=== PATIENT | male | born 1990 | race Caucasian/White ===

== ENCOUNTER 2018-12-06 14:36 | Emergency (ER) | payer SELFPAY ==
[2018-12-06 14:37] VITALS: BP 132/83; PULSE 90; RESP 16; TEMP 36.6; O2SAT 99; BMI 19.6
--- NOTE | 2018-12-06 14:52 | RAD_ITS ---
STUDY: X-RAY - RIGHT HAND REASON FOR EXAM: Male, 28 years old. Punched a wall, swelling TECHNIQUE: 3 view(s) of the hand. COMPARISON: None. FINDINGS: Normal radiocarpal articulation. Normal distal radioulnar joint. Normal visualized carpal bones. Normal carpal articulations Normal carpometacarpal articulation of the thumb. Normal second through fifth carpometacarpal joints. Normal metacarpi. Normal metacarpophalangeal joint of the thumb. Normal interphalangeal joint of the thumb. Normal proximal and distal phalanges of the thumb. Normal metacarpophalangeal joints of the second through fifth fingers. Normal proximal and distal interphalangeal joints of the second through fifth fingers. Normal phalanges of the second through fifth fingers. Dorsal hand soft tissue swelling. RAD/Hand Min 3 Views IMPRESSION: Dorsal hand soft tissue swelling without demonstrated fracture. Electronically Signed: Zak Curry MD at 15:28 EDT , Service support ,
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
[2018-12-06] MEDS: HYDROcodone Bitartrate/Apap 5/325 Tablet PO (14:57)
[2018-12-06 16:01] VITALS: BP 142/83; PULSE 73; RESP 15
== END 2018-12-06 16:03 | disposition home or self-care (01) ==
LOC: ED 15:07
PROVIDERS: Emergency Provider Emergency Medicine
DX: S60.221A Contusion of right hand, initial encounter (principal); W22.09XA Striking against other stationary object, initial encounter; Y93.9 Activity, unspecified; Y92.9 Unspecified place or not applicable; Y99.9 Unspecified external cause status
CPT/HCPCS: 73130; 99283

== ENCOUNTER 2020-02-07 18:24 | Emergency (ER) | payer SELFPAY ==
[2020-02-07 18:25] VITALS: BP 142/90; PULSE 73; PULSE 75; RESP 16; TEMP 36.6; O2SAT 100; BMI 19.8
--- NOTE | 2020-02-07 19:02 | EKG12_ITS ---
Test Reason : DIZZINESS Blood Pressure : / mmHG Vent. Rate : 060 BPM Atrial Rate : 060 BPM P-R Int : 108 ms QRS Dur : 098 ms QT Int : 384 ms P-R-T Axes : 040 076 066 degrees QTc Int : 384 ms Sinus rhythm with short AL Otherwise normal ECG Confirmed by CHARLES CALDERA, LIZET ([id number]), technical editor GUILLERMO VALE ([id number]) on 02/10/2020 10:47:34 AM Referred By: DARIUS Confirmed By:LIZET SOTO MD
--- NOTE | 2020-02-07 19:03 | ED.VISSUMM ---
- ER Visit Summary Date of Service: 02/07/20 Chief Complaint: Lightheaded and passed out 3 times on Saturday History of Present Illness: The patient is a 30 M no significant past medical history prior cholecystectomy. He states he was cutting grass on Saturday thought was hot. Said he felt lightheaded and said he passed out 3 separate times. Says normally not passed out before. He denies any chest pain or shortness of breath. No abdominal pain. No nausea, vomiting or diarrhea. States he is eating and drinking well. Denies any head injury or severe headaches. Physical Examination: Young male no acute distress vital signs are stable afebrile pulse ox 90% on room air no signs of hypoxia. H EENT exam normal. TMs are normal. Pupils round react light his motions are intact. No facial droop. Normal speech. Moist wheeze members. Posterior pharynx normal. No signs of trauma to his face or scalp. Neck nontender no meningismus. Able to touch chin to chest. No lymphadenopathy. Lungs clear to auscultation bilaterally. Heart regular rhythm no murmur rate about 75. Abdomen soft nontender normal bowel sounds no peritoneal signs. Extremities moves all 4. Calves nontender no edema no cords. 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 Dorsi plantarflexion intact. Normal range of motion both upper and lower extremities. Normal strength and sensation. Back nontender. Neurologically awake alert no focal motor deficits. NIH of 0. Fingertip to nose [id number] all within normal limits. Test Results: CBC shows a count of 6. Hemoglobin 16. No bands. Chemistries unremarkable normal creatinine gap. EKG normal sinus rhythm rate of 60 with no acute signs of AR or ischemia. No dysrhythmia. And unchanged from prior EKG from 2010. His SD interval is 108. Emergency Department Course and Treatment: Exam normal. Reportedly passed out 3 times on Saturday. None since. Screening labs orthostatic vital signs being obtained. Treatment Plan: Repeat exam patient is doing well at 8:19 PM. He and I went over his test he is comfortable being discharged home. Disposition: discharge Impression: Acute syncope uncertain etiology This note was generated with [employer] dictation software. It may contain incorrect words, spelling, and punctuation that were not noted in review of the chart prior to signing ED Disposition - Plan for ED Patient: Referrals: Care Physician,No Primary [Primary Care Provider] -
[2020-02-07 19:27] LABS: Absolute Neutrophil Count 4.7 X10^3/uL (2.0-7.7); Basophil# 0.04 X10^3/uL; Basophil% 0.6 % (0-1); Eosinophil# 0.13 X10^3/uL; Hematocrit 49.7 % (40-54); Hemoglobin 16.9 g/dL (13.0-16.5); Lymphocyte % 19.7 % (19-41); Mean Corpuscular Hgb 32.4 pg (27.0-32.0); Mean Corpuscular Volume 95.2 fL (80-94); Monocyte# 0.46 X10^3/uL; NRBC Flagged by Analyzer 0 % (0-5); Neutrophil # 4.67 X10^3/uL (2.7-7.7); Neutrophil % 70.5 % (47-70); Platelet Count 228 K/mm3 (150-450); RBC Distribution Width CV 11.7 % (11.6-14.6); RBC Distribution Width SD 40.3 fl (35.1-43.9); Red Blood Count 5.22 M/mm3 (4.6-6.2); White Blood Count 6.6 K/mm3 (4.4-11.0)
[2020-02-07 19:44] VITALS: BP 126/88; BP 129/84; BP 130/70; PULSE 66; PULSE 68; PULSE 70
[2020-02-07] MEDS: 0.9% Normal Saline 1,000 ML 1000 ML IV (19:45)
[2020-02-07 19:47] LABS: Anion Gap 3 (5-15); BUN 14 mg/dL (7-18); BUN/Creat Ratio 11.7 RATIO (10-20); Calcium,Total 8.6 mg/dL (8.5-10.1); Chloride 108 mmol/L (98-107); EST Glomerular Filtration Rate 75 mL/min (>60); Est Glom Filt Rate - Afr Amer 91 mL/min (>60); Estimated Creatinine Clearance 76.58 ml/min; Glucose 86 mg/dL (74-106); Potassium 4.6 mmol/L (3.5-5.1); Sodium Level 143 mmol/L (136-145)
--- NOTE | 2020-02-07 20:22 | ED.DEP ---
ED Disposition - Plan for ED Patient: Disposition: Home or Assisted Living Instructions: ED Fainting Uncertain Cause Referrals: Ra Levy MD [STAFF PHYSICIAN] - 3-5 Days if not improving Additional Instructions: Plenty of fluids and rest. Your blood work, blood counts, electrolytes and EKG today were normal. This may have been a simple case of dehydration when you were working in the heat. Follow-up if not improving or return if worse.
[2020-02-07 20:31] VITALS: BP 112/94; PULSE 65; RESP 16; O2SAT 100
== END 2020-02-07 20:31 | disposition home or self-care (01) ==
PROVIDERS: Emergency Provider Emergency Medicine
DX: R55 Syncope and collapse (principal); Z72.0 Tobacco use
CPT/HCPCS: 80048; 85025; 93005; 96360; 99284; J7030; A4216

== ENCOUNTER 2020-04-17 22:25 | Emergency (ER) | payer SELFPAY ==
[2020-04-17 22:25] VITALS: BP 145/98; PULSE 90; RESP 15; TEMP 36.8; O2SAT 99; BMI 20.3
--- NOTE | 2020-04-17 23:02 | RAD_ITS ---
HISTORY: injured knee while playing basketball ADDITIONAL HISTORY: None provided. EXAMINATION/TECHNIQUE: XR Knee Complete 4 Views or More Left Number of images including paperwork: 4 COMPARISON: None FINDINGS: BONES: No acute fracture. JOINTS: No subluxation. Small joint effusion. SOFT TISSUES: No distinct foreign body. RAD/Knee 4 or More Views IMPRESSION: No acute osseous abnormality. Small joint effusion. at 2349 Reported and signed by: Nichole Carlos MD Electronically Signed: Nichole Carlos MD at 23:49 EDT Tel , Service support ,
[2020-04-17] MEDS: Naproxen 500 MG Tablet PO (23:11)
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
[2020-04-18 00:06] VITALS: BP 135/78; PULSE 72; RESP 16; O2SAT 100
== END 2020-04-18 00:07 | disposition home or self-care (01) ==
LOC: ED 23:14
PROVIDERS: Emergency Provider Emergency Medicine
DX: M25.562 Pain in left knee (principal); Z72.0 Tobacco use
CPT/HCPCS: 73564; 99281

== ENCOUNTER → 2020-04-30 08:34 | Outpatient (CLI) | payer SELFPAY ==
[2020-04-22 08:08] VITALS: BMI 20.7
--- NOTE | 2020-04-30 08:37 | MRI_ITS ---
STUDY: MRI LEFT KNEE REASON FOR EXAM: Male, 30 years old. Knee injury, knee pain. TECHNIQUE: Standardized fat and water weighted pulse sequences were obtained in all 3 orthogonal planes. COMPARISON: 04/17/2020 FINDINGS: 1 cm trizonal flap tear of the posterior horn body junction of the medial meniscus extending to the inferior surface. Normal hyaline cartilage of the medial femorotibial compartment. Normal medial femoral condyle and tibial plateau. Normal medial collateral ligamentous complex (MCL). Normal distal semimembranosus, gracilis and semitendinosus tendons. Normal lateral meniscus. Normal hyaline cartilage of the lateral femorotibial compartment. Normal lateral femoral condyle and tibial plateau. Normal proximal tibiofibular articulation. Normal lateral collateral (fibular) ligament. Normal popliteus tendon. Normal biceps femoris tendon. Normal anterior cruciate ligament (ACL). Normal posterior cruciate ligament (PCL). Normal congruent patellofemoral articulation. Normal hyaline cartilage of the patellofemoral compartment. Normal medial and lateral patellar retinaculum. Normal quadriceps tendon. Normal patellar tendon. Normal Hoffa''s fat pad. There is a small volume joint effusion. 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 The soft tissues are unremarkable. The otherwise visualized osseous structures are unremarkable. MRI/Lower Ext Joint Only (Routine) IMPRESSION: 1 cm trizonal flap tear of the posterior horn body junction of the medial meniscus extending to the inferior surface which may be acute or chronic. Electronically Signed: Guru Covarrubias MD at 13:32 EDT Tel , Service support ,
== END ==
PROVIDERS: Referring Provider Orthopaedic Surgery; Visit Provider Orthopaedic Surgery
DX: S83.242A Other tear of medial meniscus, current injury, left knee, initial encounter (principal); X58.XXXA Exposure to other specified factors, initial encounter; M23.92 Unspecified internal derangement of left knee
CPT/HCPCS: 73721

== ENCOUNTER → 2020-06-13 09:05 | Outpatient (CLI) | payer SELFPAY ==
[2020-04-22 08:08] VITALS: BMI 20.7
== END ==
PROVIDERS: Referring Provider Orthopaedic Surgery; Visit Provider Orthopaedic Surgery
DX: Z01.812 Encounter for preprocedural laboratory examination (principal); Z20.828 Contact with and (suspected) exposure to other viral communicable diseases
CPT/HCPCS: 36415; 87426; C9803

== ENCOUNTER 2021-02-27 11:27 | Emergency (ER) | payer OTHER, SELFPAY ==
[2021-02-27 11:27] VITALS: BP 150/90; PULSE 94; RESP 18; TEMP 36.2; O2SAT 97; BMI 22.3
--- NOTE | 2021-02-27 12:14 | EDS_ITS ---
HPI History of Present Illness Chief Complaint: Allergic Reaction Informant: patient Onset/Context/Timing Onset: Today Context: Sudden Onset Timing: Continuous Quality: Sharp Location: Left ankle Worsened by: Nothing Relieved by: Cold water Narrative Narrative: Patient presents with possible allergic reaction that occurred today. Patient states he was using a weed eater when he was stung on his left ankle by a bee. Patient states he has a history of allergic reactions to bee stings. Patient states he felt like his throat was starting to swell and he was having difficulty swallowing. Patient denies any difficulty breathing. Patient denies any urticaria. Patient denies any fevers or chills. PFSH PFSH no medical history Home Medications ibuprofen 200 mg PO PRN PRN 06/03/20 [History Last Taken Unknown] Allergy/AdvReac Type Severity Reaction Status Date / Time adhesive tape Allergy Rash Verified 02/27/21 11:29 sulfamethoxazole Allergy Rash Verified 02/27/21 11:29 [From Bactrim] trimethoprim [From Bactrim] Allergy Rash Verified 02/27/21 11:29 Surgical History Hx of lymph node excision Social History Smoking Status: Current every day smoker ROS ROS ED Constitutional Constitutional ED: Denies chills or fever(s) Eyes Eyes: Denies blurry vision or change in vision ENT ENT ED: Denies rhinorrhea or sore throat Cardiovascular Cardiovascular: Denies chest pain or palpitations Respiratory/Chest Respiratory/Chest: Reports dyspnea; Denies cough Gastrointestinal Gastrointestinal: Denies nausea or vomiting Genitourinary Genitourinary ED: Denies dysuria or hematuria Musculoskeletal Musculoskeletal: Denies back pain or neck pain Integumentary Denies abscess or rash Neurologic Neurologic: Denies headache(s) or weakness Allergic/Immunologic Allergic/Immunologic ED: Denies mouth swelling or urticaria EXAM Physical Exam Const Vital Signs: 02/27/21 11:27 Temperature 97.1 F L Temperature Source Temporal Pulse Rate 94 Respiratory Rate 18 Blood Pressure 150/90 H Blood Pressure Mean 110 Pulse Ox 97 Oxygen Delivery Method Room Air Positive well nourished and well developed General Appearance ED: well developed HEENT Reports moist mucous membranes HEENT Narrative: Oropharynx is clear. Airway is patent. There is no edema. Neck supple and no JVD Resp normal respiratory effort and clear to auscultation bilaterally Cardio regular rate and regular rhythm GI normal to inspection, nondistended, normoactive bowel sounds and non-tender Palpation: soft Neuro oriented x3, CN's II-XII intact bilaterally and no sensory deficits noted Sensorium / Orientation: alert Motor Exam: strength 5/5 throughout Skin Skin Narrative: There is some erythema over the lateral aspect of the left an kle. There is some mild tenderness over this area. There is no vesicles or pustules. There is no discharge or drainage. There is no abscess formation. There is no urticaria noted. MDM MDM MDM Narrative Medical decision making narrative: Patient was advised that this is more of a local reaction and not a systemic reaction. Patient was advised that bee stings, yellowjacket stings, a wasp stings, and hornet stings are all different. Patient was instructed to use hydrocortisone cream and Benadryl cream as needed for itching. Patient was instructed to follow-up with his primary care physician in 5 to 7 days. Patient was instructed return if worse in any way. Patient understood and was agreeable with the plan. All questions were answered. Discharge Plan Triage Chief Complaint: Allergic Reaction ED Provider: Ra Leonard Dx/Rx/DC Orders Clinical Impression: Local reaction to hymenoptera sting Instructions: ED Insect Sting, Local Reaction Prescriptions: No Action ibuprofen 200 MG capsule 200 mg PO PRN PRN (Reason: Pain 1-10 Or Fever) RF: 0 Primary Care Provider: Care Physician,No Primary Referrals: Mihir Contreras MD [STAFF PHYSICIAN] - Care Physician,No Primary [Primary Care Provider] - Disposition Disposition: Home, Self Care
[2021-02-27 12:43] VITALS: BP 126/68; PULSE 62; RESP 15; O2SAT 98
== END 2021-02-27 12:54 | disposition home or self-care (01) ==
LOC: ED 12:50
PROVIDERS: Emergency Provider Emergency Medicine
DX: T63.441A Toxic effect of venom of bees, accidental (unintentional), initial encounter (principal); R09.89 Other specified symptoms and signs involving the circulatory and respiratory systems; R13.10 Dysphagia, unspecified; Y92.9 Unspecified place or not applicable; F17.200 Nicotine dependence, unspecified, uncomplicated
CPT/HCPCS: 99282

== ENCOUNTER 2021-04-24 10:42 | Emergency (ER) | payer SELFPAY ==
[2021-04-24 10:44] VITALS: BP 146/93; PULSE 63; RESP 16; TEMP 36.1; O2SAT 98; BMI 23.6
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
== END 2021-04-24 11:43 | disposition home or self-care (01) ==
PROVIDERS: Emergency Provider Emergency Medicine
DX: M54.41 Lumbago with sciatica, right side (principal); F17.210 Nicotine dependence, cigarettes, uncomplicated
CPT/HCPCS: 99282

== ENCOUNTER 2021-11-01 08:56 | Emergency (ER) | payer SELFPAY ==
[2021-11-01 08:56] VITALS: BP 147/91; PULSE 71; RESP 14; TEMP 36.2; O2SAT 100; BMI 22.1
--- NOTE | 2021-11-01 09:24 | US_ITS ---
EXAM: US SCROTUM CLINICAL INDICATION: pain TECHNIQUE: Realtime ultrasound of the testicles was performed with grayscale and Color Doppler analysis. This report was created using [employer] report [employer] technology. COMPARISON: None. FINDINGS: RIGHT TESTICLE: Unremarkable. Normal in size and echotexture. No focal lesion. Normal blood flow is present. LEFT TESTICLE: Unremarkable. Normal in size and echotexture. No focal lesion. Normal blood flow is present. EPIDIDYMIDES: Unremarkable. Normal in size and echotexture, without focal lesion. Normal color Doppler flow pattern in the epididymis. SCROTUM: Unremarkable. No hydrocele. No varicocele. US/Testicular with Arterial Flow IMPRESSION: Unremarkable bilateral testicular ultrasound. Electronically Signed: Zak Curry MD ([place]) at 10:06 EDT Reading Location ID and State: / ID , Service support ,
--- NOTE | 2021-11-01 09:24 | RAD_ITS ---
STUDY: X-RAY - LUMBAR SPINE REASON FOR EXAM: Male, 31 years old. pain TECHNIQUE: 2 view(s) of the lumbar spine were obtained. COMPARISON: None FINDINGS: Normal lumbar lordosis. There is no substantial scoliosis. There is a normal alignment of the vertebrae. Normal vertebral bodies and endplates. Normal disc space heights. There is no demonstrated fracture. The soft tissue structures are unremarkable. RAD/Lumbar Spine 2 or 3 Views IMPRESSION: Normal x-ray examination of the lumbar spine. Electronically Signed: Zak Curry MD ([place]) at 10:15 EDT Reading Location ID and State: [place] , Service support ,
--- NOTE | 2021-11-01 09:25 | ED.VIS.BACK ---
HPI History of Present Illness Chief Complaint: Back Informant: patient Narrative Narrative: Patient present with laceration of back pain. He has had back pain for 2 or 3 years. 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 He does not have any acute new injury. Every couple months he has exacerbation of his pain. This is been hurting him more for about 2 to 3 days now. Pain is up and down his spine from mid thorax all the way down. This is typical for him. He has more on the right than the left. It radiates down both legs but only to the proximal anterior lateral thigh area. It does not go to mid thigh or beyond. He does not have any numbness tingling or weakness. He has no change in bowel habits. He has no urinary incontinence or retention. However, when I talked to him about urinary issues he does state that he has had soreness in his testicles for about 3 months. He feels that the epididymis on the right is a little bit swollen at times. He has not had any weight loss. He has no night sweats. He has not felt any mass. He has had imaging of his lumbar spine but its been some years. He has not seen anyone about the testicles as he does not have insurance and has not been able to get in. Heating pad makes his back feel better when it is on but it worsens when it is off. [facility] Medical History Back pain Home Medications cyclobenzaprine 10 mg PO BID PRN #10 tab 11/01/21 [Rx Last Taken Unknown] naproxen 500 mg PO BID #14 tab 11/01/21 [Rx Last Taken Unknown] prednisone 60 mg PO DAILY #15 tab 11/01/21 [Rx Last Taken Unknown] Allergy/AdvReac Type Severity Reaction Status Date / Time adhesive tape Allergy Rash Verified 11/01/21 08:58 sulfamethoxazole Allergy Rash Verified 11/01/21 08:58 [From Bactrim] trimethoprim [From Bactrim] Allergy Rash Verified 11/01/21 08:58 Surgical History Hx of lymph node excision Social History Smoking Status: Current every day smoker tobacco type: cigarettes ROS ROS ED Constitutional Constitutional ED: Denies chills, fever(s), sweats or weight loss ENT ENT ED: Denies rhinorrhea or sore throat Cardiovascular Cardiovascular: Denies chest pain or palpitations Respiratory/Chest Respiratory/Chest: Denies dyspnea or sputum Gastrointestinal Gastrointestinal: Denies abdominal pain, constipation, diarrhea, melena, nausea or vomiting Genitourinary Genitourinary ED: Reports other Details: See history of present illness peer ; Denies dysuria, hematuria or urinary frequency Musculoskeletal Musculoskeletal: Reports back pain and myalgias Integumentary Denies rash Neurologic Neurologic: Denies paresthesias or weakness Endocrine Endocrinology: Denies polydipsia or polyuria Hematologic/Lymphatic Hematologic/Lymphatic: Denies easy bleeding or easy bruising Allergic/Immunologic Allergic/Immunologic ED: Denies mouth swelling or urticaria EXAM Physical Exam Const Vital Signs: 11/01/21 08:56 Temperature 97.2 F L Temperature Source Temporal Pulse Rate 71 Respiratory Rate 14 Blood Pressure 147/91 H Blood Pressure Mean 109 Pulse Ox 100 Oxygen Delivery Method Room Air Positive well nourished and well developed General Appearance ED: well developed and NAD HEENT Reports moist mucous membranes Eyes General Eye ED: Negative for pale conjunctiva or scleral icterus Neck no JVD Resp normal respiratory effort Cardio regular rate and regular rhythm GI normal to inspection, nondistended, normoactive bowel sounds, soft to palpation, non-tender and non-distended GI Narrative: No mass or lymph nodes felt in abdominal wall. Narrative: No inguinal lymphadenopathy. No lesions. Testicles feel normal and have a normal lie. There may be very mild fullness of the epididymis on the right versus left. No discharge. Overall this is a relatively normal exam. There is no sign of herniation. Back/Spine normal to inspection Back/Spine Narrative: Patient has palpable muscle spasm more on the right than the left of his spine. He has paraspinal tenderness. No bony tenderness. No lesions. No buttock or sciatic notch tenderness. Extremity normal to inspection General Extremety ED: Negative for edema or tenderness General Extremity: Negative for edema Neuro Neuro Narrative: Patient has normal sensation and strength throughout. He can stand up out of the bed easily. He rotates. Quad strength is well as lower leg strength is intact. He can stand up on his toes. Reflexes and sensation is normal. He has a normal neurologic lower extremity exam. Sensorium / Orientation: alert Deep Tendon Reflexes: Rt Patellar (L4): 2+, Lt Patellar (L4): 2+, Rt Ankle (S1): 1+ and Lt Ankle (S1): 1+ Deep Tendon Reflexes Back: Rt Patellar (L4): 2+, Lt Patellar (L4): 2+, Rt Ankle (S1): 1+ and Lt Ankle (S1): 1+ Skin no rashes or lesions noted MDM MDM MDM Narrative Medical decision making narrative: Because this patient's had back pain for some years and now has had some testicular issues we did look a little further. I did do lumbar spine films as well as an ultrasound of the testicles. No sign of lytic lesions or cancer. His history and exam is most consistent with musculoskeletal back pain. I think we can treat it as such. I will give him referral to primary physician and explained the importance of follow-up. Radiography Diagnostic Testing: Clinical Impression(s) from Imaging Studies Lumbar Spine X-Ray 11/01/21 09:24 IMPRESSION: Normal x-ray examination of the lumbar spine. Electronically Signed: Zak Curry MD ([place]) at 10:15 EDT , Testicular Ultrasound 11/01/21 09:24 IMPRESSION: Unremarkable bilateral testicular ultrasound. Electronically Signed: Zak Curry MD ([place]) at 10:06 EDT , Discharge Plan Triage Chief Complaint: Back ED Provider: Jae Cullen Dx/Rx/DC Orders Clinical Impression: Back strain, Chronic pain in testicle Instructions: ED Back Sprain/Strain Prescriptions: New cyclobenzaprine 10 mg tablet 10 mg PO BID PRN (Reason: muscle spasm) Qty: 10 RF: 0 prednisone 20 MG tablet 60 mg PO DAILY Qty: 15 RF: 0 naproxen 500 MG tablet 500 mg PO BID Qty: 14 RF: 0 Primary Care Provider: Care Physician,No Primary Referrals: Sugey Jin MD [STAFF PHYSICIAN] - 3-5 Days Care Physician,No Primary [Primary Care Provider] - Disposition Disposition: Home, Self Care
== END 2021-11-01 11:35 | disposition home or self-care (01) ==
PROVIDERS: Emergency Provider Emergency Medicine; Visit Provider Emergency Medicine
DX: S39.012A Strain of muscle, fascia and tendon of lower back, initial encounter (principal); X58.XXXA Exposure to other specified factors, initial encounter; N50.811 Right testicular pain; N50.812 Left testicular pain; F17.210 Nicotine dependence, cigarettes, uncomplicated; G89.29 Other chronic pain
CPT/HCPCS: 72100; 76870; 93976; 99282

== ENCOUNTER 2022-03-27 09:12 | Emergency (ER) | payer SELFPAY ==
[2022-03-27 09:12] VITALS: BP 155/86; PULSE 64; RESP 16; TEMP 36.6; O2SAT 100; BMI 19.8
--- NOTE | 2022-03-27 09:50 | CT_ITS ---
STUDY: CT ABDOMEN AND PELVIS WITH CONTRAST REASON FOR EXAM: Male, 32 years old. Diffuse abdominal pain RADIATION DOSAGE (If Supplied By Facility): CTDIvol = ( 11.49 ) mGy, DLP = ( 327.03 ) mGycm TECHNIQUE: Transaxial images were obtained from the dome of the diaphragm to the symphysis pubis without oral contrast. IV 100mL Isovue-300 was administered. Sagittal and coronal images were reconstructed. Individualized dose optimization techniques were used for this CT. COMPARISON: 10/23/2020 FINDINGS: The visualized lung bases are unremarkable. The visualized portions of the heart are within normal limits. Normal liver. There are surgical clips in the gallbladder fossa consistent with a prior cholecystectomy. Normal spleen. Normal pancreas. Normal bilateral adrenal glands. Normal right kidney. Normal left kidney. Normal visualized stomach. Normal small intestine. Normal colon. The appendix is visualized and appears normal. Appendix seen on axial images 77 through 81 Normal abdominal aorta. Normal inferior vena cava. Normal retroperitoneum. Normal urinary bladder. Normal abdominal wall. Normal osseous structures. CT/Abdomen/Pelvis W IV Cont ONLY IMPRESSION: No suspicious solid abnormality. Previous cholecystectomy No free intraperitoneal fluid, air, or suspicious adenopathy, normal appendix visualized No interval change Electronically Signed: Daquan Huff MD at 11:02 EDT ,
--- NOTE | 2022-03-27 09:59 | ED.VIS.GI ---
HPI HPI - GI History of Present Illness Chief Complaint: Abd Pain Informant: patient and spouse/S.O. Narrative Narrative: 32-year-old male presenting to the emergency room with right flank pain. Patient states he had pain beginning on Saturday. He tells me has been constant but then he also tells me that comes and goes. He states it comes at random times and stays for about 20 minutes it is sharp in nature. Then tells me its variable and still minimal come back. Then he circles back and tells me that it is constant. He denies any urinary symptoms he denies any changes in bowel control. No fevers. He had similar episode in the spring of this year when he was in half-way. No etiology was found at that time. He has had prior cholecystectomy. He notes that he has been having intermittent chronic right testicular pain of unknown etiology. He has not followed up with anybody from his ER visits for these pains. He notes that nothing seems to make it better or worse. PFSH PFS Medical History Back pain Home Medications cyclobenzaprine 10 mg tablet 10 mg PO BID PRN muscle spasm #10 tabs 11/01/21 [Rx Last Taken Unknown] naproxen 500 mg tablet 500 mg PO BID #14 tabs 11/01/21 [Rx Last Taken Unknown] prednisone 20 mg tablet 60 mg PO DAILY #15 tabs 11/01/21 [Rx Last Taken Unknown] Allergy/AdvReac Type Severity Reaction Status Date / Time adhesive tape Allergy Rash Verified 03/27/22 09:15 sulfamethoxazole Allergy Rash Verified 03/27/22 09:15 [From Bactrim] trimethoprim [From Bactrim] Allergy Rash Verified 03/27/22 09:15 Surgical History Hx of lymph node excision Social History (Updated 03/27/22 @ 10:[address] Castro Meeks DO) current gender identity: male Smoking Status: Current every day smoker tobacco type: cigarettes ROS ROS ED Constitutional Constitutional ED: Denies chills, fever(s) or weight loss Eyes Eyes: Denies change in vision or diplopia ENT ENT ED: Denies ear pain, rhinorrhea or sore throat Cardiovascular Cardiovascular: Denies chest pain, orthopnea, palpitations or racing heartbeat Respiratory/Chest Respiratory/Chest: Denies cough, dyspnea or orthopnea Gastrointestinal Gastrointestinal: Reports abdominal pain; Denies constipation, diarrhea, nausea or vomiting Genitourinary Genitourinary ED: Denies dysuria, hematuria or urinary frequency Musculoskeletal Musculoskeletal: Denies arthralgias, back pain, myalgias or neck pain Integumentary Denies abscess or rash Neurologic Neurologic: Denies headache(s) or weakness Psychiatric Psychiatric: Denies anxiety, depression, suicidal ideation or suicidal thoughts Endocrine Endocrinology: Denies polydipsia, polyphagia or polyuria Allergic/Immunologic Allergic/Immunologic ED: Denies mouth swelling, tongue swelling or urticaria EXAM Physical Exam Const Vital Signs: 03/27/22 09:12 Temperature 97.9 F Temperature Source Temporal Pulse Rate 64 Respiratory Rate 16 Blood Pressure 155/86 H Blood Pressure Mean 109 Pulse Ox 100 Oxygen Delivery Method Room Air Positive well nourished and well developed General Appearance ED: well developed HEENT Reports normocephalic, head/scalp atraumatic and moist mucous membranes Eyes PERRL and EOMs intact bilaterally Neck no lymphadenopathy, supple and no JVD Resp normal respiratory effort and clear to auscultation bilaterally Cardio regular rate, regular rhythm and no murmurs GI non-tender GI Narrative: The patient is pointing to the right lower lumbar paraspinal region and points over towards the right lower quadrant as the area that hurts. Auscultation: normoactive bowel sounds Palpation: soft and tender; Negative for guarding, hepatomegaly, splenomegaly or rebound tenderness present Narrative: Patient circumcised. He is demonstrating no obvious scrotal pathology. There is no hernia with Valsalva. No erythema. Back/Spine no CVA tenderness and normal ROM Extremity normal to inspection General Extremety ED: Negative for edema General Extremity: Negative for edema Neuro oriented x3 and CN's II-XII intact bilaterally Sensorium / Orientation: alert Motor Exam: strength 5/5 throughout Psych mental status grossly normal Mood & Affect: Negative for depressed or tearful Skin no rashes or lesions noted and no wounds MDM MDM MDM Narrative Medical decision making narrative: White count returns at 4.4 with a hemoglobin of 16.1. CMP is normal lipase 128. Urinalysis is normal. CT of the abdomen pelvis shows prior cholecystectomy but no acute pathology. Clinically I find his pain to be very vague. He appears clinically very stable. He does note that he has been lifting some heavy objects recently but does not recall a specific incident that caused pain. With continued testicular pain and his flank pain/abdominal pain think the patient would benefit from further care as an outpatient. I suggest that he establish care rather than relying on the emergency department for his needs. I will refer him to several providers. Lab Data Attestation: I reviewed the patient's lab results. Labs: Laboratory Results - last 24 hr 03/27/22 03/27/22 03/27/22 09:55 09:55 10:45 WBC 4.4 RBC 5.04 Hgb 16.1 Hct 46.4 MCV 92.1 MCH 31.9 MCHC 34.7 RDW Std Deviation 38.9 RDW Coeff of Jenniffer 11.5 L Plt Count 201 MPV 9.2 Immature Gran % (Auto) 0.200 Neut % (Auto) 63.3 Lymph % (Auto) 26.1 Brooks % (Auto) 7.7 Eos % (Auto) 2.0 Baso % (Auto) 0.7 Absolute Neuts (auto) 2.8 Absolute Lymphs (auto) 1.15 Nucleated RBC % 0 Sodium 143 Potassium 4.6 Chloride 108 H Carbon Dioxide 29.0 Anion Gap 6 BUN 15 Creatinine 1.26 Estim Creat Clear Calc 71.69 Est GFR (MDRD) Af Amer 85 Est GFR (MDRD) Non-Af 70 BUN/Creatinine Ratio 11.9 Glucose 91 Calcium 9.0 Total Bilirubin 0.80 AST 10 L ALT 23 Alkaline Phosphatase 63 Total Protein 6.9 Albumin 3.9 Globulin 3.0 Albumin/Globulin Ratio 1.3 Lipase 128 Urine Color Yellow Urine Clarity Clear Urine pH 6.0 Ur Specific [place] 1.015 Urine Protein 15 H Urine Glucose (UA) Normal Urine Ketones Negative Urine Occult Blood Negative Urine Nitrite Negative Urine Bilirubin Negative Urine Urobilinogen Normal Ur Leukocyte Esterase Negative Radiography Diagnostic Testing: Clinical Impression(s) from Imaging Studies Abdomen/Pelvis CT 03/27/22 09:50 IMPRESSION: No suspicious solid abnormality. Previous cholecystectomy No free intraperitoneal fluid, air, or suspicious adenopathy, normal appendix visualized No interval change Electronically Signed: Daquan Huff MD at 11:02 EDT , Discharge Plan Triage Chief Complaint: Abd Pain ED Provider: Castro Meeks Dx/Rx/DC Orders Clinical Impression: Abdominal pain, Chronic pain in testicle Instructions: ED Abdominal Pain Unkn Cause Male... Prescriptions: No Action cyclobenzaprine 10 mg tablet 10 mg PO BID PRN (Reason: muscle spasm) Qty: 10 0RF prednisone 20 MG tablet 60 mg PO DAILY Qty: 15 0RF naproxen 500 MG tablet 500 mg PO BID Qty: 14 0RF Primary Care Provider: Care Physician,No Primary Referrals: Bradley Machado MD [Med Staff - Active Staff] - As soon as possible (for urology) Care Physician,No Primary [Primary Care Provider] - Hank Armstrong NP, [employer] [Med Staff - Adv Practice Prof] - As soon as possible (for primary care) Disposition Disposition: Home, Self Care
[2022-03-27 10:03] LABS: Absolute Lymphocyte Count 1.15 X10^3/uL (0.83-4.51); Absolute Neutrophil Count 2.8 X10^3/uL (2.0-7.7); Basophil# 0.03 X10^3/uL; Basophil% 0.7 % (0-1); Eosinophil# 0.09 X10^3/uL; Hematocrit 46.4 % (40-54); Hemoglobin 16.1 g/dL (13.0-16.5); Lymphocyte # 1.15 X10^3/ul (0.83-4.51); Lymphocyte % 26.1 % (19-41); Mean Corp Hgb Conc 34.7 g/dL (32-36); Mean Corpuscular Hgb 31.9 pg (27.0-32.0); Mean Corpuscular Volume 92.1 fL (80-94); Mean Platelet Vol. 9.2 fl (6.2-12.0); Monocyte# 0.34 X10^3/uL; Monocyte% 7.7 % (0-10); NRBC Flagged by Analyzer 0 % (0-5); Neutrophil # 2.78 X10^3/uL (2.7-7.7); Neutrophil % 63.3 % (47-70); Platelet Count 201 K/mm3 (150-450); RBC Distribution Width CV 11.5 % (11.6-14.6); RBC Distribution Width SD 38.9 fl (35.1-43.9); Red Blood Count 5.04 M/mm3 (4.6-6.2); White Blood Count 4.4 K/mm3 (4.4-11.0)
[2022-03-27 10:17] LABS: ALB/GLOB Ratio 1.3 RATIO (0.9-2.4); AST(SGOT) 10 U/L (15-37); Alanine Aminotransfer ALT/SGPT 23 U/L (16-61); Albumin, Serum 3.9 g/dL (3.2-5.0); Alkaline Phosphatase 63 U/L (45-117); Anion Gap 6 (5-15); BUN 15 mg/dL (7-18); BUN/Creat Ratio 11.9 RATIO (10-20); Chloride 108 mmol/L (98-107); Creatinine, Serum 1.26 mg/dL (0.70-1.30); EST Glomerular Filtration Rate 70 mL/min (>60); Est Glom Filt Rate - Afr Amer 85 mL/min (>60); Estimated Creatinine Clearance 71.69 ml/min; Glucose 91 mg/dL (74-106); Lipase 128 U/L (73-393); Potassium 4.6 mmol/L (3.5-5.1); Protein, Total 6.9 g/dL (6.4-8.2); Sodium Level 143 mmol/L (136-145)
[2022-03-27 10:49] LABS: Bacteria 0 SEEN /hpf (None Seen); Mucous, Urine 0 SEEN /hpf (<or=2+); Red Blood Cells-Urine 0 SEEN /hpf (0-5); Squamous Epithelial Cells - UA 0 SEEN /hpf (0-5); White Blood Cells 0 SEEN /hpf (0-5)
[2022-03-27 10:50] LABS: Color, Urine Yellow (Yellow); Glucose, Dipstick Normal (Normal); Ketone-Dipstick Negative (Negative); Leukocyte Esterase-Dipstick Negative /ul (Negative); Nitrite-Dipstick Negative (Negative); Occult Blood-Urine Negative /ul (Negative); Protein-Dipstick 15 mg/dl (Negative); Specific Gravity, Urine 1.015 (1.002-1.030); Urine Bilirubin Dipstick Negative (Negative); Urine Clarity Clear (Clear); Urine Urobilinogen Normal (Normal)
[2022-03-27 11:28] VITALS: BP 131/78; RESP 16
== END 2022-03-27 11:29 | disposition home or self-care (01) ==
PROVIDERS: Emergency Provider Emergency Medicine; Visit Provider Emergency Medicine
DX: R10.31 Right lower quadrant pain (principal); N50.811 Right testicular pain; G89.29 Other chronic pain; F17.210 Nicotine dependence, cigarettes, uncomplicated; Z90.49 Acquired absence of other specified parts of digestive tract
CPT/HCPCS: 74177; 80053; 81001; 83690; 85025; 99284; Q9967

== ENCOUNTER 2022-04-14 23:55 | Emergency (ER) | payer SELFPAY ==
[2022-04-14 23:56] VITALS: BP 174/85; PULSE 96; RESP 18; TEMP 36.9; O2SAT 100; BMI 20.8
--- NOTE | 2022-04-15 00:12 | EDS_ITS ---
HPI History of Present Illness Chief Complaint: Lower Extremity Injury Informant: patient Narrative Narrative: Patient hit his left pinedo on a trailer hitch about 10 hours ago. He is a avulsion of skin. Its had intermittent oozing since. He is on no medicine no anticoagulation. Unknown last tetanus. No other injury or complaints. Nothing specifically makes better or worse. [facility] Medical History Back pain Allergy/AdvReac Type Severity Reaction Status Date / Time adhesive tape Allergy Rash Verified 03/27/22 09:15 sulfamethoxazole Allergy Rash Verified 03/27/22 09:15 [From Bactrim] trimethoprim [From Bactrim] Allergy Rash Verified 03/27/22 09:15 Surgical History Hx of lymph node excision Social History Smoking Status: Current every day smoker tobacco type: cigarettes ROS ROS ED Constitutional Constitutional ED: Denies chills or fever(s) Gastrointestinal Gastrointestinal: Denies nausea or vomiting Musculoskeletal Musculoskeletal: Reports other Details: See history of present illness. Integumentary Reports other Details: Avulsion as in history of present illness. Neurologic Neurologic: Denies paresthesias or weakness Endocrine Endocrinology: Denies polydipsia or polyuria Hematologic/Lymphatic Hematologic/Lymphatic: Denies easy bleeding or easy bruising EXAM Physical Exam Const Vital Signs: 04/14/22 23:56 Temperature 98.4 F Temperature Source Oral Pulse Rate 96 Respiratory Rate 18 Blood Pressure 174/85 H Blood Pressure Mean 114 Pulse Ox 100 Oxygen Delivery Method Room Air Positive well nourished and well developed General Appearance ED: well developed HEENT atraumatic Resp normal respiratory effort Extremity Extremity Narrative: Patient has a loss of tissue about 1-1/2 cm triangular on the left anterior pinedo. There is a little bit of serous drainage but no bleeding at this time. Mild local swelling. No sign of early infection. No deformity. He is able to bear weight. Neuro Sensorium / Orientation: alert Skin Skin Narrative: See above under extremity exam. MDM MDM MDM Narrative Medical decision making narrative: X-rays show no significant bony involvement. He has avulsion of the skin. There is really nothing that I can suture. He will have clean dressings applied. He should return if he develops erythema, warmth, purulent drainage, fever red streak up the leg or other concerns. Tetanus will be updated here. Radiography Diagnostic Testin view x-ray of the left tib-fib read by me shows no sign of acute foreign body or fracture. Normal mineralization. Discharge Plan Triage Chief Complaint: Lower Extremity Injury ED Provider: Jae Cullen Dx/Rx/DC Orders Clinical Impression: Avulsion of skin of left lower leg, Contusion of left leg Instructions: ED Skin Avulsion Primary Care Provider: Care Physician,No Primary Referrals: Mihir Whipple MD [Med Staff - Gyroscopic Instrument Mechanic] - 3-5 Days if not improving Care Physician,No Primary [Primary Care Provider] - Disposition Disposition: Home, Self Care
--- NOTE | 2022-04-15 00:19 | RAD_ITS ---
STUDY: X-RAY - LEFT TIBIA AND FIBULA REASON FOR EXAM: Male, 32 years old. Trauma TECHNIQUE: 4 view(s) of the tibia and fibula were obtained. COMPARISON: None. FINDINGS: BONES: No fracture demonstrated. JOINTS: No dislocation. SOFT TISSUES: Unremarkable. RAD/Tibia & Fibula 2 Views IMPRESSION: No evidence of fracture. Electronically Signed: Nadya Herrera MD at 0:53 EDT ,
[2022-04-15] MEDS: Diphth,Pertuss(Acell),Tet Vac 0.5 ML Vial IM (00:31)
== END 2022-04-15 00:42 | disposition home or self-care (01) ==
PROVIDERS: Emergency Provider Emergency Medicine; Visit Provider Emergency Medicine
DX: S81.802A Unspecified open wound, left lower leg, initial encounter (principal); S80.12XA Contusion of left lower leg, initial encounter; W22.09XA Striking against other stationary object, initial encounter; F17.210 Nicotine dependence, cigarettes, uncomplicated; Z23 Encounter for immunization
CPT/HCPCS: 73590; 90471; 90715; 99282

== ENCOUNTER 2022-04-22 21:42 | Emergency (ER) | payer SELFPAY ==
[2022-04-22 21:43] VITALS: BP 168/94; PULSE 78; RESP 16; TEMP 36.6; O2SAT 99; BMI 20.7
--- NOTE | 2022-04-22 22:07 | EX.ED.DYSGE1 ---
HPI History of Present Illness Chief Complaint: Wound Narrative Narrative: Patient is a 32-year-old male with no significant past medical history. He was seen in the ER 6 days ago as he struck his left pinedo into a trailer hitch. He sustained a laceration/skin avulsion to the anterior aspect of his left mid pinedo. At that time he had x-rays obtained which showed no acute fracture or foreign body and he was told to wash the area and given a topical antibiotic ointment. He states he has been following those directions but he has noticed some increased swelling pain and warmth and with concern for developing infection comes in for evaluation. Patient denies any fevers chills chest pain shortness of breath or history of immunosuppression [facility] Medical History Back pain no medical history Home Medications clindamycin HCl 300 mg capsule 300 mg PO 4X/DAY 10 days #40 caps 04/22/22 [Rx Last Taken Unknown] Allergy/AdvReac Type Severity Reaction Status Date / Time adhesive tape Allergy Rash Verified 04/22/22 21:43 sulfamethoxazole Allergy Rash Verified 04/22/22 21:43 [From Bactrim] trimethoprim [From Bactrim] Allergy Rash Verified 04/22/22 21:43 Surgical History Hx of lymph node excision Social History Smoking Status: Current some day smoker tobacco type: cigarettes ROS ROS ED Constitutional Constitutional ED: Denies chills or fever(s) ENT ENT ED: Denies sore throat Cardiovascular Cardiovascular: Denies chest pain Respiratory/Chest Respiratory/Chest: Denies cough or dyspnea Gastrointestinal Gastrointestinal: Denies abdominal pain, diarrhea, nausea or vomiting Genitourinary Genitourinary ED: Denies dysuria Musculoskeletal Musculoskeletal: Reports other Details: Positive left pinedo pain ; Denies myalgias Integumentary Reports Abrasions; Denies rash Neurologic Neurologic: Denies headache(s) Hematologic/Lymphatic Hematologic/Lymphatic: Denies easy bleeding or easy bruising EXAM Physical Exam Const Vital Signs: 04/22/22 21:43 Temperature 97.8 F Temperature Source Temporal Pulse Rate 78 Respiratory Rate 16 Blood Pressure 168/94 H Blood Pressure Mean 118 Pulse Ox 99 Oxygen Delivery Method Room Air Positive well nourished and well developed General Appearance ED: well developed Eyes PERRL and EOMs intact bilaterally Neck supple Resp normal respiratory effort and clear to auscultation bilaterally Cardio regular rate and regular rhythm Extremity Extremity Narrative: Patient has a circular 1 cm dermal layer skin avulsion to the anterior aspect of the left mid pinedo. There is granulation tissue present. No obvious foreign body. Extending out from the wound there is mild warmth soft tissue swelling and faint erythema concerning for developing secondary cellulitis. There is no lymphangitic streaking noted. No crepitance palpated. Negative Homans' sign bilaterally. Neuro oriented x3 and CN's II-XII intact bilaterally Sensorium / Orientation: alert Psych mental status grossly normal Skin Skin Narrative: Soft tissue changes to the left pinedo as documented above MDM MDM MDM Narrative Medical decision making narrative: Patient presented to the ER hypertensive but otherwise afebrile with stable vitals. He already underwent an x-ray secondary to his trauma which showed no fracture or foreign body and as there was no repeat trauma I felt no need to repeat this. He also does not report any history of diabetes or immunosuppression so therefore my concern for underlying infectious process such as osteomyelitis is low and do not feel there is need for repeat x-ray or laboratory studies. At this time based on the mild swelling warmth and redness I do feel he is developing a secondary cellulitis. Therefore he will stop using the topical ointment and be transition to an oral antibiotic for improved infection control. Otherwise as he does not show changes based on his vitals or labs for systemic infection he is otherwise safe for discharge. Discharge Plan Triage Chief Complaint: Wound ED Provider: Anuel Cohen Dx/Rx/DC Orders Clinical Impression: Cellulitis of left leg, Avulsion of skin of left lower leg Instructions: Cellulitis Dc, ED Skin Avulsion Prescriptions: New clindamycin HCl 300 mg capsule 300 mg PO 4X/DAY 10 Days Qty: 40 0RF Stand Alone Forms: ED Work / School Excuse Primary Care Provider: Care Physician,No Primary Referrals: Jessica Skelton DO [Med Staff - Acting Section Chief] - Care Physician,No Primary [Primary Care Provider] - Activity Restrictions/Additional Instructions: Please continue to wash your wound with soap and water but stop using the antibiotic ointment as we will be controlling the infection internally with oral antibiotics. Please make sure you are allowing your wound to least 4 hours a day of air exposure to help heal and return to the ER should you have any further concerns Disposition Disposition: Home, Self Care
[2022-04-22] MEDS: Clindamycin HCl 150 MG Capsule 300 MG PO (22:12)
== END 2022-04-22 22:22 | disposition home or self-care (01) ==
PROVIDERS: Emergency Provider Emergency Medicine; Visit Provider Emergency Medicine
DX: S81.812A Laceration without foreign body, left lower leg, initial encounter (principal); W22.09XA Striking against other stationary object, initial encounter; L03.116 Cellulitis of left lower limb; F17.210 Nicotine dependence, cigarettes, uncomplicated
CPT/HCPCS: 99283

== ENCOUNTER 2022-05-26 00:37 | Emergency (ER) | payer SELFPAY ==
[2022-05-26 00:39] VITALS: BP 156/86; PULSE 87; RESP 16; TEMP 36.9; O2SAT 99; BMI 20.7
--- NOTE | 2022-05-26 01:02 | EDS_ITS ---
HPI History of Present Illness Chief Complaint: Back Informant: patient Onset/Context/Timing Onset: Today and Hours (2) Context: Gradual Onset Timing: Continuous Quality: - (Like someone is punching me in my back) Location: Lumbar, Buttock, Right Leg and Left Leg Worsened by: improves with Nothing Relieved by: Nothing Associated Symptoms Associated Symptoms: Radiation to Right Leg and Radiation to Left Leg; Negative for Numbness, Tingling, Fever, Abdominal Pain, Dysuria, Unable to Ambulate, Unable to Transfer, Urinary Retention, Urinary Incontinence, Constipation or Fecal Incontinence Narrative Narrative: Patient presents with back pain that began approximately 2 hours prior to arrival. Patient states he was at the [place] [employer] when his pain began. Patient states it has been constant. Patient states he was sitting when the pain began. Patient states it feels like someone is punching him in his back. Patient states it is in his lower back and radiates down to both knees. Patient states nothing makes it better nothing makes it worse. Patient denies any bowel or bladder changes. Patient denies any saddle anesthesia. Patient denies any trauma or injury. Prior similar symptoms: No PFSH PFSH Medical History (Updated 05/26/22 @ 02:[address] Ra Leonard DO) Back pain Home Medications cyclobenzaprine 10 mg tablet 10 mg PO QHS PRN PRN Muscle Spasm #10 TABLETS 05/26/22 [Rx Last Taken Unknown] naproxen 500 mg tablet 500 mg PO BID PRN #20 tabs 05/26/22 [Rx Last Taken Unknown] Allergy/AdvReac Type Severity Reaction Status Date / Time adhesive tape Allergy Rash Verified 04/22/22 21:43 sulfamethoxazole Allergy Rash Verified 04/22/22 21:43 [From Bactrim] trimethoprim [From Bactrim] Allergy Rash Verified 04/22/22 21:43 Surgical History (Updated 05/26/22 @ 01:[address] Ra Leonard DO) Hx of cholecystectomy Hx of lymph node excision Social History Smoking Status: Current some day smoker tobacco type: cigarettes ROS ROS ED Constitutional Constitutional ED: Denies chills or fever(s) Eyes Eyes: Denies blurry vision or change in vision ENT ENT ED: Denies rhinorrhea or sore throat Cardiovascular Cardiovascular: Denies chest pain or palpitations Respiratory/Chest Respiratory/Chest: Denies cough or dyspnea Gastrointestinal Gastrointestinal: Reports nausea; Denies vomiting Genitourinary Genitourinary ED: Denies dysuria or hematuria Musculoskeletal Musculoskeletal: Reports back pain; Denies neck pain Integumentary Denies abscess or rash Neurologic Neurologic: Reports headache(s); Denies weakness Allergic/Immunologic Allergic/Immunologic ED: Denies mouth swelling or urticaria EXAM Physical Exam Const Vital Signs: 05/26/22 00:39 Temperature 98.5 F Temperature Source Oral Pulse Rate 87 Respiratory Rate 16 Blood Pressure 156/86 H Blood Pressure Mean 109 Pulse Ox 99 Oxygen Delivery Method Room Air Positive well nourished and well developed General Appearance ED: well developed and NAD HEENT Reports moist mucous membranes Neck supple and no JVD Back/Spine Back/Spine Narrative: There is tenderness and spasm over the lumbar paraspinal muscles. There is some mild midline tenderness. There is no bony crepitance or step-off. Range of motion was limited in all motions of the lumbar spine secondary to pain. Strength is 5/5 bilaterally. There are no sensory deficits noted. Deep tendon reflexes are 2+/4 bilaterally. Straight leg raises produce pain in his low back and hips but no radicular pain. Lumbar Spine / Lower Back: ROM limited and straight leg raise negative bilaterally Extremity normal to inspection General Extremety ED: Negative for edema or tenderness General Extremity: Negative for edema Neuro oriented x3 and no sensory deficits noted Sensorium / Orientation: alert Motor Exam: strength 5/5 throughout Deep Tendon Reflexes: Rt Patellar (L4): 2+, Lt Patellar (L4): 2+, Rt Ankle (S1): 2+ and Lt Ankle (S1): 2+ Deep Tendon Reflexes Back: Rt Patellar (L4): 2+, Lt Patellar (L4): 2+, Rt Ankle (S1): 2+ and Lt Ankle (S1): 2+ MDM MDM MDM Narrative Medical decision making narrative: Patient was given injections of Toradol and Norflex here. X-rays of the lumbar spine were obtained. There are 3 views. On my interpretation, there is no acute fracture or spondylolisthesis. Radiologist also interpreted the x-rays and agrees. Patient was given prescriptions for Naprosyn and Flexeril. Patient was instructed use ice to the area. Patient was instructed to follow-up with his primary care physician in 5 to 7 days. Patient understood and was agreeable with the plan. All questions were answered. Radiography Diagnostic Testing: Clinical Impression(s) from Imaging Studies Lumbar Spine X-Ray 05/26/22 01:38 IMPRESSION: No evidence of fracture or subluxation. Electronically Signed: Nadya Herrera MD at 2:09 EST , Discharge Plan Triage Chief Complaint: Back ED Provider: Ra Leonard Dx/Rx/DC Orders Clinical Impression: Lumbosacral strain, Tobacco abuse Instructions: ED Back Sprain/Strain Prescriptions: New cyclobenzaprine [cyclobenzaprine] 10 mg tablet 10 mg PO QHS PRN PRN (Reason: Muscle Spasm) Qty: 10 0RF naproxen 500 mg tablet 500 mg PO BID PRN Qty: 20 0RF Primary Care Provider: Care Physician,No Primary Referrals: Elke Hutton MD [Med Staff - Electronic Bench Technician] - 5-7 Days Care Physician,No Primary [Primary Care Provider] - Disposition Disposition: Home, Self Care
[2022-05-26] MEDS: Ketorolac 60 MG/2 ML Vial IM (01:15)
[2022-05-26] MEDS: Orphenadrine 60 MG/2 ML Ampul IM (01:16)
--- NOTE | 2022-05-26 01:38 | RAD_ITS ---
STUDY: X-RAY - LUMBAR SPINE REASON FOR EXAM: Male, 32 years old. Injury/Pain TECHNIQUE: 3 view(s) of the lumbar spine were obtained. COMPARISON: Lumbar spine x-rays 11/01/2021 FINDINGS: Vertebral bodies are normal in height. No definite fracture demonstrated. No subluxation. No paravertebral soft tissue mass identified. Surgical clips right upper abdomen cholecystectomy. RAD/Lumbar Spine 2 or 3 Views IMPRESSION: No evidence of fracture or subluxation. Electronically Signed: Nadya Herrera MD at 2:09 EST ,
== END 2022-05-26 02:31 | disposition home or self-care (01) ==
PROVIDERS: Emergency Provider Emergency Medicine; Visit Provider Emergency Medicine
DX: S39.012A Strain of muscle, fascia and tendon of lower back, initial encounter (principal); F17.210 Nicotine dependence, cigarettes, uncomplicated; X58.XXXA Exposure to other specified factors, initial encounter
CPT/HCPCS: 72100; 96372; 99282

== ENCOUNTER 2023-05-09 13:21 | Emergency (ER) | payer SELFPAY ==
[2023-05-09 13:23] VITALS: BP 140/88; PULSE 81; RESP 14; TEMP 36.6; O2SAT 98; BMI 20.7
--- NOTE | 2023-05-09 14:14 | ED.VIS.LOWEX ---
HPI History of Present Illness HPI Narrative: -33year-old male with atraumatic left knee pain. 3 years ago he was diagnosed with a left meniscal tear. He never had it surgically repaired. 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 He said he developed pain last night. Denies any fall injury or trauma. No fever. States last night and today it is swollen but it is better today. Patient is unable to bear weight on it. Chief Complaint: Lower Extremity Injury Informant: patient and spouse/S.O. Occured/Mechanism Mechanism/Context: No injury and No blunt trauma Onset/Context/Timing Onset: Today and Yesterday Current Severity: Mild Maximum Severity: Mild Associated Symptoms Associated Symptoms: Negative for Parasthesia, Weakness or Loss of Funtion Narrative Narrative: 33-year-old with prior history of left knee meniscal tear. Complaining of atraumatic knee pain and swelling that began last night. Unable to bear weight. No fever. No redness. No prior surgery to that knee. Prior similar symptoms: Yes Recent Illness/Hospitalization: No PFSH PFSH Medical History Back pain Home Medications hydrocodone-acetaminophen 5-325mg 5mg-325mg 1 tab PO Q4H PRN PRN Pain 3 days #10 TABLETS 05/09/23 [Rx Last Taken Unknown] Allergy/AdvReac Type Severity Reaction Status Date / Time adhesive tape Allergy Rash Verified 05/09/23 13:23 sulfamethoxazole Allergy Rash Verified 05/09/23 13:23 [From Bactrim] trimethoprim [From Bactrim] Allergy Rash Verified 05/09/23 13:23 Surgical History Hx of cholecystectomy Hx of lymph node excision Social History Smoking Status: Current some day smoker tobacco type: cigarettes ROS ROS ED ROS Narrative Denies recent illness. Review of Systems ROS Unobtainable: Denies due to encephalopathy Constitutional Constitutional ED: Denies chills or fever(s) Eyes Eyes: Denies blurry vision ENT ENT ED: Denies ear pain Cardiovascular Cardiovascular: Denies chest pain Respiratory/Chest Respiratory/Chest: Denies cough or dyspnea Gastrointestinal Gastrointestinal: Denies abdominal pain Genitourinary Genitourinary ED: Denies dysuria or hematuria Musculoskeletal Musculoskeletal: Denies arthralgias or back pain Integumentary Denies abscess or Abrasions Neurologic Neurologic: Denies headache(s) Psychiatric Psychiatric: Denies anxiety or depression Endocrine Endocrinology: Denies polydipsia or polyphagia Hematologic/Lymphatic Hematologic/Lymphatic: Denies easy bleeding or easy bruising Allergic/Immunologic Allergic/Immunologic ED: Denies mouth swelling or tongue swelling EXAM Physical Exam Narrative Exam Narrative: 3-year-old male vital signs stable afebrile. H EENT exam unremarkable. Lungs clear. Heart regular rhythm rate about 80. Abdomen soft nontender. Left knee mild swelling. Patient does not want to do flexion extension due to pain. I cannot evaluate his ACL, PCL, MCL and LCL due to his pain. There is no redness or cellulitis. Does not appear to be a septic joint. There does appear to be a small to moderate effusion. No gross bony deformity. Left hip nontender. No inguinal lymphadenopathy. Left foot and ankle are nontender. Neurovascular intact. Able to wiggle his toes. Normal dorsi plantarflexion. Normal DP pulse. Const Vital Signs: 05/09/23 13:23 Temperature 98 F Temperature Source Temporal Pulse Rate 81 Respiratory Rate 14 Blood Pressure 140/88 H Blood Pressure Mean 105 Pulse Ox 98 Oxygen Delivery Method Room Air Positive well nourished and well developed; Negative for obese, cachectic, contractures or unkempt General Appearance ED: well developed and NAD; Negative for unkempt, cachectic or contractures Nutritional Appearance: Negative for cachectic or obese HEENT Reports moist mucous membranes normocephalic and atraumatic; Negative for trauma or tenderness Eyes PERRL General Eye ED: Negative for other Neck full ROM and supple Thyroid: Negative for tender Lymph Lymphatic: Negative for other Chest Wall inspection of chest normal and palpation of chest normal Chest: Negative for other Resp normal respiratory effort, no retractions and clear to auscultation bilaterally Effort and Inspection: Negative for pain with movement Auscultation: Negative for rales, rhonchi or wheezes Cardio regular rate, regular rhythm, S1 normal heart sound, S2 normal heart sound and no murmurs Rate: Negative for bradycardia or tachycardic Rhythm: Negative for abnormal rhythm Bruits: Negative for other GI non-tender, non-distended and no masses Inspection: Negative for abdominal distention Auscultation: normoactive bowel sounds Palpation: soft; Negative for tender or guarding Back/Spine no CVA tenderness Lumbar Spine / Lower Back: Negative for lumbar spinal tenderness Extremity normal to inspection and full ROM Extremity Narrative: Left knee. Tender. Mild swelling. Small to moderate effusion. No redness. No warmth. No cellulitis. Does not appear to be a septic joint. Limited flexion extension due to pain. I cannot do a full exam of his ligaments due to his pain. Left foot neurovascular intact with palpable DP pulse. Unable to bear weight due to pain. General Extremety ED: Yes weight-bearing difficulty; Negative for cyanosis or edema General Extremity: weight-bearing difficulty; Negative for cyanosis or edema Neuro oriented x3, CN's II-XII intact bilaterally and moves all extremities Sensorium / Orientation: alert, oriented to person, oriented to place and oriented to time; Negative for orientation impaired, confused, lethargic or stuporous Motor Exam: strength 5/5 throughout Psych mental status grossly normal Appearance: Negative for unkempt Speech: No other Mood & Affect: Negative for anxious Skin no wounds Lesions: no lesions Rashes: no rashes Trauma: Negative for abrasion or laceration MDM MDM MDM Narrative Medical decision making narrative: 33-year-old atraumatic knee pain with a history of a prior meniscal tear 3 years ago that he never had surgically repaired. This could be an aggravation of that. X-ray being obtained. He will be given 2 [place] for pain. Does not appear to be septic joint. I do not think he needs labs. Repeat exam patient is doing better with the pain medication. He will be discharged home. Limited Vicodin 10 no refill for pain otherwise Motrin and ice. And outpatient follow-up with orthopedics. He has seen with orthopedics for in the past and be referred to see them as needed. History & Record Review Discussion w/independent historian: Patient and Family Additional record(s) reviewed:: Prior inpatient record, Prior outpatient record, Prior ED visit and Prior labs Radiography Diagnostic Testing: Clinical Impression(s) from Imaging Studies Knee X-Ray 05/09/23 14:20 IMPRESSION: Stable examination. Electronically Signed: Manuel Emery MD at 14:48 EDT , Knee x-ray 4 views. Shows no acute abnormality. No fracture. No dislocation. No significant fluid collection. Interpreted both by myself and the radiologist. Discharge Plan Triage Chief Complaint: Lower Extremity Injury ED Provider: Zhou Myrick Dx/Rx/DC Orders Clinical Impression: Acute knee pain, History of meniscal tear Instructions: Knee Pain Prescriptions: New hydrocodone-acetaminophen 5-325 mg tablet 1 tab PO Q4H PRN PRN (Reason: Pain) 3 Days Qty: 10 0RF Primary Care Provider: Care Physician,No Primary Referrals: Lux Kilgore DO [Med Staff - Active Staff] - 1 Week if not improving Care Physician,No Primary [Primary Care Provider] - Activity Restrictions/Additional Instructions: Ice and elevate your knee to decrease pain and swelling. Motrin or ibuprofen for pain and swelling. [place] for more severe pain. Follow-up with the orthopedic doctor if you are not improving for further evaluation this may be an exacerbation of your prior meniscal tear. The ER if you develop a fever or redness around the knee. Disposition Disposition: Home, Self Care
--- NOTE | 2023-05-09 14:20 | RAD_ITS ---
STUDY: X-RAY - LEFT KNEE REASON FOR EXAM: Male, 33 years old. Atraumatic pain TECHNIQUE: 4 view(s) of the knee. COMPARISON: Comparison is made with prior study dated April 15, 2022. FINDINGS: Stable 1.5 cm x 1.2 cm partially calcified density in the distal femoral shaft suggestive of a calcified chondroid lesion. Normal visualized proximal tibia and fibula. Normal proximal tibiofibular articulation. Normal medial femorotibial compartment. Normal lateral femorotibial compartment. Normal patellofemoral articulation. The soft tissue structures are unremarkable. RAD/Knee 4 or More Views IMPRESSION: Stable examination. Electronically Signed: Manuel Emery MD at 14:48 EDT ,
[2023-05-09] MEDS: HYDROcodone Bitartrate/Apap 5/325 Tablet PO (14:27)
== END 2023-05-09 15:36 | disposition home or self-care (01) ==
PROVIDERS: Emergency Provider Emergency Medicine; Visit Provider Emergency Medicine
DX: M25.562 Pain in left knee (principal); F17.210 Nicotine dependence, cigarettes, uncomplicated
CPT/HCPCS: 73564; 99283

== ENCOUNTER 2023-06-01 22:03 | Emergency (ER) | payer SELFPAY ==
[2023-06-01 22:04] VITALS: BP 150/94; PULSE 101; RESP 17; TEMP 36.4; O2SAT 98; BMI 20.9
--- NOTE | 2023-06-01 22:44 | EDS_ITS ---
HPI History of Present Illness Chief Complaint: Upper Extremity Injury Informant: patient Narrative Narrative: Spontaneous onset today for the past 7 hours or so of painful redness and swelling in the right elbow. He is right-hand dominant. He does not often rest his elbow on solid surfaces. He denies any injury. No foreign body. He does do repetitive motions, he works at [email or web address] and often is doing various things but not the same thing every time. 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 Never had this before. No history of gout that he knows of. No systemic symptoms or fevers. [facility] Medical History Back pain Home Medications hydrocodone-acetaminophen 5-325mg 5mg-325mg 1 tab PO Q4H PRN PRN Pain 3 days #10 TABLETS 05/09/23 [Rx Last Taken Unknown] cephalexin 500 mg capsule 500 mg PO Q6 #40 CAPSULES 06/01/23 [Rx Last Taken Unknown] naproxen 500 mg tablet 500 mg PO BID PRN #14 tabs 06/01/23 [Rx Last Taken Unknown] Allergy/AdvReac Type Severity Reaction Status Date / Time adhesive tape Allergy Rash Verified 06/01/23 22:03 sulfamethoxazole Allergy Rash Verified 06/01/23 22:03 [From Bactrim] trimethoprim [From Bactrim] Allergy Rash Verified 06/01/23 22:03 Surgical History Hx of cholecystectomy Hx of lymph node excision Social History Smoking Status: Current every day smoker tobacco type: cigarettes ROS ROS ED Constitutional Constitutional ED: Denies chills or fever(s) Musculoskeletal Musculoskeletal: Reports extremity pain; Denies neck pain Integumentary Denies Abrasions, rash or wounds Neurologic Neurologic: Denies paresthesias or weakness EXAM Physical Exam Const Vital Signs: 06/01/23 22:04 Temperature 97.6 F L Temperature Source Temporal Pulse Rate 101 H Respiratory Rate 17 Blood Pressure 150/94 H Blood Pressure Mean 112 Pulse Ox 98 Oxygen Delivery Method Room Air Positive well nourished and well developed General Appearance ED: well developed and NAD Neck full ROM and supple Back/Spine normal ROM and normal to inspection Extremity full ROM Extremity Narrative: Right olecranon there is blanching erythema that is tender and it is diffusely swollen. In palpating it, the bursa does not feel fluctuant as if there is fluid to drain. There is no abscess or pointing or any other nidus for infection. There is no lymphangitis or other areas that are affected. It hurts to fully extend, he is able, all other movements are relatively painless. Neuro oriented x3, no focal motor deficits and no sensory deficits noted Sensorium / Orientation: alert Psych mental status grossly normal and thought process normal Skin no wounds Rashes: no rashes MDM MDM MDM Narrative Medical decision making narrative: This looks like an early olecranon bursitis. I am going to err on the side of caution and treat him for infection although inflammatory causes and gout are also in the differential diagnosis. However, it would be difficult to prove or disprove any of these since I do not have any fluid that I am able to withdraw, based on my clinical evaluation of this. Follow-up advised. Discharge Plan Triage Chief Complaint: Upper Extremity Injury ED Provider: Gato Álvarez Dx/Rx/DC Orders Clinical Impression: Olecranon bursitis of right elbow Instructions: ED Bursitis Elbow Olecranon Prescriptions: New cephalexin [cephalexin] 500 mg capsule 500 mg PO Q6 Qty: 40 0RF naproxen 500 mg tablet 500 mg PO BID PRN Qty: 14 0RF No Action hydrocodone-acetaminophen 5-325 mg tablet 1 tab PO Q4H PRN PRN (Reason: Pain) 3 Days Qty: 10 0RF Stand Alone Forms: ED Work / School Excuse Primary Care Provider: Care Physician,No Primary Referrals: Everett Willis MD [Med Staff - Active Staff] - 3-5 Days if not improving Disposition Disposition: Home, Self Care
[2023-06-01] MEDS: Naproxen 250 MG Tablet 500 MG PO (23:05)
[2023-06-01] MEDS: Cephalexin 250 MG Capsule 500 MG PO (23:05)
== END 2023-06-01 23:10 | disposition home or self-care (01) ==
PROVIDERS: Emergency Provider Emergency Medicine; Visit Provider Emergency Medicine
DX: M70.21 Olecranon bursitis, right elbow (principal); F17.210 Nicotine dependence, cigarettes, uncomplicated
CPT/HCPCS: 99283

== ENCOUNTER 2023-06-05 12:09 | Emergency (ER) | payer SELFPAY ==
[2023-06-05 12:10] VITALS: BP 128/86; PULSE 88; RESP 16; TEMP 36.3; O2SAT 99; BMI 21.0
--- NOTE | 2023-06-05 13:05 | EDS_ITS ---
HPI History of Present Illness Chief Complaint: Eye Problem Detail of Chief Complaint: Left eye pain after walking into a rack at a local store. Informant: patient and family Onset/Context/Timing Location: Left Eye Onset: Today Context: Sudden Onset Timing: Continuous Current Severity: Mild Maximum Severity: Mild Associated Symptoms Associated Symptoms - Eyes: Pain and Redness History of injury: Yes and Direct trauma Visual correction: Glasses Narrative Narrative: 33-year-old male was at an [facility]. He walked into a rack and injured his left eye. This occurred about 2 hours ago. Patient wears glasses. No contacts. No significant prior eye surgery. Prior similar symptoms: No Recent Illness/Hospitalization: No PFSH PFSH Medical History Back pain Home Medications hydrocodone-acetaminophen 5-325mg 5mg-325mg 1 tab PO Q4H PRN PRN Pain 3 days #10 TABLETS 05/09/23 [Rx Last Taken Unknown] cephalexin 500 mg capsule 500 mg PO Q6 #40 CAPSULES 06/01/23 [Rx Last Taken Unknown] naproxen 500 mg tablet 500 mg PO BID PRN #14 tabs 06/01/23 [Rx Last Taken Unknown] Allergy/AdvReac Type Severity Reaction Status Date / Time adhesive tape Allergy Rash Verified 06/05/23 12:11 sulfamethoxazole Allergy Rash Verified 06/05/23 12:11 [From Bactrim] trimethoprim [From Bactrim] Allergy Rash Verified 06/05/23 12:11 Surgical History Hx of cholecystectomy Hx of lymph node excision Social History Smoking Status: Current every day smoker tobacco type: cigarettes ROS ROS ED ROS Narrative Denies recent illness. Review of Systems ROS Unobtainable: Denies due to encephalopathy Constitutional Constitutional ED: Denies chills or fever(s) Eyes Eyes: Denies blurry vision, change in vision or diplopia ENT ENT ED: Denies ear pain Cardiovascular Cardiovascular: Denies chest pain Respiratory/Chest Respiratory/Chest: Denies cough Gastrointestinal Gastrointestinal: Denies abdominal pain Genitourinary Genitourinary ED: Denies dysuria or hematuria Musculoskeletal Musculoskeletal: Denies arthralgias Integumentary Denies abscess or Abrasions Neurologic Neurologic: Denies headache(s) Psychiatric Psychiatric: Denies anxiety or depression Endocrine Endocrinology: Denies polydipsia Hematologic/Lymphatic Hematologic/Lymphatic: Denies easy bleeding or easy bruising Allergic/Immunologic Allergic/Immunologic ED: Denies mouth swelling or tongue swelling EXAM Physical Exam Narrative Exam Narrative: 33-year-old male. Vital signs are stable afebrile. H EENT exam pupils round react light his motions are intact. 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 Left eye on the sclera laterally about 3:00 there is redness consistent with a broken blood vessel. Globe is intact. Upper and lower eyelids are unremarkable. No swelling or injury. Tetracaine was instilled in his left eye with good pain relief. Fluorescein stain. Slit-lamp showed corneal abrasion at about 3:00 on the white of the eye. Did not involve the pupil or the part of the eye. Eyes exam unremarkable. Const Vital Signs: 06/05/23 12:10 Temperature 97.4 F L Temperature Source Temporal Pulse Rate 88 Respiratory Rate 16 Blood Pressure 128/86 H Blood Pressure Mean 100 Pulse Ox 99 Oxygen Delivery Method Room Air Positive well nourished and well developed; Negative for obese, cachectic or unkempt General Appearance ED: well developed and NAD; Negative for unkempt or cachectic Nutritional Appearance: Negative for cachectic or obese HEENT Denies other HEENT Narrative: Left eye. Redness laterally on the sclera at about 3:00. Does not view of the pupil or the colored part of the eye. trauma; Negative for other Neck no lymphadenopathy, supple and no JVD General: Negative for tenderness Resp normal respiratory effort, no retractions, no use of accessory muscles and clear to auscultation bilaterally Cardio regular rate, regular rhythm, S1 normal heart sound, S2 normal heart sound and no murmurs GI non-tender, non-distended and no masses Inspection: Negative for other Auscultation: normoactive bowel sounds Palpation: Negative for soft Back/Spine no CVA tenderness General Back: Negative for CVA tenderness or other Extremity normal to inspection General Extremety ED: Negative for edema or other findings General Extremity: Negative for edema or other findings Neuro oriented x3, CN's II-XII intact bilaterally and moves all extremities Sensorium / Orientation: alert, oriented to person, oriented to place and oriented to time Motor Exam: strength 5/5 throughout Psych Appearance: Negative for unkempt Attitude: No agitated Mood & Affect: Negative for depressed, anxious or tearful Skin no wounds Lesions: no lesions Rashes: no rashes Image ED - Eye Diagram: 1. Left eye corneal abrasion at 3:00 on the sclera. No foreign body. MDM MDM MDM Narrative Medical decision making narrative: 33-year-old male trauma nose left eye causing a corneal abrasion. Bacitracin ophthalmic ointment twice a day. Tetracaine eyedrops for the next 24 hours. Follow-up with ophthalmology as needed. History & Record Review Discussion w/independent historian: Patient and Family Discharge Plan Triage Chief Complaint: Eye Problem ED Provider: Zhou Myrick Dx/Rx/DC Orders Clinical Impression: Corneal abrasion Instructions: ED Corneal Abrasion Prescriptions: No Action cephalexin [cephalexin] 500 mg capsule 500 mg PO Q6 Qty: 40 0RF naproxen 500 mg tablet 500 mg PO BID PRN Qty: 14 0RF hydrocodone-acetaminophen 5-325 mg tablet 1 tab PO Q4H PRN PRN (Reason: Pain) 3 Days Qty: 10 0RF Primary Care Provider: Care Physician,No Primary Referrals: Nacho Medina MD [Med Staff - Active Staff] - 3-5 Days if not improving Care Physician,No Primary [Primary Care Provider] - Activity Restrictions/Additional Instructions: You may use the eyedrops for pain for the next 24 hours. After 24 hours stop using them because they retard healing. Eye ointment to prevent infection and to help the eye slide easily. Follow-up with eye doctor if not improving. Treatment Tylenol for pain. Sunglasses to prevent glare.
[2023-06-05] MEDS: Neomycin/Bacitracin/Polymyxin Opth. Ointment 1 APPLIC LEFT EYE (13:30)
[2023-06-05] MEDS: Tetracaine 0.5% Ophthalmic Bottle 1 DRP LEFT EYE (13:31)
[2023-06-05] MEDS: Fluorescein 1 MG STRIP 1 STRIP LEFT EYE (13:31)
== END 2023-06-05 13:35 | disposition home or self-care (01) ==
LOC: ED 13:10
PROVIDERS: Emergency Provider Emergency Medicine; Visit Provider Emergency Medicine
DX: S05.02XA Injury of conjunctiva and corneal abrasion without foreign body, left eye, initial encounter (principal); F17.210 Nicotine dependence, cigarettes, uncomplicated; Y92.512 Supermarket, store or market as the place of occurrence of the external cause; X58.XXXA Exposure to other specified factors, initial encounter
CPT/HCPCS: 99283

== ENCOUNTER 2023-07-29 08:59 | Emergency (ER) | payer MEDICAID, SELFPAY ==
[2023-07-29 09:00] VITALS: BP 130/84; PULSE 57; RESP 16; TEMP 36.1; O2SAT 100; BMI 21.4
--- NOTE | 2023-07-29 09:15 | RAD_ITS ---
STUDY: X-RAY - RIGHT ELBOW REASON FOR EXAM: Male, 33 years old. Swelling, pain. TECHNIQUE: 3 views of the right elbow. COMPARISON: None. FINDINGS: Normal visualized humerus, radius and ulna. Normal radiocapitellar and ulnotrochlear articulations. The soft tissue structures are unremarkable. There is no demonstrated fracture. RAD/Elbow min 3 Views IMPRESSION: Normal x-ray examination of the right elbow. Electronically Signed: Nii Jeter MD at 9:44 EST ,
--- NOTE | 2023-07-29 09:29 | EDS_ITS ---
HPI History of Present Illness Chief Complaint: Upper Extremity Injury Informant: patient Narrative Narrative: 33-year-old male presenting to the emergency room with a chief complaint of painful right elbow. Patient was seen about 2 months ago with some redness and pain of the right elbow. Still possibly to be a bursitis of undifferentiated etiology. There is no significant swelling at that time. In the 2 months since the patient states that it is now swollen and more painful. He states that it is making me sick . By this he states it is making him vomit and have diarrhea. He states he lost his paperwork to know who to follow-up with. He denies any fever. No IVDU. He denies any known trauma. No known breaks in the skin [facility] Medical History Back pain Home Medications hydrocodone-acetaminophen 5-325mg 5mg-325mg 1 tab PO Q4H PRN PRN Pain 3 days #10 TABLETS 05/09/23 [Rx Last Taken Unknown] cephalexin 500 mg capsule 500 mg PO Q6 #40 CAPSULES 06/01/23 [Rx Last Taken Unknown] naproxen 500 mg tablet 500 mg PO BID PRN #14 tabs 06/01/23 [Rx Last Taken Unkno wn] cephalexin 500 mg capsule 500 mg PO Q6 #28 CAPSULES 07/29/23 [Rx Last Taken Unknown] hydrocodone-acetaminophen 5-325mg 5mg-325mg 1 tab PO Q6H PRN PRN Pain 3 days #12 TABLETS 07/29/23 [Rx Last Taken Unknown] naproxen 500 mg tablet 500 mg PO BID #14 tabs 07/29/23 [Rx Last Taken Unknown] Allergy/AdvReac Type Severity Reaction Status Date / Time adhesive tape Allergy Rash Verified 07/29/23 09:00 sulfamethoxazole Allergy Rash Verified 07/29/23 09:00 [From Bactrim] trimethoprim [From Bactrim] Allergy Rash Verified 07/29/23 09:00 Surgical History Hx of cholecystectomy Hx of lymph node excision Social History Smoking Status: Current every day smoker tobacco type: cigarettes ROS ROS ED Constitutional Constitutional ED: Denies chills, fever(s) or weight loss Eyes Eyes: Denies change in vision or diplopia ENT ENT ED: Denies ear pain, rhinorrhea or sore throat Cardiovascular Cardiovascular: Denies chest pain, orthopnea, palpitations or racing heartbeat Respiratory/Chest Respiratory/Chest: Denies cough, dyspnea or orthopnea Gastrointestinal Gastrointestinal: Reports diarrhea, nausea and vomiting; Denies abdominal pain Genitourinary Genitourinary ED: Denies dysuria, hematuria or urinary frequency Musculoskeletal Musculoskeletal: Reports other Details: Painful swollen red right elbow ; Denies arthralgias or myalgias Integumentary Denies abscess or rash Neurologic Neurologic: Denies headache(s) or weakness Psychiatric Psychiatric: Denies anxiety, depression, suicidal ideation or suicidal thoughts Endocrine Endocrinology: Denies polydipsia, polyphagia or polyuria Allergic/Immunologic Allergic/Immunologic ED: Denies mouth swelling, tongue swelling or urticaria EXAM Physical Exam Const Vital Signs: 07/29/23 09:00 Temperature 97.0 F L Temperature Source Temporal Pulse Rate 57 L Respiratory Rate 16 Blood Pressure 130/84 H Blood Pressure Mean 99 Pulse Ox 100 Oxygen Delivery Method Room Air Positive well nourished and well developed General Appearance ED: well developed HEENT Reports normocephalic, head/scalp atraumatic and moist mucous membranes Eyes PERRL and EOMs intact bilaterally Neck no lymphadenopathy, supple and no JVD Resp normal respiratory effort and clear to auscultation bilaterally Cardio regular rate, regular rhythm and no murmurs GI normal to inspection, nondistended, normoactive bowel sounds and non-tender Palpation: soft Back/Spine no CVA tenderness and normal ROM Extremity General Extremety ED: Yes other findings General Extremity: other findings Other Details: The right elbow demonstrates focal swelling over the olecranon area. There is some erythema and increased warmth. Tender to palpation. No obvious breaks in the skin. No lymphangitic streaking. He is able to range the elbow but gets painful at the extremes of flexion. Neuro oriented x3 and CN's II-XII intact bilaterally Sensorium / Orientation: alert Motor Exam: strength 5/5 throughout Psych mental status grossly normal Mood & Affect: Negative for depressed or tearful Skin no rashes or lesions noted and no wounds MDM MDM MDM Narrative Medical decision making narrative: My independent interpretation of the plain films of the right elbow is no acute fracture. Patient provided informed consent for needle aspiration. The elbow was washed with Betadine and allowed to dry. The elbow was draped with sterile towels. Sterile ultrasound probe was used to identify the bursa. Special attempt was made to avoid going through an erythematous area. Therefore more of a medial approach was made. Identification of arteries/arterials in the region was made. 1% lidocaine 3 cc was used to raise a wheal in the skin. A 21-gauge needle was then used to aspirate 5 cc of straw-colored fluid. There was a small amount of blood in the fluid presumably from aspiration. Band-Aid was applied Betadine was washed and compressive Mynor wrap was placed. The synovial fluid was sent does not demonstrate any crystals. Will be sent for culture as well. White count at 6000. I discussed with the patient at length. I do not believe that this is infectious but using shared decision making we will go ahead and place him on Keflex. I think some anti-inflammatories would be beneficial and I will write for scheduled naproxen. I can also write for some narcotic pain medication. Continued use of Mynor wrap. I highly encouraged orthopedic follow-up. I could not stress this enough and gave him specific name and number with instructions to follow-up as soon as possible. Discharge Plan Triage Chief Complaint: Upper Extremity Injury ED Provider: Castro Meeks Dx/Rx/DC Orders Clinical Impression: Olecranon bursitis of right elbow, Elbow pain, right Instructions: ED Bursitis Elbow Olecranon Prescriptions: New cephalexin [cephalexin] 500 mg capsule 500 mg PO Q6 Qty: 28 0RF naproxen 500 mg tablet 500 mg PO BID Qty: 14 0RF hydrocodone-acetaminophen [hydrocodone-acetaminophen] 5-325 mg tablet 1 tab PO Q6H PRN PRN (Reason: Pain) 3 Days Qty: 12 0RF No Action cephalexin [cephalexin] 500 mg capsule 500 mg PO Q6 Qty: 40 0RF naproxen 500 mg tablet 500 mg PO BID PRN Qty: 14 0RF hydrocodone-acetaminophen 5-325 mg tablet 1 tab PO Q4H PRN PRN (Reason: Pain) 3 Days Qty: 10 0RF Primary Care Provider: Care Physician,No Primary Referrals: Denver Woo DO [Med Staff - Active Staff] - As soon as possible Care Physician,No Primary [Primary Care Provider] - Disposition Disposition: Home, Self Care
[2023-07-29] MEDS: Lidocaine 1% (20 ml mdv) 20 ML Vial 5 ML INFILT (09:30)
[2023-07-29 10:42] LABS: AUTO B FLUID DILUENT BKGD CT WBC <0.1 RBC <0.01 (W<.1,R<.01); CRYSTALS, BODY FLUID NO CRYSTALS SEEN; Source- Body Fluid SYNOVIAL
[2023-07-29 10:43] LABS: Appearance /Synovial Fluid Clear (CLEAR); Color / Synovial Fluid Yellow (Pale Yellow); RBC /Synovial Fluid 0.005 10^6/uL (0); Source / Synovial Fluid ELBOW; Synovial Fld Mononuclear WBC # 1.522 10^3/ul; Synovial Fld Mononuclear WBC % 24.5 %; Synovial Fld Polynuclear WBC # 4.682 10^3/uL; Synovial Fld Polynuclear WBC % 75.5 %; Viscosity / Synovial Fluid Sl. Viscous (HIGH)
[2023-07-29 11:05] LABS: Lymph 10 %; Monocyte /Synovial Fluid 1 %; Neutrophil 89 % (0-25)
[2023-07-29 11:08] LABS: Body Fluid QC Type(s) BF1Q,BF2Q
--- OUTSIDE RECORDS SUMMARY | 2023-07-29 11:34 | XMS RPT_ITS | CCD ---
Author Name Unknown Address [address] [place] [address] Organization [facility] Care Team Providers Care Network Security Architect Name Role Phone RIDER, MARZENA Lepe Unavailable Unavailable TOMI, BHARGAVI A. Unavailable Unavailable TOMI, BHARGAVI A. Unavailable Unavailable Unavailable Primary Care Provider Unavailcourtney garcia PHYSICIAN, NONE Primary Care Physician Unavailab Sunday Guyee Geovanny Primary Care Provider Unavailable Primary Care Provider UnavailRABIA Davison Attending Unavailable CRISTINA LANGLEY Referring Unavailable ANAYA AVILA Referring Unavailable TOMI, BHARGAVI GEOVANNY Primary Care Unavailable CRISTINA LANGLEY Attending Unavailable TOMI, BHARGAVI GEOVANNY Primary Care Unavailable TOMI BHARGAVI GEOVANNY Primary Care Unavailable PCP, DO None Primary Care Provider Unavailcourtney Bashir MD, MD [facility] Emergency Provider [phone] CELIO AGUILERA Referring Unavailable CELIO AGUILERA Attending Unavailable JORGE L CASEY Attending Unavailable CELIO AGUILERA Referring Unavailable CELIO AGUILERA Attending Unavailable CELIO AGUILERA Primary Care Unavailable MINDI PUENTES Attending Unavailable CELIO AGUILERA Primary Care Unavailable SHELLEY WEISS Attending Unavailable LILIBETH NEW Attending UnavailSHELLEY Qureshi CNP Referring Unavailable Shelley Weiss CNP Care Team Information Receiv er Shelley Weiss CNP Care Team Information Receiv er LILIBETH NEW Attending Provider DOCTOR, NO FAMILY Primary Care Provider Unavaila ble LILIBETH NEW Attending Unavailable LILIBETH NEW Primary Care Unavailable JODY LY Attending Unavailable MD CELIO AGUILERA MD Primary Care Provider MD Analia Taylor MD Emergency Provider [phone] ROSIE DIGITAL CAMPAIGN SPECIALIST, TYLYN R Attending Unavailable ROSIE DIGITAL CAMPAIGN SPECIALIST, TYLYN R Referring Unavailable PCP, None Primary Care Unavailable CELIO AGUILERA Attending Unavailable ROSIE DIGITAL CAMPAIGN SPECIALISTMINDI R Attending Unavailable PCP, None Primary Care Unavailable CELIO AGUILERA Primary Care Unavailable Analia Taylor MD Attending Unavailable PCP, None Primary Care Unavailable Mart Bsahir MD Attending Unavailable Allergies Allergy Classification Reported Allergen(s) Allergy Type Date of Onset Reaction(s) Facility (8 sources) Sulfamethoxazole / Trimethoprim; Translations: [sulfamethoxazole-tr imethoprim] Drug Allergy 02-24-20 19 [facility] (1 source) Bee/Wasp/Ant venom Allergy to substance [facility] (1 source) Tape, plastic Allergy to substance [facility] (3 sources) Sulfamethoxazole Drug Allergy 07-15-19 23 [facility] Work Phone: (3 sources) Trimethoprim Drug Allergy 07-15-19 23 [facility] Work Phone: (4 sources) Sulfamethoxazole / Trimethoprim Drug Allergy [facility] Work Phone: (1 source) Sulfamethoxazole Drug Allergy 07-15-19 23 [facility] (1 source) Trimethoprim Drug Allergy 07-15-19 [facility] Medications Current Medications Medication Drug Class(es) Dates Sig (Normalized) Sig (Original) meloxicam 7.5 mg oral tablet (3 sources) Nonsteroidal Anti-inflammatory Drug Start: 07-15-2022 take 1 tablet by mouth twice daily Meloxicam (Mobic) 7.5 MG Tablet Active 7.5 MG PO Twice Daily July 15, 2022 1:00am naproxen 500 mg oral tablet (1 source) Nonsteroidal Anti-inflammatory Drug Start: 05-17-2021 take 1 tablet by mouth twice daily naproxen (NAPROSYN) 500 MG tablet Take 1 tablet by mouth 2 times daily 20 tablet 0 05/17/2021 Active Completed/Discontinued Medications Medication Drug Class(es) Dates Sig (Normalized) Sig (Original) acetaminophen 325 mg oral capsule (4 sources) acetaminophen 32 5 mg cap Take by mouth. 0 Active Problems Active Problems Problem Classification Problem Date Documented Date Episodic/Chronic Anxiety disorders (2 sources) Anxiety disorder, unspecified; Translations: [Anxiety disorder, unspecified] Onset: 08-20-2022 Chronic Asthma (1 source) Asthma 12-03-2013 Chronic Esophageal disorders (1 source) Gastroesophageal reflux disease Onset: 07-08-2010 12-03-2013 Chronic Essential hypertension (1 source) Essential (primary) hypertension; Translations: [Essential (primary) hypertension] Onset: 07-18-2022 Chronic Headache; including migraine (1 source) Migraine; Translations: [Migraine, unspecified, not intractable, without status migrainosus] Chronic Lymphadenitis (1 source) Axillary lymphadenopathy 02-24-2016 Episodic Past or Other Problems Problem Classification Problem Date Documented Da te Episodic/Chronic Hepatitis (1 source) Type B viral hepatitis Onset: 07-08-2006 12-03-2013 Episodic Other connective tissue disease (1 source) Muscle weakness (generalized); Translations: [MUSCLE WEAKNESS (GENERALIZED)] Onset: 10-16-2022 Episodic Other nervous system disorders (2 sources) Tremor, unspecified; Translations: [Tremor, unspecified] Onset: 08-20-2022 Episodic Other non-traumatic joint disorders (2 sources) Pain in left shoulder; Translations: [Pain in left shoulder] Onset: 10-02-2022 Episodic Other non-traumatic joint disorders (1 source) Stiffness of left shoulder, not elsewhere classified; Translations: [STIFFNESS OF LEFT SHOULDER, NOT ELSEWHERE CLASSIFIED] Onset: 10-16-2022 Episodic Unclassified (1 source) ALLERGIC REACTION/BEE STING Onset: 01-09-2017 Unclassified (1 source) Exposure to 2019 novel coronavirus; Translations: [Contact with and (suspected) exposure to COVID19] Onset: 05-26-2021 Viral infection (1 source) Viral infection, unspecified; Translations: [Viral syndrome] Onset: 06-14-2021 Episodic Results Test Name Value Interpretation Reference Range Facil ity Vital Signs Date Time Vital Sign Value Performing Clinician Facility 01-15-2023 21:14-0400 Body temperature 97.6 [degF] MD CELIO AGUILERA MD Work Phone: [facility] Work Phone: 01-15-2023 21:14-0400 Diastolic blood pressure 64 mm[Hg] MD CELIO AGUILERA MD Work Phone: [facility] Work Phone: 01-15-2023 21:14-0400 Heart rate 57 /min MD CELIO AGUILERA MD Work Phone: [facility] Work Phone: 01-15-2023 21:14-0400 Respiratory rate 16 /min MD CELIO AGUILERA MD Work Phone: [facility] Work Phone: 01-15-2023 21:14-0400 SaO2% (BldA) [Mass fraction] 99 % MD CELIO AGUILERA MD Work Phone: [facility] Work Phone: 01-15-2023 21:14-0400 Systolic blood pressure 118 mm[Hg] MD CELIO AGUILERA MD Work Phone: [facility] Work Phone: 01-15-2023 18:36-0400 Body height 175.26 cm MD CELIO AGUILERA MD Work Phone: [facility] Work Phone: 01-15-2023 18:36-0400 Body mass index (BMI) [Ratio] 20.2 kg/m2 MD CELIO AGUILERA MD Work Phone: [facility] Work Phone: 01-15-2023 18:36-0400 Body weight 62.1 kg MD CELIO AGUILERA MD Work Phone: [facility] Work Phone: 01-04-2023 09:58-0400 Body height 175.26 cm Shelley Weiss CNP Work Phone: [facility] Work Phone: Encounters Encounter Date Encounter Type Care Provider Facility Start: 01-15-2023 End: 01-16-2023 Emergency department patient visit CELIO WILLY Facility[facility] Start: 01-15-2023 End: 01-15-2023 Emergency department patient visit MD CELIO AGUILERA MD Work Phone: [facility] Start: 01-04-2023 Office outpatient visit 15 minutes LILIBETH ENW M.D. Work Phone: [facility] Work Phone: Start: 12-26-2022 End: 12-26-2022 ambulatory LILIBETH NEW Facility:[facility] Start: 12-26-2022 Evaluation and management of inpatient JODY [facility] Start: 12-26-2022 End: 12-26-2022 ambulatory NO FAMILY DOCTOR [facility] Work Phone: Start: 12-26-2022 End: 12-26-2022 Patient encounter procedure NO DOCTOR [facility] Cardiopulmonary Ther Start: 11-19-2022 Office outpatient ne w 30 minutes LILIBETH NEW M.D. Work Phone: [facility] Work Phone: Start: 11-08-2022 ambulatory LILIBETH NEW [facility] Start: 11-05-2022 End: 11-05-2022 ambulatory [facility] Start: 10-16-2022 End: 11-12-2022 ambulatory MINDI PUENTES NP [facility] Start: 10-02-2022 End: 10-02-2022 ambulatory [facility] Start: 08-20-2022 End: 08-20-2022 ambulatory CELIO SNOWSHOE [facility] Start: 08-20-2022 End: 08-20-2022 ambulatory [facility] Start: 08-01-2022 ambulatory CELIO [facility] Start: 07-18-2022 End: 07-18-2022 ambulatory JORGE L CASEY [facility] Start: 07-15-2022 End: 07-15-2022 Emergency department patient visit None PCP Facility:[facility] Start: 07-15-2022 End: 07-15-2022 Emergency department patient visit DO None PCP [facility] Start: 04-10-2022 End: 04-10-2022 ambulatory RABIA MCKNIGHT Facility:[facility] Start: 04-10-2022 End: 04-10-2022 Patient encounter procedure Rabia Mcknight MD Work Phone: [facility] Procedures Date Procedure Procedure Detail Performing Clinician Start: 01-15-2023 CT of head without contrast MD CELIO AGUILERA MD Work Phone: Start: 07-15-2022 Plain chest X-ray DO No ne PCP Start: 04-06-2022 Urnls dip stick/tabl et rgnt auto w/o microscopy Cristina Langley PA-C Work Phone: Start: 05-17-2021 Radex spine cervical 2 or 3 views Robert Roberts MD Work Phone: Start: 01-14-2015 Biopsy of lymph node ESTIVEN OLIVA DO Start: 12-07-2013 Biopsy of lymph node ESTIVEN OLIVA DO Start: 07-08-2006 Cholecystectomy RAHEEL OLIVA DO Plan of Treatment Date Care Activity Detail Author Start: 04-19-2023 Encounter for problem [facility] Work Phone: Start: 07-15-2022 [facility] Work Phone: Start: 03-08-2022 Influenza vaccination [facility] Start: 07-08-2021 DEPRESSION ASSESSMENT DEPRESSION ASSESSMENT [facility] Start: 03-08-2021 Influenza vaccination Flu vaccine (#1) [facility] Start: 01-28-2008 Urine microalbumin profile DTAP,TDAP,TD (1 - Tdap) [facility] Start: 2007 HEPATITIS C SCREENING HEPATITIS C SCREENING [facility] Start: 2007 HIV SCREENING HIV SCREENING [facility] Start: 2001 Adult depression screening assessment DEPRESSION SCREENING [facility] Start: 2001 COVID-19 Vaccine (1) [facility] Start: 1995 PNEUMOCOCCAL (1 - PCV) PNEUMOCOCCAL (1 - PCV) [facility] Start: 1994 COVID-19 VACCINE (1) COVID-19 VACCINE (1) [facility] Start: 1989 COVID-19 VACCINE (#1) COVID-19 VACCINE (#1) [facility] Start: 1989 HEPATITIS B (1 of 3 - 3-dose series) HEPATITIS B (1 of 3 - 3-dose series) [facility] Nitrite [Presence] i n Urine [facility] Work Phone: Patient Education Raya sheriff [facility] Work Phone: Patient referral Lai nguyen [facility] Work Phone: pH of Urine [facility] Work Phone: Specific gravity of Urine [facility] Work Phone: [facility] Payers Date Payer Category Payer Self-pay [id number] 2014 Unknown [id number] 1989 Unknown [id number] 2.. [id number] 1989 Unknown [id number] 2.. [id number] 1989 Unknown [id number] 2.. [id number] 1989 Unknown [id number] 2.. [id number] 1989 Unknown [id number] 2. [id number] Unknown [id number] 2.16. [id number] Unknown [id number] 2.16.8 [id number] Unknown [id number] 2.16.8 [id number] Unknown [id number] 2.16.8 [id number] Unknown [id number] 2.16.8 [id number] Unknown [id number] 2.16.8 [id number] Social History Date Type Detail Facility Start: 05-17-2021 Tobacco smoking status UTIS Never smoked tobacco [facility] Work Phone: Start: 05-17-2021 End: 04-06-2022 Alcohol intake Current drinker of alcohol (finding) [facility] Work Phone: Start: 05-17-2021 History SDOH Alcohol Comment occasional [facility] Work Phone: Start: 1990 Sex Assigned At Not on file [facility] Work Phone: Start: 10-21-2021 End: 04-10-2022 Exposure to SARS-CoV-2 (event) Not sure [facility] Work Phone: Start: 07-15-2022 End: 01-15-2023 Tobacco smoking consumption unknown (finding) [facility] Start: 1990 Sex Assigned At Male [facility] Start: 02-23-2019 End: 04-06-2022 Tobacco smoking status NHIS Occasional tobacco smoker [facility] Start: 02-23-2019 End: 12-07-2019 Tobacco use and exposure User of smokeless tobacco [facility] Start: 04-06-2022 Tobacco use and exposure Former smokeless tobacco user [facility] Start: 09-30-2022 History SDOH Alcohol Comment Ocassionally [facility] Start: 07-15-2022 Current Every day smoke r [facility] Phone: Start: 07-15-2022 Yes Raya sheriff [facility] Work Phone: Sex Assigned At [facility] Jajah Phone: Alcohol intake Denies alcohol use [facility] Work Phone: History of tobacco use Patient is a current smoker, smokes every day [facility] Work Phone: Details of drug misuse behavior Denies Drug Use [facility] Jajah Phone: Start: 01-15-2023 Beer Raya sheriff [facility] Phone: Mental Status Date Assessment Result Facility 01-15-2023 [facility] Work Phone: 07-15-2022 Cognitive function Appropriate;[facility] Phone: Clinical Notes 05-26-2021 to 01-04-2023 Note Date & Type Note Facility [facility] Jajah Phone: 1(150) 886-120405-15-2023 Evaluation note* Date Code Description Provider 11/19/2022 M79.641 Pain in right hand Lilibeth New M.D. 11/19/2022 R20.2 Paresthesia of skin Lilibeth New M.D. [facility] Work Phone: 1(966) 403-910305-08-2023 [facility] [address] [place] [address] PT OP Discharge Summary : [id number] Signed Name: SWETHA CODY MRUN: [id number] : 1990 Age/Sex: 32 / M Physician: ROSIEMINDI Holman NP Physical Therapy Outpatient Discharge Summary Date: 11/12/22 Time: 0949 Medical Diagnosis: Acute Pain in Left Shoulder Referring Practitioner: Nancy Puentes NP Treatment Diagnosis: left shoulder pain/stiffness; muscle weakness Dates of Services: 10/16/22 Total Number of Visits: 1 Treatment Plan Includes: ther ex, manual therapy, modalities, kinesio taping Patient has not shown for a physical therapy appointment since 10/16/22. Patient was unable to be re-assessed, or progress toward goals determined, due to not showing for further appointments. Patient discharged at this time. Thank you for this referral. Please feel free to call with any questions or concerns. Dictated By:Darinel HERNANDEZ DPT [id number] Dictated Date/Time:11/12/22947 Transcribed Date/Time:11/12/2294711/12/[address] [place], [place] [address]5601-08-2023 WBC Auto (Urine sed) [#/Area]Urine WBCJanuary 2022 3:17xq4-0 /HPFUnless otherwise noted, urine microscopic evaluation is normal.[facility] [id number] [address] [place] [address] Work Phone: Comment on above:Unless otherwise noted, urine microscopic evaluation is normal.04-10-2022 NoteHNO ID: [id number] Author: Rabia Mcknight MD Service: ? Author Type: Physician Type: Progress Notes Filed: 04/10/2022 10:56 AM Note Text: [facility] UROLOGY CONSULT PATIENT CLINIC NOTE PATIENT INFO: Swetha Cody (32 year old) Referred by: Cristina Langley [address] [facility] [id number] 04/10/2022 UROLOGY DIAGNOSES: 1. Testicular pain, right - ICD9: 608.9, ICD10: N50.811 CHIEF COMPLAINT: Testis Pain HPI: 32 year old, male presents for evaluation of testis pain on the RIGHT side. Pain has been present for 4 months. Pain is constant in nature. Nothing makes the pain worse and rest makes the pain better. Previous surgery: None Desires fertility: 3 kids, done with fertility Therapies tried: Naproxen CT Abd/Pelvis: No acute process Scrotal US: No acute process Genitourinary history: Hx Mumps orchitis, trauma, or undescended testis: none Hx stone disease: none Hx UTI/prostatitis/epididimitis/STI: none ROS: Sexual frequency/libido:intact, no ED Urinary sx: none Hematuria: none Symptom Scores: Chronic Orchialgia Symptom Index: Pain 13, Sexual 4, Quality of Life 10, Total 27 PMH: PAST MEDICAL HISTORY Diagnosis Date Low back pain PSH: PAST SURGICAL HISTORY Procedure Laterality Date CHOLECYSTECTOMY 2006 SH: Social History Tobacco Use Smoking status: Some Days Smokeless tobacco: Former Quit date: 12/2019 Vaping Use Vaping Use: Some days Substances: Nicotine, Flavoring Devices: Disposable, Pre-filled or refillable cartridge, Refillable tank, Pre-filled pod Substance Use Topics Alcohol use: Yes Comment: Ocassionally Drug use: Yes Frequency: 14.0 times per week Types: Marijuana FH: History reviewed. No pertinent family history. REVIEW OF SYSTEMS: Review of Systems: Constitutional: No weakness, fever/chills, unexplained weight change Psychiatric: Stable mood Skin: No rashes or lesions HEENT: No blurred vision or double vision. No severe or worsening headaches. Sense of smell intact Neck: No masses or pain Chest: No shortness of breath or cough. No history of recurrent pneumonia, bronchitis, or sinustitis. CVS: No chest pains or palpatations. No history of cardiovascular disease. GI: No nausea, vomiting or abdominal pain Neurologic: No weakness or sensory changes : see above Musculoskeletal: Stable All other systems reviewed and noncontributory Allergy: Bactrim [Sulfamethoxazole-Trimethoprim] MEDICATIONS: Current Outpatient Medications Medication Sig Dispense Refill acetaminophen 325 mg cap Take by mouth. (Patient not taking: No sig reported) triamcinolone (KENALOG) 0.025 % ointment Apply to affected area three times daily. (Patient not taking: No sig reported) 80 g 0 Dextromethorphan-guaiFENesin (MUCINEX DM) 60-1,200 mg tab ER 12 hr Take 1 tablet by mouth twice daily as needed (Congestion/pressure, headaches). (Patient not taking: No sig reported) 30 tablet 0 fluticasone (FLONASE) 50 mcg/actuation nasal spray Use 2 Sprays in each nostril once daily. Rinse mouth after use. (Patient not taking: No sig reported) 1 Bottle 1 No current facility-administered medications for this visit. PHYSICAL EXAM: Ht 175.3 cm (5' 9 ) Wt 64.9 kg (143 lb) BMI 21.12 kg/m? Body mass index is 21.12 kg/m?. General Appearance/ Constitutional: Well developed, well nourished, and in no apparent distress HEENT: Normal Neck: Lymph Nodes: Normal Cardiac: Normal Breast: Not examined Pulmonary: Ascultation: Not examined Effort: Normal GI: Soft, Non-tender, Non-distended and Costovertebral angle tenderness absent Peripheral Vascular: Not examined Extremities: Cyanosis absent, Clubbing absent and Edema absent Skin: Normal Neurologic: Normal, Grossly non-focal, Alert and oriented and Affect appropriate (MALE): Penis: Normal without external lesions and Circumcised Testicles: Abnormal: RIGHT epididymis and cord TTP Scrotum: Normal No results found for: PSA, PSAPER DIAGNOSES: 1. Testicular pain, right - ICD9: 608.9, ICD10: N50.811 IMPRESSION/PLAN: 32 year old, male with RIGHT testis pain. Scrotal US and CT images reviewed by me. UA/Urine Culture: Negative Discussed conservative measures including antinflammatories, scrotal support. Discussed the etiology of testicular pain without an anatomic cause. Offered cord block. CORD BLOCK RIGHT: High scrotal region prepped with betadine followed with alcohol. Cord encircled with fingers at level of external ring. 10 cc of 0.25% bupivicaine and 2% lidocaine instilled into cord without difficulty. Patient said that pain resolved. Will call in the next few days about maximal benefit and decision to go ahead with surgery. Understands that would never have a better result than the best improvement with cord block. Risks and benefits of denervation surgery discussed with 80% chance of pain improvement (more content not included)...[facility] 04-10-2022 History of Present illness Narrative* Rabia Mcknight MD - 04/10/2022 9:54 AM EDT Images from the original note were not included. [facility] UROLOGY CONSULT PATIENT CLINIC NOTE PATIENT INFO: Swetha Cody (32 year old) Referred by: Cristina Langley [address] [facility] [id number] 04/10/2022 UROLOGY DIAGNOSES: 1. Testicular pain, right - ICD9: 608.9, ICD10: N50.811 CHIEF COMPLAINT: Testis Pain HPI: 32 year old, male presents for evaluation of testis pain on the RIGHT side. Pain has been present for 4 months. Pain is constant in nature. Nothing makes the pain worse and rest makes the pain better. Previous surgery: None Desires fertility: 3 kids, done with fertility Therapies tried: Naproxen CT Abd/Pelvis: No acute process Scrotal US: No acute process Genitourinary history: Hx Mumps orchitis, trauma, or undescended testis: none Hx stone disease: none Hx UTI/prostatitis/epididimitis/STI: none ROS: Sexual frequency/libido:intact, no ED Urinary sx: none Hematuria: none Symptom Scores: Chronic Orchialgia Symptom Index: Pain 13, Sexual 4, Quality of Life 10, Total 27 PMH: PAST MEDICAL HISTORY Diagnosis Date Low back pain PSH: PAST SURGICAL HISTORY Procedure Laterality Date CHOLECYSTECTOMY 2006 SH: Social History Tobacco Use Smoking status: Some Days Smokeless tobacco: Former Quit date: 12/2019 Vaping Use Vaping Use: Some days Substances: Nicotine, Flavoring Devices: Disposable, Pre-filled or refillable cartridge, Refillable tank, Pre- filled pod Substance Use Topics Alcohol use: Yes Comment: Ocassionally Drug use: Yes Frequency: 14.0 times per week Types: Marijuana FH: History reviewed. No pertinent family history. REVIEW OF SYSTEMS: Review of Systems: Constitutional: No weakness, fever/chills, unexplained weight change Psychiatric: Stable mood Skin: No rashes or lesions HEENT: No blurred vision or double vision. No severe or worsening headaches. Sense of smell intact Neck: No masses or pain Chest: No shortness of breath or cough. No history of recurrent pneumonia, bronchitis, or sinustitis. CVS: No chest pains or palpatations. No history of cardiovascular disease. GI: No nausea, vomiting or abdominal pain Neurologic: No weakness or sensory changes : see above Musculoskeletal: Stable All other systems reviewed and noncontributory Allergy: Bactrim [Sulfamethoxazole-Trimethoprim] MEDICATIONS: Current Outpatient Medications Medication Sig Dispense Refill acetaminophen 325 mg cap Take by mouth. (Patient not taking: No sig reported) triamcinolone (KENALOG) 0.025 % ointment Apply to affected area three times daily. (Patient not taking: No sig reported) 80 g 0 Dextromethorphan-guaiFENesin (MUCINEX DM) 60-1,200 mg tab ER 12 hr Take 1 tablet by mouth twice daily as needed (Congestion/pressure, headaches). (Patient not taking: No sig reported) 30 tablet 0 fluticasone (FLONASE) 50 mcg/actuation nasal spray Use 2 Sprays in each nostril once daily. Rinse mouth after use. (Patient not taking: No sig reported) 1 Bottle 1 No current facility-administered medications for this visit. PHYSICAL EXAM: Ht 175.3 cm (5' 9 ) Wt 64.9 kg (143 lb) BMI 21.12 kg/m Body mass index is 21.12 kg/m . General Appearance/ Constitutional: Well developed, well nourished, and in no apparent distress HEENT: Normal Neck: Lymph Nodes: Normal Cardiac: Normal Breast: Not examined Pulmonary: Ascultation: Not examined Effort: Normal GI: Soft, Non-tender, Non-distended and Costovertebral angle tenderness absent Peripheral Vascular: Not examined Extremities: Cyanosis absent, Clubbing absent and Edema absent Skin: Normal Neurologic: Normal, Grossly non-focal, Alert and oriented and Affect appropriate (MALE): Penis: Normal without external lesions and Circumcised Testicles: Abnormal: RIGHT epididymis and cord TTP Scrotum: Normal No results found for: PSA, PSAPER DIAGNOSES: 1. Testicular pain, right - ICD9: 608.9, ICD10: N50.811 IMPRESSION/PLAN: 32 year old, male with RIGHT testis pain. Scrotal US and CT images reviewed by me. UA/Urine Culture: Negative Discussed conservative measures including antinflammatories, scrotal support. Discussed the etiology of testicular pain without an anatomic cause. Offered cord block. CORD BLOCK RIGHT: High scrotal region prepped with betadine followed with alcohol. Cord encircled with fingers at level of external ring. 10 cc of 0.25% bupivicaine and 2% lidocaine instilled into cord without difficulty. Patient said that pain resolved. Will call in the next few days about maximal benefit and decision to go ahead with surgery. Understands that would never have a better result than the best improvement with cord block. Risks and benefits of denervation surgery discussed with 80% chance of pain improvement and 10% chance of complications, the most serious being orchiectomy, hydrocele or worsening of pain. Patient interested to proceed if cord block eliminates pain. Rabia Mcknight MD REFERRED BY: Consultation requested by Dr. Cristina Langley [address] [facility] [id number] for an opinion regarding testicular pain and my final recommendations will be communicated back to the requesting physician by way of shared medical record or letter via US mail. documented in this encounterUniversity Hospitals [facility]09-30-2022 NoteHNO ID: [id number] Author: Marija Pettit LPN Service: ? Author Type: ? Type: Progress Notes Filed: 05/16/2022 4:20 PM Note Text: Verified name and date of . CC Post Void Residual HPI: Swetha Cody is a 32 year old male. The patient is here now for an appointment with ERIBERTO Wood MT, PA-COV. Procedure: Explained procedure to patient and verbalizes understanding. Performed a PVR. Patient urinated and instructed to empty bladder as much as possible just prior to having PVR done using bladder ultrasound scanner. Results of scan: 0 mL The patient tolerated the procedure well. Plan: Appointment with Cristina.[facility]09-[facility] NoteHNO ID: [id number] Author: Cristina Langley PA-C Service: ? Author Type: Physician Red Mud Thickener Operator Type: Progress Notes Filed: 05/16/2022 4:20 PM Note Text: [facility] NEW PATIENT CLINIC NOTE SERVICE DATE: 04/06/2022 SERVICE TIME: 11:12 AM NAME: Swetha Cody CHIEF COMPLAINT: Orchalgia HISTORY OF PRESENT ILLNESS: Swetha Cody is a 32 year old Male with PMH including Testicle pain and was seen in ER October 2021 presenting with review of US and conitnued Testicle pain. Therapy since October has not help with pain The patient reports he is in moderate pain and would like to discuss Cord Block and possible SCD LUTS: None Other symptoms: LABS: No results found for: TESTOST No results found for: TESTFREE No results found for: PSA No results found for: HCT MEDICATIONS: acetaminophen 325 mg cap Take by mouth. (Patient not taking: No sig reported) triamcinolone (KENALOG) 0.025 % ointment Apply to affected area three times daily. (Patient not taking: No sig reported) Dextromethorphan-guaiFENesin (MUCINEX DM) 60-1,200 mg tab ER 12 hr Take 1 tablet by mouth twice daily as needed (Congestion/pressure, headaches). (Patient not taking: No sig reported) fluticasone (FLONASE) 50 mcg/actuation nasal spray Use 2 Sprays in each nostril once daily. Rinse mouth after use. (Patient not taking: No sig reported) PAST MEDICAL HISTORY: PAST MEDICAL HISTORY Diagnosis Date Low back pain PAST SURGICAL HISTORY: PAST SURGICAL HISTORY Procedure Laterality Date CHOLECYSTECTOMY 2006 FAMILY HISTORY: History reviewed. No pertinent family history. SOCIAL HISTORY: Social Connections: Not on file REVIEW OF SYSTEMS: GENERAL: No fever, chills, weight loss, or fatigue. ENMT: Negative CARDIOVASCULAR:NO CHEST PAIN, PALPITATIONS, ANKLE EDEMA RESPIRATORY: No chronic cough, wheezing, dyspnea, hemoptysis. GENITOURINARY: SEE HPI MUSCULOSKELETAL:NO CHRONIC BACK PAIN, ARTHRITIS, CHRONIC NECK PAIN SKIN: NO VARICOSE VEINS, RASH, ABNORMAL ITCHING HEME/LYMPH/IMMUNE:Negative for prolonged bleeding, bruising easily or swollen nodes NEUROLOGICAL: NO HEADACHES, NUMBNESS, SEIZURES, STROKE DIABETES: no All other systems reviewed and are negative PHYSICAL EXAMINATION: Blood pressure 114/70, pulse 86, temperature 36.8 ?C (98.3 ?F), temperature source Temporal, resp. rate 14, height 175.3 cm (5' 9 ), weight 64.9 kg (143 lb), SpO2 100 %. GENERAL: WNL nutrition, no deformities, healthy appearing NEURO: Awake, alert and oriented x 3 and Normal gait PSYCH: No signs of depression, anxiety, or agitation ENMT (Ear, Nose, Mouth, Throat): No masses, adenopathy, icterus. Thyroid nonpalpable RESP: NL effort, no retractions or purse-lip breathing. CV: No extremity swelling, varices, edema, pallor, erythema GASTROINTESTINAL: Soft, nontender, nondistended, no masses. HERNIAS: None SKIN: No rash, lesions No palpable lymphadenopathy MUSCULOSKELETAL: Extremities normal. No deformities, edema, clubbing or skin discoloration. GENITOURINARY: MALE EXAM: No scrotal lesions, cysts, rashes. Epididymis AND testes: normal size, position, without masses - Patient has moderate pain on exam Urethra AND meatus: normal size AND position w/o lesion or discharge PROBLEM LIST REVIEW: Yes LABS: Results for orders placed or performed in visit on 04/06/22 UA DIP, URINE (POC) Result Value Ref Range GLUCOSE UA (POCT) Negative Negative mg/dL BILIRUBIN UA (POCT) Negative Negative KETONE UA (POCT) Negative Negative mg/dL SPECIFIC GRAVITY UA (POCT) 1.020 1.005 - 1.030 HEMOGLOBIN/BLOOD UA (POCT) Negative Negative PH UA (POCT) 7.0 4.5 - 8.0 PROTEIN UA (POCT) Negative Negative mg/dL UROBILINOGEN UA (POCT) 0.2 Normal E.U./dL NITRITE UA (POCT) Negative Negative LEUKOCYTES UA (POCT) Negative Negative COLOR UA (POCT) Yellow CLARITY UA (POCT) Clear PROCEDURES: IMAGING: Scrotum US - FINDINGS: RIGHT TESTICLE: Unremarkable. Normal in size and echotexture. No focal lesion. Normal blood flow is present. LEFT TESTICLE: Unremarkable. Normal in size and echotexture. No focal lesion. Normal blood flow is present. EPIDIDYMIDES: Unremarkable. Normal in size and echotexture, without focal lesion. Normal color Doppler flow pattern in the epididymis. SCROTUM: Unremarkable. No hydrocele. No varicocele. IMPRESSION: Unremarkable bilateral testicular ultrasound. IMPRESSION/PLAN: 32 year old male with 1. Pain in right testicle - ICD9: 608.9, ICD10: N50.811 > Patient with 3 month Testicle pain, and is interested in Cord Block procedure with Dr. Mcknight. Please set him up with that appointment ph [phone] I spent a total of 30 minutes on the date of the service which included preparing to see the patient, face to face patient care, completing clinical documentation, obtaining and/or reviewing separately obtained h (more content not included)...[facility]09-30-[facility] Miscellaneous Notes* Telephone Encounter - Afia Lockhartjesse Gonzalez - 04/06/2022 12:25 PM EDT Pt confirmed his appt with Dr. Mcknight in [place] 04/10/22 @ 10:15am. Clarita documented in this encounterUniversity Hospitals Port[facility] Center09-30-2022 History of Present illness Narrative* Marija Pettit LPN - 04/06/2022 11:21 AM EDT Verified name and date of . CC Post Void Residual HPI: Swetha Cody is a 32 year old male. The patient is here now for an appointment with ERIBERTO Wood, SUBHA, DAVID. Procedure: Explained procedure to patient and verbalizes understanding. Performed a PVR. Patient urinated and instructed to empty bladder as much as possible just prior to having PVR done using bladder ultrasound scanner. Results of scan: 0 mL The patient tolerated the procedure well. Plan: Appointment with Cristina. * Cristina Langley PA-C - 04/06/2022 11:12 AM EDT Images from the original note were not included. [facility] NEW PATIENT CLINIC NOTE SERVICE DATE: 04/06/2022 SERVICE TIME: 11:12 AM NAME: Swetha Cody CHIEF COMPLAINT: Orchalgia HISTORY OF PRESENT ILLNESS: Swetha Cody is a 32 year old Male with PMH including Testicle pain and was seen in ER October2021 presenting with review of US and conitnued Testicle pain. Therapy since October has not help with pain The patient reports he is in moderate pain and would like to discuss Cord Block and possible SCD LUTS: None Other symptoms: LABS: No results found for: TESTOST No results found for: TESTFREE No results found for: PSA No results found for: HCT MEDICATIONS: acetaminophen 325 mg cap Take by mouth. (Patient not taking: No sig reported) triamcinolone (KENALOG) 0.025 % ointment Apply to affected area three times daily. (Patient not taking: No sig reported) Dextromethorphan-guaiFENesin (MUCINEX DM) 60-1,200 mg tab ER 12 hr Take 1 tablet by mouth twice daily as needed (Congestion/pressure, headaches). (Patient not taking: No sig reported) fluticasone (FLONASE) 50 mcg/actuation nasal spray Use 2 Sprays in each nostril once daily. Rinse mouth after use. (Patient not taking: No sig reported) PAST MEDICAL HISTORY: PAST MEDICAL HISTORY Diagnosis Date Low back pain PAST SURGICAL HISTORY: PAST SURGICAL HISTORY Procedure Laterality Date CHOLECYSTECTOMY 2006 FAMILY HISTORY: History reviewed. No pertinent family history. SOCIAL HISTORY: Social Connections: Not on file REVIEW OF SYSTEMS: GENERAL: No fever, chills, weight loss, or fatigue. ENMT: Negative CARDIOVASCULAR:NO CHEST PAIN, PALPITATIONS, ANKLE EDEMA RESPIRATORY: No chronic cough, wheezing, dyspnea, hemoptysis. GENITOURINARY: SEE HPI MUSCULOSKELETAL:NO CHRONIC BACK PAIN, ARTHRITIS, CHRONIC NECK PAIN SKIN: NO VARICOSE VEINS, RASH, ABNORMAL ITCHING HEME/LYMPH/IMMUNE:Negative for prolonged bleeding, bruising easily or swollen nodes NEUROLOGICAL: NO HEADACHES, NUMBNESS, SEIZURES, STROKE DIABETES: no All other systems reviewed and are negative PHYSICAL EXAMINATION: Blood pressure 114/70, pulse 86, temperature 36.8 C (98.3 F), temperature source Temporal, resp. rate 14, height 175.3 cm (5' 9 ), weight 64.9 kg (143 lb), SpO2 100 %. GENERAL: WNL nutrition, no deformities, healthy appearing NEURO: Awake, alert and oriented x 3 and Normal gait PSYCH: No signs of depression, anxiety, or agitation ENMT (Ear, Nose, Mouth, Throat): No masses, adenopathy, icterus. Thyroid nonpalpable RESP: NL effort, no retractions or purse-lip breathing. CV: No extremity swelling, varices, edema, pallor, erythema GASTROINTESTINAL: Soft, nontender, nondistended, no masses. HERNIAS: None SKIN: No rash, lesions No palpable lymphadenopathy MUSCULOSKELETAL: Extremities normal. No deformities, edema, clubbing or skin discoloration. GENITOURINARY: MALE EXAM: No scrotal lesions, cysts, rashes. Epididymis & testes: normal size, position, without masses - Patient has moderate pain on exam Urethra & meatus: normal size & position w/o lesion or discharge PROBLEM LIST REVIEW: Yes LABS: Results for orders placed or performed in visit on 04/06/22 UA DIP, URINE (POC) Result Value Ref Range GLUCOSE UA (POCT) Negative Negative mg/dL BILIRUBIN UA (POCT) Negative Negative KETONE UA (POCT) Negative Negative mg/dL SPECIFIC GRAVITY UA (POCT) 1.020 1.005 - 1.030 HEMOGLOBIN/BLOOD UA (POCT) Negative Negative PH UA (POCT) 7.0 4.5 - 8.0 PROTEIN UA (POCT) Negative Negative mg/dL UROBILINOGEN UA (POCT) 0.2 Normal E.U./dL NITRITE UA (POCT) Negative Negative LEUKOCYTES UA (POCT) Negative Negative COLOR UA (POCT) Yellow CLARITY UA (POCT) Clear PROCEDURES: IMAGING: Scrotum US - FINDINGS: RIGHT TESTICLE: Unremarkable. Normal in size and echotexture. No focal lesion. Normal blood flow is present. LEFT TESTICLE: Unremarkable. Normal in size and echotexture. No focal lesion. Normal blood flow is present. EPIDIDYMIDES: Unremarkable. Normal in size and echotexture, without focal lesion. Normal color Doppler flow pattern in the epididymis. SCROTUM: Unremarkable. No hydrocele. No varicocele. IMPRESSION: Unremarkable bilateral testicular ultrasound. IMPRESSION/PLAN: 32 year old male with 1. Pain in right testicle - ICD9: 608.9, ICD10: N50.811 > Patient with 3 month Testicle pain, and is interested in Cord Block procedure with Dr. Mcknight.Please set him up with that appointment ph [phone] I spent a total of 30 minutes on the date of the service which included preparing to see the patient, face to face patient care, completing clinical documentation, obtaining and/or reviewing separately obtained history, performing a medically appropriate examination, counseling and educating the pat ient/family/caregiver, ordering medications, tests, or procedures, and care coordination. ERIBERTO Wood, MT, SIXTO documented in this encounterUniversity Hospitals [facility] Center04-26-2022 NoteHNO ID: [id number] Author: Nacho Hernandez APRN.HANG Service: ? Author Type: Nurse Practitioner Type: Progress Notes Filed: 10/31/2021 3:44 PM Note Text: Subjective HPI Nontoxic appearing male presents urgent care chief complaint mid to lower back pain. Duration of symptoms 1 day. Associated symptoms lower to mid back pain. Patient states history of back pain in the past this is similar. States this is the most severe pain he has ever had in his back. Rates a 10 out of 10. Denies any injuries. States he does have radiculopathy into his bilateral legs. Denies any fever body aches chills saddle anesthesia incontinence. No rashes. Past medical history prescription medication use allergies reviewed. .Patient presents with: Pain: Pt reported lower back pain rated 10, denied accident/injury x1 day PAST MEDICAL HISTORY Diagnosis Date - Low back pain PAST SURGICAL HISTORY Procedure Laterality Date - CHOLECYSTECTOMY 2006 ALLERGIES Bactrim [Sulfamethoxazole-Trimethoprim] MEDICATIONS acetaminophen (TYLENOL) 325 mg cap Take by mouth. triamcinolone (KENALOG) 0.025 % ointment Apply to affected area three times daily. Dextromethorphan-guaiFENesin (MUCINEX DM) 60-1,200 mg tab ER 12 hr Take 1 tablet by mouth twice daily as needed (Congestion/pressure, headaches). fluticasone (FLONASE) 50 mcg/actuation nasal spray Use 2 Sprays in each nostril once daily. Rinse mouth after use. History reviewed. No pertinent family history. Social History Tobacco Use - Smoking status: Current Some Day Smoker - Smokeless tobacco: Current User Substance Use Topics - Alcohol use: Yes - Drug use: Yes Types: Marijuana BP 124/78 Pulse 60 Temp 36.6 ?C (97.9 ?F) Resp 18 Wt 67.2 kg (148 lb 3.2 oz) SpO2 99% Review of Systems Constitutional: Negative for chills, fever and malaise/fatigue. HENT: Negative for congestion, ear discharge, ear pain, sinus pain and sore throat. Eyes: Negative for blurred vision, pain, discharge and redness. Respiratory: Negative for cough, hemoptysis, sputum production, shortness of breath, wheezing and stridor. Cardiovascular: Negative for chest pain. Gastrointestinal: Negative for abdominal pain, diarrhea, nausea and vomiting. Musculoskeletal: Positive for back pain. Negative for falls, joint pain, myalgias and neck pain. Skin: Negative for itching and rash. Neurological: Negative for dizziness and headaches. Objective Physical Exam Constitutional: General: He is not in acute distress. Appearance: He is not diaphoretic. HENT: Head: Normocephalic. Cardiovascular: Rate and Rhythm: Normal rate and regular rhythm. Heart sounds: Normal heart sounds. Pulmonary: Effort: Pulmonary effort is normal. No tachypnea, accessory muscle usage or respiratory distress. Breath sounds: Normal breath sounds. No stridor. Abdominal: Palpations: Abdomen is soft. Tenderness: There is no abdominal tenderness. Musculoskeletal: Back: Comments: No erythema edema noted. No decreased range of motion. Patient was sitting in chair without distress. Spinal moderate tenderness with palpation noted. Skin: General: Skin is warm and dry. Neurological: Mental Status: He is alert and oriented to person, place, and time. ASSESSMENT/PLAN: 1. Upper back pain - ICD9: 724.5, ICD10: M54.9 Patient diagnosed with back pain. With 10 out of 10 pain and spinal tenderness I recommended patient be seen in ED for further evaluation care. Patient/significant other verbalized understanding agrees with plan of care. Nacho Hernandez APRN.HANGWright-Patterson [facility] Center04-26-2022 History of Present illness Narrative* Nacho Hernandez APRN.HANG - 10/31/2021 3:22 PM EDT Images from the original note were not included. Subjective HPI Nontoxic appearing male presents urgent care chief complaint mid to lower back pain. Duration of symptoms 1 day. Associated symptoms lower to mid back pain. Patient states history of back pain in thepast this is similar. States this is the most severe pain he has ever had in his back. Rates a 10 out of 10. Denies any injuries. States he does have radiculopathy into his bilateral legs. Denies anyfever body aches chills saddle anesthesia incontinence. No rashes. Past medical history prescription medication use allergies reviewed. .Patient presents with: Pain: Pt reported lower back pain rated 10, denied accident/injury x1 day PAST MEDICAL HISTORY Diagnosis Date Low back pain PAST SURGICAL HISTORY Procedure Laterality Date CHOLECYSTECTOMY 2007 ALLERGIES Bactrim [Sulfamethoxazole-Trimethoprim] MEDICATIONS acetaminophen (TYLENOL) 325 mg cap Take by mouth. triamcinolone (KENALOG) 0.025 % ointment Apply to affected area three times daily. Dextromethorphan-guaiFENesin (MUCINEX DM) 60-1,200 mg tab ER 12 hr Take 1 tablet by mouth twice daily as needed (Congestion/pressure, headaches). fluticasone (FLONASE) 50 mcg/actuation nasal spray Use 2 Sprays in each nostril once daily. Rinse mouth after use. History reviewed. No pertinent family history. Social History Tobacco Use Smoking status: Current Some Day Smoker Smokeless tobacco: Current User Substance Use Topics Alcohol use: Yes Drug use: Yes Types: Marijuana BP 124/78 Pulse 60 Temp 36.6 C (97.9 F) Resp 18 Wt 67.2 kg (148 lb 3.2 oz) SpO2 99% Review of Systems Constitutional: Negative for chills, fever and malaise/fatigue. HENT: Negative for congestion, ear discharge, ear pain, sinus pain and sore throat. Eyes: Negative for blurred vision, pain, discharge and redness. Respiratory: Negative for cough, hemoptysis, sputum production, shortness of breath, wheezing and stridor. Cardiovascular: Negative for chest pain. Gastrointestinal: Negative for abdominal pain, diarrhea, nausea and vomiting. Musculoskeletal: Positive for back pain. Negative for falls, joint pain, myalgias and neck pain. Skin: Negative for itching and rash. Neurological: Negative for dizziness and headaches. Objective Physical Exam Constitutional: General: He is not in acute distress. Appearance: He is not diaphoretic. HENT: Head: Normocephalic. Cardiovascular: Rate and Rhythm: Normal rate and regular rhythm. Heart sounds: Normal heart sounds. Pulmonary: Effort: Pulmonary effort is normal. No tachypnea, accessory muscle usage or respiratory distress. Breath sounds: Normal breath sounds. No stridor. Abdominal: Palpations: Abdomen is soft. Tenderness: There is no abdominal tenderness. Musculoskeletal: Back: Comments: No erythema edema noted. No decreased range of motion. Patient was sitting in chair without distress. Spinal moderate tenderness with palpation noted. Skin: General: Skin is warm and dry. Neurological: Mental Status: He is alert and oriented to person, place, and time. ASSESSMENT/PLAN: 1. Upper back pain - ICD9: 724.5, ICD10: M54.9 Patient diagnosed with back pain. With 10 out of 10 pain and spinal tenderness I recommended patient be seen in ED for further evaluation care. Patient/significant other verbalized understanding agrees with plan of care. Nacho Hernandez APRN.HANG documented in this encounterUniversity Hospitals Portage [facility] Center12-08-2021 NoteHNO ID: [id number] Author: Anaya Avila PA-C Service: ? Author Type: Physician Red Mud Thickener Operator Type: Progress Notes Filed: 06/14/2021 12:22 PM Note Text: Subjective HPI HPI Swetha Cody is a 31 year old male who presents today for CC of nausea and cough that started last night. 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 Notes that he feels some SOB at baseline, but states it has been worse with this. He had asthma growing up, and is currently a smoker - smokes 1-2 black and milds/day. He states he had covid in 05/28, but work is requesting a repeat PCR anyhow d/t exposures at work. He clarifies as though he works with people who tested positive, however has not been within close proximity. Symptoms include: Fever (?100.4F): No or Chills: No Cough: Yes Shortness of breath: Yes or Difficulty breathing: No Fatigue: No Muscle aches: Yes Headache: Yes New loss of smell or taste: No Sore throat: Yes Nasal congestion: Yes or Rhinorrhea: No Nausea: Yes or Vomiting: No Diarrhea: No OTC meds/remedies that patient has tried: nothing OTC. High risk category assessment No high risk factors Exposures: Sick contacts? No Family or close contacts with confirmed/probable COVID-19 in last 14 days? No BP 118/78 Pulse 66 Temp 36.3 ?C (97.4 ?F) (Tympanic) Resp 18 Wt 65.3 kg (144 lb) SpO2 99% Social History Tobacco Use - Smoking status: Current Some Day Smoker - Smokeless tobacco: Current User Substance Use Topics - Alcohol use: Not on file - Drug use: Not on file PAST MEDICAL HISTORY Diagnosis Date - Low back pain I have confirmed and edited as necessary, the [facility] Review of Systems All other systems reviewed and are negative. Objective BP 118/78 Pulse 66 Temp 36.3 ?C (97.4 ?F) (Tympanic) Resp 18 Wt 65.3 kg (144 lb) SpO2 99% Physical Exam Vitals and nursing note reviewed. Constitutional: Appearance: Normal appearance. He is ill-appearing (Mild; Generally fatigued appearance.). He is not toxic-appearing. HENT: Head: Normocephalic and atraumatic. Nose: No mucosal edema or rhinorrhea. Right Sinus: No maxillary sinus tenderness or frontal sinus tenderness. Left Sinus: No maxillary sinus tenderness or frontal sinus tenderness. Mouth/Throat: Pharynx: Uvula midline. No oropharyngeal exudate or posterior oropharyngeal erythema. Tonsils: No tonsillar abscesses. Cardiovascular: Rate and Rhythm: Normal rate and regular rhythm. Heart sounds: Normal heart sounds, S1 normal and S2 normal. No murmur heard. Pulmonary: Effort: Pulmonary effort is normal. Breath sounds: Normal breath sounds. No decreased breath sounds, wheezing, rhonchi or rales. Abdominal: General: Bowel sounds are normal. Palpations: Abdomen is soft. Abdomen is not rigid. Tenderness: There is no abdominal tenderness. There is no guarding. Musculoskeletal: Cervical back: Normal range of motion. Lymphadenopathy: Head: Right side of head: No submental, submandibular, tonsillar, preauricular, posterior auricular or occipital adenopathy. Left side of head: No submental, submandibular, tonsillar, preauricular, posterior auricular or occipital adenopathy. Cervical: No cervical adenopathy. Right cervical: No superficial or posterior cervical adenopathy. Left cervical: No superficial or posterior cervical adenopathy. Skin: General: Skin is warm and dry. Neurological: Mental Status: He is alert and oriented to person, place, and time. Psychiatric: Mood and Affect: Affect normal. ASSESSMENT/PLAN: 1. Viral syndrome - ICD9: 079.99, ICD10: B34.9 - Discussed viral etiology and rationale for treatment. Covid testing ordered, although I explained to pt this could still be positive from infection 1 month ago. Results will be released to [facility] in 24-48 hours. Discussed quarantine, social distancing, hand washing/proper hygiene. Rest, fluids, OTC medications discussed. - 2019 CORONAVIRUS Pt advised to see PCP if symptoms persist or progress. Reviewed red flags with patient and when to seek care sooner. The patient indicates understanding of these issues and agrees with the plan. ELIDIA [facility]11-19-2021 Hospital Discharge instructions Patient Education 05/26/2021 15:35:11 COVID-19 Prevent the Spread of COVID-19 If You Are Sick (11/24/2019) (CUSTOM) Prevent the Spread of COVID-19 If You Are Sick Accessible version: https://www.cdc.gov/coronavirus/2019-ncov/jf-ngv-zrt-sick/hhxza-sloz-oxdk.html If you are sick with COVID-19 or think you might have COVID-19, follow the steps below to help protect other people in your home and community. Stay home except to get medical care. Stay home. Most people with COVID-19 have mild illness and are able to recover at home without medical care. Do not leave your home, except to get medical care. Do not visit public areas. Take care of yourself. Get rest and stay hydrated. Get medical care when needed. Call your doctor before you go to their office for care. But, if you have trouble breathing or other concerning symptoms, call 911 for immediate help. Avoid public transportation, ride-sharing, or taxis. Separate yourself from other people and pets in your home. As much as possible, stay in a specific room and away from other people and pets in your home. Also, you should use a separate bathroom, if available. If you need to be around other people or animalsin or outside of the home, wear a cloth face covering. See COVID-19 and Animals if you have questions about pets: https://www.cdc.gov/coronavirus/2019ncov/faq.html#JWACK06bsfzulj Monitor your symptoms. Common symptoms of COVID-19 include fever and cough. Trouble breathing is a more serious symptom that means you should get medical attention. Follow care instructions from your healthcare provider and local health department. Your local health authorities will give instructions on checking your symptoms and reporting information. If you develop emergency warning signs for COVID-19 get medical attention immediately. Emergency warning signs include*: Trouble breathing Persistent pain or pressure in the chest New confusion or not able to be woken Bluish lips or face *This list is not all inclusive. Please consult your medical provider for any other symptoms that are severe or concerning to you. Call 911 if you have a medical emergency. If you have a medical emergency and need to call 911, notify the pneumatic hoist operator that you have or think you might have, COVID-19. If possible, put on a facemask before medical help arrives Call ahead before visiting your doctor. Call ahead. Many medical visits for routine care are being postponed or done by phone or telemedicine. If you have a medical appointment that cannot be postponed, call your doctor s office. This will help the office protect themselves and other patients. If you are sick, wear a cloth covering over your nose and mouth. You should wear a cloth face covering over your nose and mouth if you must be around other people or animals, including pets (even at home). You don t need to wear the cloth face covering if you are alone. If you can t put on a cloth face covering (because of trouble breathing for example), cover your coughs and sneezes in some other way.Try to stay at least 6 feet away from other people. This will help protect the people around you. Note: During the COVID-19 pandemic, medical grade facemasks are reserved for healthcare workers andsome first responders. You may need to make a cloth face covering using a scarf or bandana. Cover your coughs and sneezes. Cover your mouth and nose with a tissue when you cough or sneeze. Throw used tissues in a lined trash can. Immediately wash your hands with soap and water for at least 20 seconds. If soap and water are not available, clean your hands with an alcohol-based hand body masker that contains at least 60% alcohol. Clean your hands often. Wash your hands often with soap and water for at least 20 seconds. This is especially important after blowing your nose, coughing, or sneezing; going to the bathroom; and before eating or preparing food. Use hand body masker if soap and water are not available. Use an alcohol-based hand body masker with atleast 60% alcohol, covering all surfaces of your hands and rubbing them together until they feel dry. Soap and water are the best option, especially if your hands are visibly dirty. \ Avoid touching your eyes, nose, and mouth with unwashed hands. Avoid sharing personal household items. Do not share dishes, drinking glasses, cups, eating utensils, towels, or bedding with other people in your home. Wash these items thoroughly after using them with soap and water or put them in the etcher hand. Clean all high-touch surfaces everyday. Clean and disinfect high-touch surfaces in your sick room and bathroom. Let someone else clean and disinfect surfaces in common areas, but not your bedroom and bathroom. If a caregiver or other person needs to clean and disinfect a sick person s bedroom or bathroom, they should do so on an as-needed basis. The caregiver/other person should wear a mask and wait as long as possible after the sick person has used the bathroom High-touch surfaces include phones, remote controls, counters, tabletops, doorknobs, bathroom fixtures, toilets, keyboards, tablets, and bedside tables. Clean and disinfect areas that may have blood, stool, or body fluids on them. Use household professor of violin and disinfectants. Clean the area or item with soap and water or another detergent if it is dirty. Then use a household disinfectant. Be sure to follow the instructions on the label to ensure safe and effective use of the product. Many products recommend keeping the surface wet for several minutes to ensure germs are killed. Many also recommend precautions such as wearing gloves and making sure you have good ventilation during use of the product. Most EPA-registered household disinfectants should be effective. How to discontinue home isolation. People with COVID-19 who have stayed home (home isolated) can stop home isolation under the following conditions: If you will not have a test to determine if you are still contagious, you can leave home after these three things have happened: You have had no fever for at least 72 hours (that is three full days of no fever without the use ofmedicine that reduces fevers) AND other symptoms have improved (for example, when your cough or shortness of breath has improved) AND at least 10 days have passed since your symptoms first appeared. If you will be tested to determine if you are still contagious, you can leave home after these three things have happened: You no longer have a fever (without the use of medicine that reduces fevers) AND other symptoms have improved (for example, when your cough or shortness of breath has improved) AND you received two negative tests in a row, 24 hours apart. Your doctor will follow CDC guidelines. In all cases, follow the guidance of your healthcare provider and local health department. The decision to stop home isolation should be made in consultation with your healthcare provider and [facility] and local health departments. Local decisions depend on local circumstances. cdc.gov/coronavirus Follow Up Care 05/26/2021 15:17:51 With:Call Physician Referral Address:Unknown When:2-4 days [facility] Evaluation + Plan note No data available for this section [facility] Evaluation note* Diagnosis Cervical radiculopathy- Primary Brachial neuritis or radiculitis nos documented in this encounter [facility] Work Phone: Evaluation note* Diagnosis Upper back pain- Primary [facility] [place] [facility] Diagnosis Testicular pain, right- Primary Unspecified disorder of male genital organs documented in this encounter [facility] note* Diagnosis Pain in right testicle- Primary Unspecified disorder of male genital organs documented in this encounter [facility] noteNo assessment [facility]* Description No Information Available [facility] Work Phone: Hospital Discharge instructions* Instructions* Robert Roberts MD - 05/17/2021 Call and schedule follow-up appointments with both the family practitioner and orthopedist referrals we gave you, take medications prescribed, return if any worsening problems including increasing pain numbness weakness chest pain shortness of breath or any new or unusual symptoms. * Attachments The following attachments cannot be sent through Care Everywhere. * Cervical Pain (Nigerien) documented in this [facility] Work Phone: Summary Purpose Family History No Family History Records FoundNo Family History Records FoundNo Family History Records FoundNo Family History Records FoundNo Family History Records FoundNo Family History Records FoundNo Family History Records FoundNo Family History Records FoundNo Family History Records FoundNo Family History Records Found Advance Directives No Advanced Directives Records FoundNo Advanced Directives Records FoundNo Advanced Directives Records FoundNo Advanced Directives Records FoundNo Advanced Directives Records FoundNo Advanced Directives Records FoundNo Advanced Directives Records FoundNo Advanced Directives Records FoundNo Advanced Directives Records FoundNo Advanced Directives Records Found Reason for Referral Specialty Diagnoses / Procedures Referred By Contac t Referred To Contact Orthopedic Surgery Diagnoses Cervical radiculopathy Robert Roberts MD [address] [place] [address] [facility] [id number] [place] [address] Referral ID Status Reason Start Date Expiration Date V isits Requested Visits Authorized [id number] Open Specialty Services Required 05/17/2021 05/17/2022 1 1 Scheduling Instructions [facility] [place] [address] [place] [id number] Specialty Diagnoses / Procedures [facility] Referred To Contact Family Medicine Diagnoses C[place] [address] [place] [address] [facility] Hao Avalos [address] [address] Referral ID Status Reason Start Date Expiration Date V isits Requested Visits Authorized [id number] Open Specialty Services Required 05/17/2021 05/17/2022 1 1 Scheduling Instructions [facility] [address] [place] [address] Dr Zamora [address] [place] [id number] Description No Information Available Medications Administered Section Inactive Administered Medications - up to 3 most recent administrations Medication Order MAR Action Action Date Dose Rate Site bupivacaine HCl 12.5 mg injection (SENSORCAINE) 12.5 mg (5 mL), INTRADERMAL, ONCE, 1 dose, On Sat04/10/22 at 1100 Given 04/10/2022 10:55 AM EDT 12.5 mg Othe r lidocaine 2 % 5 mL buffered injection (XYLOCAINE) 5 mL, INTRADERMAL, ONCE, 1 dose, On Sat04/10/22 at 1100 Given 04/10/2022 10:55 AM EDT 5 mL Other Chief Complaint and Reason for Visit Chief Complaint CHEST PAIN Chief Complaint m79.641 r20.2 Chief Complaint MIGRAINE Additional Source Comments (unrecognized sect ion and content) No Status Records FoundNo Status Records FoundNo Status Records FoundNo Status Records FoundNo Status Records FoundNo Status Records FoundNo Status Records FoundNo Status Records FoundNo Status Records FoundNo Status Records Found INFORMATION SOURCE (unrecogn ized section and content) DATE CREATED AUTHOR AUTHOR'S ORGANIZ ATION 05/19/2021 [facility] DATE CREATED AUTHOR AUTHOR'S ORGANIZ ATION 05/28/2021 [facility] DATE CREATED AUTHOR AUTHOR'S ORGANIZ ATION 04/11/2022 [facility] DATE CREATED AUTHOR AUTHOR'S ORGANIZ ATION 05/17/2022 [facility] DATE CREATED AUTHOR AUTHOR'S ORGANIZ ATION 11/06/2022 [employer] [facility] DATE CREATED AUTHOR AUTHOR'S ORGANIZ ATION 11/09/2022 [employer] [facility] DATE CREATED AUTHOR AUTHOR'S ORGANIZ ATION 12/31/2022 [facility] DATE CREATED AUTHOR AUTHOR'S ORGANIZ ATION 12/31/2022 [facility] DATE CREATED AUTHOR AUTHOR'S ORGANIZ ATION 01/16/2023 [facility] Reason for Visit (unrecogniz ed section and content) Specialty Diagnoses / Procedures Referred By Alicia taylor Referred To Contact [facility] Diagnoses RIGHT SIDE PAIN AND TESTICULARE PAIN Procedures CARE, TEST , TREAT Self [facility] [address] [place] [address] Referral ID Status Reason Start Date Expiration Date Visits Requested Visits Authorized [id number] Authorized Patient Cleared - Qualified [id number] 03/30/2022 06/28/2022 99 99 Reason Comments Shoulder Pain Reason Comments Pain Pt reported lower ba ck pain rated 10, denied accident/injury x1 day Reason Comments Appointment Reason Comments Consult Ordered Prescriptions (unrec ognized section and content) Scheduled Active and Recently Administ ered Medications (unrecognized section and content) Source Comments (unrecognize d section and content) In the event this informatio n is protected by the Federal Confidentiality of Alcohol and Drug Abuse Patient Records regulations: The Federal rules restrict any use of the information to criminally investigate or prosecute any alcohol or drug abuse patient.[facility] Center[facility] the event this information is protected by the Federal Confidentiality of Alcohol and Drug Abuse Patient Records regulations: The Federal rules restrict any use of the information to criminally investigate or prosecute any alcohol or drug abuse patient.[facility] Center[facility] the event this information is protected by the Federal Confidentiality of Alcohol and Drug Abuse Patient Records regulations: The Federal rules restrict any use of the information to criminally investigate or prosecute any alcohol or drug abuse patient.[facility] Center[facility] the event this information is protected by the Federal Confidentiality of Alcohol and Drug Abuse Patient Records regulations: The Federal rules restrict any use of the information to criminally investigate or prosecute any alcohol or drug abuse patient.[facility] Care Teams (unrecognized sec tion and content) Team Status: Active Member Role Status Dates NO FAMILY DOCTOR Primary Care Provider Active Team Status: Inactive Member Role Status Dates LILIBETH NEW Attending Provider Active NO FAMILY DOCTOR Primary Care Provider Active Goals (unrecognized section and content) Goals may be documented in a n alternate section FOR RECORDS PERTAINING TO PATIENTS WHO ARE OR HAVE BEEN ENROLLED IN A CHEMICAL DEPENDENCY/SUBSTANCEABUSE PROGRAM, SOME INFORMATION MAY BE OMITTED. This clinical summary was aggregated from multiple sources. Caution should be exercised in using it in the provision of clinical care. This summary normalizes information from multiple sources, and as a consequence, information in this document may materially change the coding, format and clinical context of patient data. In addition, data may be omitted in some cases. CLINICAL DECISIONS SHOULD BE BASED ON THE PRIMARY CLINICAL RECORDS. [facility]. provides no warranty or guarantee of the accuracy or completeness of information in this document.
[2023-07-30 10:19] LABS: Pathologist Comment Reviewed
== END 2023-07-29 12:01 | disposition home or self-care (01) ==
PROVIDERS: Emergency Provider Emergency Medicine; Visit Provider Emergency Medicine
DX: M70.21 Olecranon bursitis, right elbow (principal); M25.521 Pain in right elbow; F17.210 Nicotine dependence, cigarettes, uncomplicated
CPT/HCPCS: 73080; 87070; 87075; 87077; 87186; 87205; 89050; 89051; 89060; 99282

== ENCOUNTER 2023-08-07 09:15 | Emergency (ER) | payer MEDICAID, SELFPAY ==
[2023-08-07 09:16] VITALS: BP 134/87; PULSE 63; RESP 18; TEMP 36.1; O2SAT 100; BMI 22.4
--- NOTE | 2023-08-07 10:22 | ED.RN ---
pt lwbs at 1010
--- OUTSIDE RECORDS SUMMARY | 2023-08-07 12:03 | XMS RPT_ITS | CCD ---
Author Name Unknown Address [address] [place] [address] Organization [facility] Care Team Providers Care Newspaper Journalist Name Role Phone RIDER, MARZENA Lepe Unavailable Unavailable TOMI, BHARGAVI A. Unavailable Unavailable TOMI, BHARGAVI A. Unavailable Unavailable Unavailable Primary Care Provider Unavailcourtney garcia PHYSICIAN, NONE Primary Care Physician Unavailab Sunday Guyee Geovanny Primary Care Provider [phone] Unavailable Primary Care Provider UnavailRABIA Davison Attending Unavailable CRISTINA LANGLEY Referring Unavailable ANAYA AVILA Referring Unavailable TOMI, BHARGAVI GEOVANNY Primary Care Unavailable CRISTINA LANGLEY Attending Unavailable TOMI, BHARGAVI GEOVANNY Primary Care Unavailable TOMI BHARGAVI GEOVANNY Primary Care Unavailable PCP, DO None Primary Care Provider Unavailcourtney Bashir MD, MD [place] Emergency Provider [phone] CELIO AGUILERA Referring Unavailable CELIO AGUILERA Attending [...] Provider MD Analia Taylor MD Emergency Provider [phone] ROSIE TRUCK BODY BUILDER, TYLYN R Attending Unavailable ROSIE TRUCK BODY BUILDER, TYLYN R Referring Unavailable PCP, None Primary Care Unavailable CELIO AGUILERA Attending Unavailable ROSIE TRUCK BODY BUILDERMINDI R Attending Unavailable PCP, None Primary Care Unavailable CELIO AGUILERA Primary Care Unavailable Analia Taylor MD Attending Unavailable PCP, None Primary Care Unavailable Mart Bashir MD Attending Unavailable Allergies Allergy Classification Reported Allergen(s) Allergy Type Date of Onset Reaction(s) Facility (8 sources) Sulfamethoxazole / Trimethoprim; Translations: [sulfamethoxazole-tr imethoprim] Drug Allergy 02-24-20 19 [facility] (1 source) Bee/Wasp/Ant venom Allergy to substance [facility] (1 source) Tape, plastic Allergy to substance [facility] (3 sources) Sulfamethoxazole Drug Allergy 07-15-19 23 [facility] Work Phone: (3 sources) Trimethoprim Drug Allergy 07-15-19 23 [facility] Work Phone: (4 sources) Sulfamethoxazole / Trimethoprim Drug Allergy [facility] Work Phone: (1 source) Sulfamethoxazole Drug Allergy 07-15-19 23 [facility] (1 source) Trimethoprim Drug Allergy 07-15-19 [facility] Medications Current Medications Medication Drug Class(es) [...] [degF] MD CELIO AGUILERA MD Work Phone: [facility] [employer] Work Phone: 01-15-2023 21:14-0400 Diastolic blood pressure 64 mm[Hg] MD CELIO AGUILERA MD Work Phone: [facility] [employer] Work Phone: 01-15-2023 21:14-0400 Heart rate 57 /min MD CELIO AGUILERA MD Work Phone: [facility] [employer] Work Phone: 01-15-2023 21:14-0400 Respiratory rate 16 /min MD CELIO AGUILERA MD Work Phone: [facility] [employer] Work Phone: 01-15-2023 21:14-0400 SaO2% (BldA) [Mass fraction] 99 % MD CELIO AGUILERA MD Work Phone: [facility] [employer] Work Phone: 01-15-2023 21:14-0400 Systolic blood pressure 118 mm[Hg] MD CELIO AGUILERA MD Work Phone: [facility] [employer] Work Phone: 01-15-2023 18:36-0400 Body height 175.26 cm MD CELIO AGUILERA MD Work Phone: [facility] [employer] Work Phone: 01-15-2023 18:36-0400 Body mass index (BMI) [Ratio] 20.2 kg/m2 MD CELIO AGUILERA MD Work Phone: [facility] [employer] Work Phone: 01-15-2023 18:36-0400 Body weight 62.1 kg MD CELOI AGUILERA MD Work Phone: [facility] [employer] Work Phone: 01-04-2023 09:58-0400 Body height 175.26 cm Shelley Weiss CNP Work Phone: [facility] Work Phone: Encounters Encounter Date Encounter Type Care Provider Facility Start: 01-15-2023 End: 01-16-2023 Emergency department patient visit CELIO WILLY Facility:[facility] Start: 01-15-2023 End: 01-15-2023 Emergency department patient visit MD CELIO AGUILERA MD Work Phone: [facility] Start: 01-04-2023 Office outpatient visit 15 minutes LILIBETH NEW M.D. Work Phone: [facility] Work Phone: Start: 12-26-2022 End: 12-26-2022 ambulatory LILIBETH NEW Facility:[facility] Start: 12-26-2022 Evaluation and management of inpatient JODY [facility] Ambulatory Start: 12-26-2022 End: 12-26-2022 ambulatory NO FAMILY DOCTOR [facility] Work Phone: Start: 12-26-2022 End: 12-26-2022 Patient encounter procedure NO DOCTOR [facility] Cardiopulmonary Ther Start: 11-19-2022 Office outpatient ne w 30 minutes LILIBETH NEW M.D. Work Phone: [facility] Work Phone: Start: 11-08-2022 ambulatory LILIBETH NEW [facility] Start: 11-05-2022 End: 11-05-[address] [facility] Start: 10-16-2022 End: 11-12-2022 ambulatory MINDI PUENTES NP [facility] Start: 10-02-2022 End: 10-02-[address] [facility] Start: 08-20-2022 End: 08-20-2022 ambulatory CELIO [place] [facility] Start: 08-20-2022 End: 08-20-[address] [facility] Start: 08-01-2022 ambulatory [facility]EL[facility] Start: 07-18-2022 End: 07-18-2022 ambulatory JORGE L CASEY [facility] Start: 07-15-2022 End: 07-15-2022 Emergency department patient visit None PCP Facility:[facility] Start: 07-15-2022 End: 07-15-2022 Emergency department patient visit DO None PCP [facility] Start: 04-10-2022 End: 04-10-2022 ambulatory RABIA MCKNIGHT Facility:[facility] Start: 04-10-2022 End: 04-10-2022 Patient encounter procedure Rabia Mcknight MD Work Phone: [facility] Procedures Date Procedure Procedure Detail Performing [...] Encounter for problem [facility] Work Phone: Start: 07-15-2022 [facility] Work Phone: Start: 03-08-2022 Influenza vaccination [facility] Start: 07-08-2021 DEPRESSION ASSESSMENT DEPRESSION ASSESSMENT [facility] Start: 03-08-2021 Influenza vaccination Flu vaccine (#1) [facility] Start: 01-28-2008 Urine microalbumin profile DTAP,TDAP,TD (1 - Tdap) [facility] Start: 2007 HEPATITIS C SCREENING HEPATITIS C SCREENING [facility] Start: 2007 HIV SCREENING HIV SCREENING [facility] Start: 2001 Adult depression screening assessment DEPRESSION SCREENING [facility] Start: 2001 COVID-19 Vaccine (1) [facility] Start: 1995 PNEUMOCOCCAL (1 - PCV) PNEUMOCOCCAL (1 - PCV) [facility] Start: 1994 COVID-19 VACCINE (1) COVID-19 VACCINE (1) [facility] Start: 1989 COVID-19 VACCINE (#1) COVID-19 VACCINE (#1) [facility] Start: 1989 HEPATITIS B (1 of 3 - 3-dose series) HEPATITIS B (1 of 3 - 3-dose series) [facility] Nitrite [Presence] i n Urine [facility] Work Phone: Patient Education Raya sheriff [facility] Work Phone: Patient referral Lai nguyen [facility] Work Phone: pH of Urine [facility] Work Phone: Specific gravity of Urine [facility] Work Phone: [facility] Payers Date Payer Category Payer Self-pay [id number] 2014 Unknown [id number] 1989 Unknown [id number] 2.. [id number] 1989 Unknown [id number] 2.. [id number] 1989 Unknown [id number] 2.. [id number] 1989 Unknown [id number] 2.. [id number] 1989 Unknown [id number] 2. [id number] Unknown [id number] 2.16. [id number] Unknown [id number] 2.16.8 [id number] Unknown [id number] 2.16.8 [id number] Unknown [id number] 2.16.8 [id number] Unknown [id number] 2.16.8 [id number] Unknown [id number] 2.16.8 [id number] Social History Date Type Detail Facility Start: 05-17-2021 Tobacco smoking status IAIS Never smoked tobacco [facility] Work Phone: Start: 05-17-2021 End: 04-06-2022 Alcohol intake Current drinker of alcohol (finding) [facility] Work Phone: Start: 05-17-2021 History SDOH Alcohol Comment occasional [facility] Work Phone: Start: 1990 Sex Assigned At Not on file [facility] Work Phone: Start: 10-21-2021 End: 04-10-2022 Exposure to SARS-CoV-2 (event) Not sure [facility] Work Phone: Start: 07-15-2022 End: 01-15-2023 Tobacco smoking consumption unknown (finding) [facility] Start: 1990 Sex Assigned At Male [facility] Start: 02-23-2019 End: 04-06-2022 Tobacco smoking status NHIS Occasional tobacco smoker [facility] Start: 02-23-2019 End: 12-07-2019 Tobacco use and exposure User of smokeless tobacco [facility] Start: 04-06-2022 Tobacco use and exposure Former smokeless tobacco user [facility] Start: 09-30-2022 History SDOH Alcohol Comment Ocassionally [facility] Start: 07-15-2022 Current Every day smoke r [facility] [employer] Phone: Start: 07-15-2022 Yes Raya sheriff [facility] Work Phone: Sex Assigned At [facility] [employer] Phone: Alcohol intake Denies alcohol use [facility] Work Phone: History of tobacco use Patient is a current smoker, smokes every day [facility] Work Phone: Details of drug misuse behavior Denies Drug Use [facility] [employer] Phone: Start: 01-15-[address] [facility] [employer] Phone: Mental Status Date Assessment Result Facility 01-15-2023 [facility] function [facility] Work Phone: 07-15-2022 Cognitive function Appropriate;[facility] [employer] Phone: Clinical Notes 05-26-2021 to 01-04-2023 Note Date & Type Note Facility [facility] [employer] Phone: 1(732) 343-978505-15-2023 Evaluation note* Date Code Description Provider 11/19/2022 M79.641 Pain in right hand Lilibeth New M.D. 11/19/2022 R20.2 Paresthesia of skin Lilibeth New M.D. [facility] Work Phone: 1(372) 954-597505-08-2023 [facility] [address] [place] [address] PT OP Discharge Summary : [id number] Signed Name: SWETHA CODY MRUN: [id number] : 1990 Age/Sex: 32 / M Physician: [...] questions or concerns. Dictated By:Darinel HERNANDEZ DPT [id number] Dictated Date/Time:11/12/22947 Transcribed Date/Time:11/12/2294711/12/[address] [place], [place] 1176801-08-2023 WBC Auto (Urine sed) [#/Area]Urine WBCJanuary 2022 3:63wc3-2 /HPFUnless otherwise noted, urine microscopic evaluation is normal.[facility] [id number] [address] [place] [address] Work Phone: Comment on above:Unless otherwise noted, urine microscopic evaluation is normal.04-10-2022 NoteHNO ID: [id number] Author: Rabia Mckngiht MD Service: ? Author Type: Physician Type: Progress Notes Filed: 04/10/2022 10:56 AM Note Text: [facility] UROLOGY CONSULT PATIENT CLINIC NOTE PATIENT INFO: Swetha Cody (32 year old) Referred by: Cristina Langley [address] [facility] [id number] 04/10/2022 UROLOGY DIAGNOSES: 1. Testicular pain, right [...] chance of pain improvement (more content not included)...[facility] 04-10-2022 History of Present illness Narrative* Rabia Mcknight MD - 04/10/2022 9:54 AM EDT Images from the original note were not included. [facility] UROLOGY CONSULT PATIENT CLINIC NOTE PATIENT INFO: Swetha Cody (32 year old) Referred by: Cristina Langley [address] [facility] [id number] 04/10/2022 UROLOGY DIAGNOSES: 1. Testicular pain, right [...] Dr. Cristina Langley [address] [facility] [id number] for an opinion regarding testicular pain and my final recommendations will be communicated back to the requesting physician by way of shared medical record or letter via US mail. [facility] NoteHNO ID: [id number] Author: Marija Pettit LPN Service: ? Author [...] tolerated the procedure well. Plan: Appointment with Cristina.[facility]-30-2022 NoteHNO ID: [id number] Author: Cristina Langley PA-C Service: ? Author Type: Physician Tandem Mill Sticker Type: Progress Notes Filed: 05/16/2022 4:20 PM Note Text: [facility] [...] set him up with that appointment ph [phone] I spent a total of 30 minutes on the date of the service which included preparing to see the patient, face to face patient care, completing clinical documentation, obtaining and/or reviewing separately obtained h (more content not included)...[facility]09-30-2022 Miscellaneous Notes* Telephone Encounter - Afia Lockhartjesse Gonzalez - 04/06/2022 12:25 PM EDT Pt confirmed his appt with Dr. Mcknight in [place] [facility] 04/10/22 @ 10:15am. Clar[place] documented in this encounterK[facility]-30-20[facility] History of Present illness Narrative* Marija Pettit [...] from the original note were not included. [facility] [...] set him up with that appointment ph [phone] I spent a total of 30 minutes on the date of the service which included preparing to see the patient, face to face patient care, completing clinical documentation, obtaining and/or reviewing separately obtained history, performing a medically appropriate examination, counseling and educating the pat ient/family/caregiver, ordering medications, tests, or procedures, and care coordination. ERIBERTO Wood, [place], SIXTO documented in this encounterK[facility]04-26-2022 NoteHNO ID: [id number] Author: Nacho Hernandez APRN.HANG Service: ? Author [...] agrees with plan of care. Nacho Hernandez APRN.[facility]ANGA[facility]04-26-2022 History of Present illness Narrative* Nacho Hernandez [...] care. Nacho Hernandez APRN.HANG documented in this encounterK[facility]12-08-2021 NoteHNO ID: [id number] Author: Anaya Avila PA-C Service: ? Author Type: Physician [employer]icker Type: Progress Notes Filed: 06/14/2021 12:22 PM [...] have confirmed and edited as necessary, the [facility] Review of Systems All other systems [...] month ago. Results will be released to [facility] in 24-48 hours. Discussed quarantine, social distancing, hand washing/proper hygiene. Rest, fluids, OTC medications discussed. - 2019 CORONAVIRUS Pt advised to see PCP if symptoms persist or progress. Reviewed red flags with patient and when to seek care sooner. The patient indicates understanding of these issues and agrees with the plan. ELIDIA [facility]11-19-2021 Hospital Discharge instructions Patient Education 05/26/2021 15:35:11 COVID-19 Prevent the Spread of COVID-19 If You Are Sick (11/24/2019) (CUSTOM) Prevent the Spread of COVID-19 If You Are Sick Accessible version: https://www.cdc.gov/coronavirus/2019-ncov/du-urb-eai-sick/kuedm-xwci-yglt.html If you are sick with COVID-19 or [...] Animals if you have questions about pets: https://www.cdc.gov/coronavirus/2019ncov/faq.html#FCRSF17gytceim Monitor your symptoms. Common symptoms of COVID-19 [...] and need to call 911, notify the rotary drill rig operator that you have or think you [...] clean your hands with an alcohol-based hand horseradish grinder that contains at least 60% alcohol. Clean your hands often. Wash your hands often with soap and water for at least 20 seconds. This is especially important after blowing your nose, coughing, or sneezing; going to the bathroom; and before eating or preparing food. Use hand horseradish grinder if soap and water are not available. Use an alcohol-based hand horseradish grinder with atleast 60% alcohol, covering all surfaces [...] and water or put them in the medication manager. Clean all high-touch surfaces everyday. Clean and [...] or body fluids on them. Use household engineering faculty member and disinfectants. Clean the area or item [...] in consultation with your healthcare provider and formerly [facility] and local health departments. Local decisions depend on local circumstances. cdc.gov/coronavirus Follow Up Care 05/26/2021 15:17:51 With:Call Physician Referral Address:Unknown When:2-4 days [facility] Evaluation + Plan note No data available for this section [facility] Evaluation note* Diagnosis Cervical radiculopathy- Primary Brachial neuritis or radiculitis nos documented in this encounter [facility] Work Phone: Evaluation note* Diagnosis Upper back pain- Primary documented [facility] [place] [facility]* Diagnosis Testicular pain, right- Primary Unspecified disorder of male genital organs documented in this encounter [facility] note* Diagnosis Pain in right testicle- Primary Unspecified disorder of male genital organs documented in this encounter [facility] noteNo assessment information availableGlenbeigh Hospital Work Phone: Evaluation note* Description No Information Available [facility] Work Phone: Hospital Discharge instructions* Instructions* Robert [...] sent through Care Everywhere. * Cervical Pain (Dominican) documented in this [facility] Work Phone: Summary Purpose Family [...] Diagnoses Cervical radiculopathy Robert Roberts MD [address] [place] [address] [facility] [id number] [place] [address] Referral ID Status Reason Start Date Expiration Date V isits Requested Visits Authorized [id number] [facility]ty Services Required 05/17/2021 05/17/2022 1 1 Scheduling Instructions [facility] [place] [address] [place] [address] Specialty Diagnoses / Procedures [facility]erred To Contact [facility] Diagnoses C[place] [address] [place] [address] [facility] Hao Avalos [address] [address] Referral ID Status Reason Start Date Expiration Date V isits Requested Visits Authorized [id number] [facility] Services Required 05/17/2021 05/17/2022 1 1 Scheduling Instructions [facility] [address] [place] [address] Dr Zamora [address] [place] [address] Description No Information Available Medications Administered Section [...] DATE CREATED AUTHOR AUTHOR'S ORGANIZ ATION 05/19/2021 [facility] DATE CREATED AUTHOR AUTHOR'S ORGANIZ ATION 05/28/2021 [facility] ([place] DATE CREATED AUTHOR AUTHOR'S ORGANIZ ATION 04/11/2022 [facility] DATE CREATED AUTHOR AUTHOR'S ORGANIZ ATION 05/17/2022 [facility] DATE CREATED AUTHOR AUTHOR'S ORGANIZ ATION 11/06/2022 [facility] DATE CREATED AUTHOR AUTHOR'S ORGANIZ ATION 11/09/2022 [facility] DATE CREATED AUTHOR AUTHOR'S ORGANIZ ATION 12/31/2022 [facility] DATE CREATED AUTHOR AUTHOR'S ORGANIZ ATION 12/31/[address] [facility] DATE CREATED AUTHOR AUTHOR'S ORGANIZ ATION 01/16/2023 [facility] Reason for Visit (unrecogniz ed section and content) Specialty Diagnoses / Procedures Referred By Alicia taylor Referred To Contact [facility] Diagnoses RIGHT SIDE PAIN AND TESTICULARE PAIN Procedures CARE, TEST , TREAT Self [facility] [address] [place] [address] Referral ID Status Reason Start Date Expiration Date Visits Requested Visits Authorized [id number] Authorized Patient Cleared - Qualified HCAP/501/FA 03/30/2022 [...] or prosecute any alcohol or drug abuse patient.[facility] the event this information is protected by the Federal Confidentiality of Alcohol and Drug Abuse Patient Records regulations: The Federal rules restrict any use of the information to criminally investigate or prosecute any alcohol or drug abuse patient.[facility]bleIn the event this information is protected by the Federal Confidentiality of Alcohol and Drug Abuse Patient Records regulations: The Federal rules restrict any use of the information to criminally investigate or prosecute any alcohol or drug abuse patient.[facility]ble[facility] the event this information is protected by the Federal Confidentiality of Alcohol and Drug Abuse Patient Records regulations: The Federal rules restrict any use of the information to criminally investigate or prosecute any alcohol or drug abuse patient.[facility] Care Teams (unrecognized sec tion and content) [...] BE BASED ON THE PRIMARY CLINICAL RECORDS. [facility] [facility]. provides no warranty or guarantee of the accuracy or completeness of information in this document.
== END 2023-08-07 10:10 | disposition left against medical advice (07) ==
LOC: ED 10:42
DX: R69 Illness, unspecified (principal); Z53.21 Procedure and treatment not carried out due to patient leaving prior to being seen by health care provider

== ENCOUNTER 2023-09-04 13:41 | Emergency (ER) | payer MEDICAID, SELFPAY ==
[2023-09-04 13:42] VITALS: BP 139/79; PULSE 79; RESP 18; TEMP 36.1; O2SAT 98; BMI 22.7
--- NOTE | 2023-09-04 14:40 | EX.ED.UPPERE ---
HPI History of Present Illness Chief Complaint: Wound Informant: patient Narrative Narrative: Patient 33-year-old male with history of recurrent bursitis of the right elbow presenting with increased pain and swelling and redness of his right elbow. Is been progressing over the past week. He has followed up with Ortho through with orthopedics however he does not recall who he saw. He recently finished a course of doxycycline for this (14 days). He thinks his last dose was anywhere between 1 to 2 weeks ago. He over the past week has had progressive swelling, redness and pain of his elbow. He does work with [employer] and has a lot of repetitive movement of his arm. He denies any fever, night sweats or other systemic symptoms. He is concerned because it seems that whenever he goes off antibiotics his swelling gets worse. Notes that the last time he was in the ER they took 10 cc of fluid off and it felt much better. No other complaints or concerns at this time. PFSH PFSH Medical History Back pain Home Medications amoxicillin 875 mg-potassium clavulanate 125 mg tablet 1 tab PO BID #14 tabs 09/04/23 [Rx Last Taken Unknown] doxycycline monohydrate 100 mg capsule 100 mg PO BID #14 CAPSULES 09/04/23 [Rx Last Taken Unknown] ibuprofen 600 mg tablet 600 mg PO Q6H PRN PRN pain #20 TABLETS 09/04/23 [Rx Last Taken Unknown] oxycodone-acetaminophen 5 mg-325 mg tablet 1 tab PO Q6H PRN PRN Pain 3 days #12 TABLETS 09/04/23 [Rx Last Taken Unknown] Allergy/AdvReac Type Severity Reaction Status Date / Time adhesive tape Allergy Rash Verified 09/04/23 13:43 sulfamethoxazole Allergy Rash Verified 09/04/23 13:43 [From Bactrim] trimethoprim [From Bactrim] Allergy Rash Verified 09/04/23 13:43 Surgical History Hx of cholecystectomy Hx of lymph node excision Social History Smoking Status: Current every day smoker tobacco type: cigarettes ROS ROS ED Constitutional Constitutional ED: Denies chills or fever(s) Cardiovascular Cardiovascular: Denies chest pain Respiratory/Chest Respiratory/Chest: Denies cough Gastrointestinal Gastrointestinal: Denies nausea or vomiting Musculoskeletal Musculoskeletal: Reports other Details: right elbow pain and swelling Integumentary Denies rash Neurologic Neurologic: Denies headache(s) Hematologic/Lymphatic Hematologic/Lymphatic: Denies easy bleeding or easy bruising EXAM Physical Exam Const Vital Signs: 09/04/23 13:42 Temperature 96.9 F L Temperature Source Temporal Pulse Rate 79 Respiratory Rate 18 Blood Pressure 139/79 H Blood Pressure Mean 99 Pulse Ox 98 Oxygen Delivery Method Room Air Positive well nourished and well developed General Appearance ED: well developed and NAD HEENT Reports moist mucous membranes Eyes PERRL Neck supple Chest Wall inspection of chest normal Resp normal respiratory effort and clear to auscultation bilaterally Cardio regular rate and regular rhythm GI non-tender and non-distended Extremity Extremity Narrative: Swelling and fluctuance of the right posterior elbow consistent with bursitis. There is overlying warmth and mild erythema but no cellulitic changes. Associated decreased range of motion of the right elbow. No associated lymphangitic streaking or drainage appreciated. Neuro oriented x3 Sensorium / Orientation: alert Motor Exam: muscle tone normal throughout Psych mental status grossly normal Skin Skin Narrative: Mild erythema over the right elbow MDM MDM MDM Narrative Medical decision making narrative: Patient is evaluated for worsening pain and swelling of his right elbow. He is right-hand dominant. Physical exam is consistent with a bursitis. There is no overlying cellulitic changes but is mildly red at the elbow which I think is more from inflammatory changes versus a secondary cellulitis. Differential includes bursitis, septic bursitis or septic elbow. He does not have short arc range of motion pain. X-ray of the elbow obtained reviewed by myself as well as radiology is consistent with a bursitis with soft tissue swelling with no acute joint involvement appreciated. Given the recurrent nature and the fact that patient already had a prior positive synovial fluid culture, lab work including CBC, BMP, CRP, ESR and repeat aspirate of the bursal fluid is obtained. Lab work is large unremarkable including normal white blood cell count, normal CRP and normal ESR. Patient is given a dose of Toradol and oxycodone in the ER for pain control. Fluid is negative on Gram stain and and does show 2.484 times send at the third white blood cells with some red blood cells. Case is discussed with Ortho electronic security specialist, Dr. Yuan. Reviewed the patient's prior fluid culture as well as lab results from today. He recommends placing the patient on a week of Augmentin as well as doxycycline and follow-up outpatient. Patient is agreeable with this plan of care. At this time given that he does not have any systemic symptoms and his white blood cell count is actually improving on his synovial fluid sample I do not think he needs admission for IV antibiotics. Patient agreeable plan of care. Did discuss smoking cessation as well with the patient. Instructed to continue NSAIDs and wear Mynor wrap for compression as well to help with this bursitis. History & Record Review Additional record(s) reviewed:: Prior labs Lab Data Attestation: I reviewed the patient's lab results. Lab results narrative: Laboratory Results - last 24 hr 09/04/23 09/04/23 15:05 15:30 WBC 6.5 RBC 4.84 Hgb 15.6 Hct 44.9 MCV 92.8 MCH 32.2 H MCHC 34.7 RDW Std Deviation 38.5 RDW Coeff of Jenniffer 11.3 L Plt Count 202 MPV 9.7 Immature Gran % (Auto) 0.300 Neut % (Auto) 65.8 Lymph % (Auto) 25.9 [place] % (Auto) 6.7 Eos % (Auto) 0.8 Baso % (Auto) 0.5 Absolute Neuts (auto) 4.3 Absolute Lymphs (auto) 1.67 Nucleated RBC % 0 ESR < 1 Sodium 139 Potassium 3.9 Chloride 109 H Carbon Dioxide 26.0 Anion Gap 4 L BUN 17 Creatinine 1.07 Estim Creat Clear Calc 96.04 Est GFR (MDRD) Af Amer 101 Est GFR (MDRD) Non-Af 84 BUN/Creatinine Ratio 15.9 Glucose 104 Calcium 8.9 C-React Prot Ext Range < 2.90 Synovial WBC 2.4840 H Synovial RBC 0.093 H Synovial Tot Cell Ct 2.5200 H Synov Polynuclear WBCs 1.039 Synov Mononuclear WBCs 1.445 Synovial Polynuclear % 41.9 Synovial Mononuclear % 58.1 Procedures Other Procedures Procedure(s): Aspiration right elbow bursa Area is cleansed with Betadine. Once this is allowed to dry fully the proximal aspect is anesthetized with 1% lidocaine. Once adequate analgesia is achieved a 18-gauge needle used to aspirate a total of 25 cc of serosanguineous fluid. Patient tolerated procedure well. Minimal bleeding at the site. Approximately 5 cc of lidocaine injected into the bursa once aspiration was complete. Sterile technique performed. A Band-Aid then applied with no further bleeding leakage of fluid and Mynor wrap applied. Patient tolerated procedure well with no immediate complications Discharge Plan Triage Chief Complaint: Wound ED Provider: Carey Hannon Dx/Rx/DC Orders Clinical Impression: Bursitis of right elbow Instructions: ED Bursitis Prescriptions: New amoxicillin-pot clavulanate 875-125 mg tablet 1 tab PO BID Qty: 14 0RF doxycycline monohydrate 100 mg capsule 100 mg PO BID Qty: 14 0RF oxycodone-acetaminophen 5-325 mg tablet 1 tab PO Q6H PRN PRN (Reason: Pain) 3 Days Qty: 12 0RF ibuprofen 600 mg tablet 600 mg PO Q6H PRN PRN (Reason: pain) Qty: 20 0RF Stand Alone Forms: ED Work / School Excuse Primary Care Provider: Care Physician,No Primary Referrals: Sergei Yuan MD [Med Staff - Active Staff] - As soon as possible Care Physician,No Primary [Primary Care Provider] - Disposition Disposition: Home, Self Care
--- NOTE | 2023-09-04 14:53 | RAD_ITS ---
STUDY: X-RAY - RIGHT ELBOW REASON FOR EXAM: Male, 33 years old. Pain, recurrent bursitis TECHNIQUE: 3 view(s) of the elbow. COMPARISON: Comparison is made with prior study dated January 27, 2024. FINDINGS: Normal visualized humerus, radius and ulna. Normal radiocapitellar and ulnotrochlear articulations. Soft tissue swelling overlying the posterior olecranon process suggestive of bursitis. RAD/Elbow min 3 Views IMPRESSION: Soft tissue swelling overlying the posterior aspect of the olecranon process suggestive of a bursitis. Electronically Signed: Manuel Emery MD at 15:01 EST ,
[2023-09-04 15:24] LABS: Erythrocyte Sedimentation Rate < 1 mm/hr (0-20)
[2023-09-04 15:27] LABS: Absolute Lymphocyte Count 1.67 X10^3/uL (0.83-4.51); Absolute Neutrophil Count 4.3 X10^3/uL (2.0-7.7); Basophil# 0.03 X10^3/uL; Basophil% 0.5 % (0-1); Eosinophil# 0.05 X10^3/uL; Eosinophils% 0.8 % (0-5); Hematocrit 44.9 % (40-54); Hemoglobin 15.6 g/dL (13.0-16.5); Lymphocyte # 1.67 X10^3/ul (0.83-4.51); Lymphocyte % 25.9 % (19-41); Mean Corp Hgb Conc 34.7 g/dL (32-36); Mean Corpuscular Hgb 32.2 pg (27.0-32.0); Mean Corpuscular Volume 92.8 fL (80-94); Mean Platelet Vol. 9.7 fl (6.2-12.0); Monocyte# 0.43 X10^3/uL; Monocyte% 6.7 % (0-10); NRBC Flagged by Analyzer 0 % (0-5); Neutrophil # 4.25 X10^3/uL (2.7-7.7); Neutrophil % 65.8 % (47-70); Platelet Count 202 K/mm3 (150-450); RBC Distribution Width CV 11.3 % (11.6-14.6); RBC Distribution Width SD 38.5 fl (35.1-43.9); Red Blood Count 4.84 M/mm3 (4.6-6.2); White Blood Count 6.5 K/mm3 (4.4-11.0)
[2023-09-04 15:40] LABS: Pathologist Comment May follow
[2023-09-04 15:46] VITALS: BP 139/88; PULSE 76; RESP 15; TEMP 36.2; O2SAT 99
[2023-09-04] MEDS: oxyCODONE 5 MG Tablet PO (16:02)
[2023-09-04] MEDS: Ketorolac 15 MG/ML Vial IV (16:02)
[2023-09-04] MEDS: Lidocaine 1% (20 ml mdv) 20 ML Vial INFILT (16:02)
[2023-09-04 16:03] LABS: Anion Gap 4 (5-15); BUN 17 mg/dL (7-18); BUN/Creat Ratio 15.9 RATIO (10-20); CRP < 2.90 mg/L (0.0-3.0); Calcium,Total 8.9 mg/dL (8.5-10.1); Chloride 109 mmol/L (98-107); Creatinine, Serum 1.07 mg/dL (0.70-1.30); EST Glomerular Filtration Rate 84 mL/min (>60); Est Glom Filt Rate - Afr Amer 101 mL/min (>60); Estimated Creatinine Clearance 96.04 ml/min; Glucose 104 mg/dL (74-106); Potassium 3.9 mmol/L (3.5-5.1); Sodium Level 139 mmol/L (136-145)
[2023-09-04 16:35] LABS: RBC /Synovial Fluid 0.093 10^6/uL (0); Synovial Fld Mononuclear WBC # 1.445 10^3/ul; Synovial Fld Mononuclear WBC % 58.1 %; Synovial Fld Polynuclear WBC # 1.039 10^3/uL; Synovial Fld Polynuclear WBC % 41.9 %
[2023-09-04] MEDS: Doxycycline 100 MG CAPSULE PO (17:35)
[2023-09-04] MEDS: Amox/Clavulanate 875 MG Tablet PO (17:35)
[2023-09-04 17:37] VITALS: BP 112/79; PULSE 61; RESP 12; TEMP 36.8; O2SAT 100
[2023-09-04 18:17] LABS: AUTO B FLUID DILUENT BKGD CT WBC <0.1 RBC <0.01 (W<.1,R<.01); Appearance /Synovial Fluid Cloudy (CLEAR); CRYSTALS, BODY FLUID NO CRYSTALS SEEN; Color / Synovial Fluid Red (Pale Yellow); Lymph 13 %; Neutrophil 38 % (0-25); Other Cell /Synovial Fluid 49 %; Source / Synovial Fluid RIGHT ELBOW; Source- Body Fluid SYNOVIAL
[2023-09-04 18:18] LABS: Body Fluid QC Type(s) BF2Q,BF3Q
--- OUTSIDE RECORDS SUMMARY | 2023-09-05 00:13 | XMS RPT_ITS | CCD ---
Author Name Unknown Address [address] [place] [address] Organization [facility] Care Team Providers Care Cessation Systems Outreach Specialist Name Role Phone RIDER, MARZENA Lepe Unavailable [...] Unavailcourtney Bashir MD, MD Cevallos Emergency Provider CELIO AGUILERA Referring Unavailable CELIO AGUILERA Attending [...] Provider MD Analia Taylor MD Emergency Provider ROSIE CLOTH PRINTING UTILITY WORKER, TYLYN R Attending Unavailable ROSIE CLOTH PRINTING UTILITY WORKER, TYLYN R Referring Unavailable PCP, None Primary Care Unavailable CELIO AGUILERA Attending Unavailable ROSIE CLOTH PRINTING UTILITY WORKERMINDI R Attending Unavailable PCP, None Primary Care Unavailable CELIO AGUILERA Primary Care Unavailable Analia Taylor MD Attending Unavailable PCP, None Primary Care Unavailable Mart Bashir MD Attending Unavailable Allergies Allergy Classification Reported Allergen(s) Allergy Type Date of Onset Reaction(s) Facility (8 sources) Sulfamethoxazole / Trimethoprim; Translations: [sulfamethoxazole-tr imethoprim] Drug Allergy 02-24-20 19 [facility] (1 source) Bee/Wasp/Ant venom Allergy to substance [facility] (1 source) Tape, plastic Allergy to substance [facility] (3 sources) Sulfamethoxazole Drug Allergy 07-15-19 23 [facility] Work Phone: (3 sources) Trimethoprim Drug Allergy 07-15-19 23 [facility] Work Phone: (4 sources) Sulfamethoxazole / Trimethoprim Drug Allergy [facility] Work Phone: (1 source) Sulfamethoxazole Drug Allergy 07-15-19 23 [facility] (1 source) Trimethoprim Drug Allergy 07-15-19 [facility] Medications Current Medications Medication Drug Class(es) [...] [degF] MD CELIO AGUILERA MD Work Phone: [facility] Work Phone: 01-15-2023 21:14-0400 Diastolic blood pressure 64 mm[Hg] MD CELIO AGUILERA MD Work Phone: [facility] Work Phone: 01-15-2023 21:14-0400 Heart rate 57 /min MD CELIO AGUILERA MD Work Phone: [facility] Work Phone: 01-15-2023 21:14-0400 Respiratory rate 16 /min MD CELIO AGUILERA MD Work Phone: [facility] Work Phone: 01-15-2023 21:14-0400 SaO2% (BldA) [Mass fraction] 99 % MD CELIO AGUILERA MD Work Phone: [facility] Work Phone: 01-15-2023 21:14-0400 Systolic blood pressure 118 mm[Hg] MD CELIO AGUILERA MD Work Phone: [facility] Work Phone: 01-15-2023 18:36-0400 Body height 175.26 cm MD CELIO AGUILERA MD Work Phone: [facility] Work Phone: 01-15-2023 18:36-0400 Body mass index (BMI) [Ratio] 20.2 kg/m2 MD CELIO AGUILERA MD Work Phone: [facility] Work Phone: 01-15-2023 18:36-0400 Body weight 62.1 kg MD CELIO AGUILERA MD Work Phone: [facility] Work Phone: 01-04-2023 09:58-0400 Body height 175.26 cm Shelley Weiss CNP Work Phone: [facility] Work Phone: Encounters Encounter Date Encounter Type Care Provider Facility Start: 01-15-2023 End: 01-16-2023 Emergency department patient visit CELIO WILLY Facility:[facility] Start: 01-15-2023 End: 01-15-2023 Emergency department patient visit MD CELIO AGUILERA MD Work Phone: [facility] Start: 01-04-2023 Office outpatient visit 15 minutes LILIBETH NEW M.D. Work Phone: [facility] Work Phone: Start: 12-26-2022 End: 12-26-2022 ambulatory LILIBETH NEW Facility:[facility] Start: 12-26-2022 Evaluation and management of inpatient [facility] Start: 12-26-2022 End: 12-26-[address] [facility] Work Phone: Start: 12-26-2022 End: 12-26-2022 Patient encounter procedure NO DOCTOR [facility] Cardiopulmonary Ther Start: 11-19-2022 Office outpatient ne w 30 minutes LILIBETH NEW M.D. Work Phone: [facility] Work Phone: Start: 11-08-2022 ambulatory LILIBETH NEW [facility] Start: 11-05-2022 End: 11-05-2022 ambulatory [facility] Start: 10-16-2022 End: 11-12-2022 ambulatory MINDI PUENTES NP [facility] Start: 10-02-2022 End: 10-02-2022 ambulatory [facility] Start: 08-20-2022 End: 08-20-2022 ambulatory CELIO TACOMA [facility] Start: 08-20-2022 End: 08-20-2022 ambulatory [facility] Start: 08-01-2022 ambulatory CELIO [facility] Start: 07-18-2022 End: 07-18-2022 ambulatory JORGE L CASEY [facility] Start: 07-15-2022 End: 07-15-2022 Emergency department patient visit None PCP Facility:[facility] Start: 07-15-2022 End: 07-15-2022 Emergency department patient visit DO None PCP [facility] Start: 04-10-2022 End: 04-10-2022 ambulatory RABAI MCKNIGHT Facility:[facility] Start: 04-10-2022 End: 04-10-2022 Patient encounter procedure Rabia Mcknight MD Work Phone: [facility] Procedures Date Procedure Procedure Detail Performing [...] Encounter for problem [facility] Work Phone: Start: 07-15-2022 [facility] Work Phone: Start: 03-08-2022 Influenza vaccination [facility] Start: 07-08-2021 DEPRESSION ASSESSMENT DEPRESSION ASSESSMENT [facility] Start: 03-08-2021 Influenza vaccination Flu vaccine (#1) [facility] Start: 01-28-2008 Urine microalbumin profile DTAP,TDAP,TD (1 - Tdap) [facility] Start: 2007 HEPATITIS C SCREENING HEPATITIS C SCREENING [facility] Start: 2007 HIV SCREENING HIV SCREENING [facility] Start: 2001 Adult depression screening assessment DEPRESSION SCREENING [facility] Start: 2001 COVID-19 Vaccine (1) [facility] Start: 1995 PNEUMOCOCCAL (1 - PCV) PNEUMOCOCCAL (1 - PCV) [facility] Start: 1994 COVID-19 VACCINE (1) COVID-19 VACCINE (1) [facility] Start: 1989 COVID-19 VACCINE (#1) COVID-19 VACCINE (#1) [facility] Start: 1989 HEPATITIS B (1 of 3 - 3-dose series) HEPATITIS B (1 of 3 - 3-dose series) [facility] Nitrite [Presence] i n Urine [facility] Work Phone: Patient Education Raya sheriff [facility] Work Phone: Patient referral Lai nguyen [facility] Work Phone: pH of Urine [facility] Work Phone: Specific gravity of Urine [facility] Work Phone: [facility] Payers Date Payer Category Payer Self-pay [id number] 2014 Unknown [id number] 1989 Unknown [id number] 2.. [id number] 1989 Unknown [id number] 2.. [id number] 1989 Unknown [id number] 2.. [id number] 1989 Unknown [id number] 2.. [id number] 1989 Unknown [id number] 2. [id number] Unknown [id number] 2.16. [id number] Unknown [id number] 2.16.8 [id number] Unknown [id number] 2.16.8 [id number] Unknown [id number] 2.16.8 [id number] Unknown [id number] 2.16.8 [id number] Unknown [id number] 2.16.8 [id number] Social History Date Type Detail Facility Start: 05-17-2021 Tobacco smoking status ALIS Never smoked tobacco [facility] Work Phone: Start: 05-17-2021 End: 04-06-2022 Alcohol intake Current drinker of alcohol (finding) [facility] Work Phone: Start: 05-17-2021 History SDOH Alcohol Comment occasional [facility] Work Phone: Start: 1990 Sex Assigned At Not on file [facility] Work Phone: Start: 10-21-2021 End: 04-10-2022 Exposure to SARS-CoV-2 (event) Not sure [facility] Work Phone: Start: 07-15-2022 End: 01-15-2023 Tobacco smoking consumption unknown (finding) [facility] Start: 1990 Sex Assigned At Male [facility] Start: 02-23-2019 End: 04-06-2022 Tobacco smoking status NHIS Occasional tobacco smoker [facility] Start: 02-23-2019 End: 12-07-2019 Tobacco use and exposure User of smokeless tobacco [facility] Start: 04-06-2022 Tobacco use and exposure Former smokeless tobacco user [facility] Start: 09-30-2022 History SDOH Alcohol Comment Ocassionally [facility] Start: 07-15-2022 Current Every day smoke r [facility] Phone: Start: 07-15-2022 Yes Raya sheriff [facility] Work Phone: Sex Assigned At [facility] [employer] Phone: Alcohol intake Denies alcohol use [facility] Work Phone: History of tobacco use Patient is a current smoker, smokes every day [facility] Work Phone: Details of drug misuse behavior Denies Drug Use [facility] [employer] Phone: Start: 01-15-2023 Beer Raya sheriff [facility] Phone: Mental Status Date Assessment Result Facility 01-15-2023 [facility] Work Phone: 07-15-2022 Cognitive function Appropriate;[facility] Phone: Clinical Notes 05-26-2021 to 01-04-2023 Note Date & Type Note Facility [facility] [employer] Phone: 1(282) 704-783905-15-2023 Evaluation note* Date Code Description Provider 11/19/2022 M79.641 Pain in right hand Lilibeth New M.D. 11/19/2022 R20.2 Paresthesia of skin Lilibeth New M.D. [facility] Work Phone: 1(490) 245-161605-08-2023 [facility] [address] [place] [address] PT OP Discharge Summary : [id number] Signed Name: SWETHA CODY MRUN: [id number] : 1990 Age/Sex: 32 / M Physician: [...] questions or concerns. Dictated By:Darinel HERNANDEZ DPT [id number] Dictated Date/Time:11/12/22947 Transcribed Date/Time:11/12/2294711/12/[address] [place], [place] 5066901-08-2023 WBC Auto (Urine sed) [#/Area]Urine WBCJanuary 2022 3:32yr7-9 /HPFUnless otherwise noted, urine microscopic evaluation is normal.[facility] [id number] [address] [place] [address] Work Phone: Comment on above:Unless otherwise noted, urine microscopic evaluation is normal.04-10-2022 NoteHNO ID: [id number] Author: Rabia Mcknight MD Service: ? Author Type: Physician Type: Progress Notes Filed: 04/10/2022 10:56 AM Note Text: [facility] UROLOGY CONSULT PATIENT CLINIC NOTE PATIENT INFO: Swetha Cody (32 year old) Referred by: Cristina Langley [address] [facility] [id number] 04/10/2022 UROLOGY DIAGNOSES: 1. Testicular pain, right [...] chance of pain improvement (more content not included)...[facility] 04-10-2022 History of Present illness Narrative* Rabia Mcknight MD - 04/10/2022 9:54 AM EDT Images from the original note were not included. [facility] UROLOGY CONSULT PATIENT CLINIC NOTE PATIENT INFO: Swetha Cody (32 year old) Referred by: Cristina Langley [address] [facility] [address] 04/10/2022 UROLOGY DIAGNOSES: 1. Testicular pain, right [...] Dr. Cristina Langley [address] [facility] [address] for an opinion regarding testicular pain and my final recommendations will be communicated back to the requesting physician by way of shared medical record or letter via US mail. [facility]-2022 NoteHNO ID: [id number] Author: Marija Pettit LPN Service: ? Author [...] tolerated the procedure well. Plan: Appointment with Cristina.[facility]09-30-2022 NoteHNO ID: [id number] Author: Cristina Langley PA-C Service: ? Author Type: Physician [employer] Type: Progress Notes Filed: 05/16/2022 4:20 PM Note Text: [facility] [...] set him up with that appointment ph [phone] I spent a total of 30 minutes on the date of the service which included preparing to see the patient, face to face patient care, completing clinical documentation, obtaining and/or reviewing separately obtained h (more content not included)...[facility]09-30-2022 Miscellaneous Notes* Telephone Encounter - Afia Lockhartjesse Gonzalez - 04/06/2022 12:25 PM EDT Pt confirmed his appt with Dr. Mcknight in [place] [facility] 04/10/22 @ 10:15am. Clarita documented in this [facility]09-30-2022 History of Present illness Narrative* Marija Pettit [...] from the original note were not included. [facility] [...] set him up with that appointment ph [phone] I spent a total of 30 minutes on the date of the service which included preparing to see the patient, face to face patient care, completing clinical documentation, obtaining and/or reviewing separately obtained history, performing a medically appropriate examination, counseling and educating the pat ient/family/caregiver, ordering medications, tests, or procedures, and care coordination. ERIBERTO Wood, [place], SIXTO documented in this encounterOhio [facility] Hospital04-26-2022 NoteHNO ID: [id number] Author: Nacho Hernandez APRN.HANG Service: ? Author [...] agrees with plan of care. Nacho Hernandez APRN.[facility]ANGC[facility]04-26-2022 History of Present illness Narrative* Nacho Hernandez [...] care. Nacho Hernandez APRN.HANG documented in this [facility]Ohio [facility]12-08-2021 NoteHNO ID: [id number] Author: Anaya Avila PA-C Service: ? Author Type: Physician [employer] Type: Progress Notes Filed: 06/14/2021 12:22 PM [...] have confirmed and edited as necessary, the [facility] Review of Systems All other [...] month ago. Results will be released to [facility] in 24-48 hours. Discussed quarantine, social distancing, hand washing/proper hygiene. Rest, fluids, OTC medications discussed. - 2019 CORONAVIRUS Pt advised to see PCP if symptoms persist or progress. Reviewed red flags with patient and when to seek care sooner. The patient indicates understanding of these issues and agrees with the plan. ELIDIA Chatterjee-[facility]11-19-2021 Hospital Discharge instructions Patient Education 05/26/2021 15:35:11 COVID-19 Prevent the Spread of COVID-19 If You Are Sick (11/24/2019) (CUSTOM) Prevent the Spread of COVID-19 If You Are Sick Accessible version: https://www.cdc.gov/coronavirus/2019-ncov/pn-bau-hgr-sick/pdcwh-fotn-mmop.html If you are sick with COVID-19 or [...] Animals if you have questions about pets: https://www.cdc.gov/coronavirus/2019ncov/faq.html#RNBHU16efwmtmz Monitor your symptoms. Common symptoms of COVID-19 [...] and need to call 911, notify the dumping machine operator that you have or think you [...] clean your hands with an alcohol-based hand high worker that contains at least 60% alcohol. Clean your hands often. Wash your hands often with soap and water for at least 20 seconds. This is especially important after blowing your nose, coughing, or sneezing; going to the bathroom; and before eating or preparing food. Use hand high worker if soap and water are not available. Use an alcohol-based hand high worker with atleast 60% alcohol, covering all surfaces [...] and water or put them in the rockboard lather. Clean all high-touch surfaces everyday. Clean and [...] or body fluids on them. Use household house furnishings supervisor and disinfectants. Clean the area or item [...] consultation with your healthcare provider and formerly [facility], [facility] and local health departments. Local decisions depend on local circumstances. cdc.gov/coronavirus Follow Up Care 05/26/2021 15:17:51 With:Call Physician Referral Address:Unknown When:2-4 days [facility] Evaluation + Plan note No data available for this section [facility] Evaluation note* Diagnosis Cervical radiculopathy- Primary Brachial neuritis or radiculitis nos documented in this encounter [facility] Work Phone: Evaluation note* Diagnosis Upper back pain- Primary documented [facility] encounter [facility]* Diagnosis Testicular pain, right- Primary Unspecified disorder of male genital organs documented in this encounter [facility] note* Diagnosis Pain in right testicle- Primary Unspecified disorder of male genital organs documented in this encounter [facility] noteNo assessment information availableChildren[facility] Work Phone: Evaluation note* Description No Information Available [facility] Work Phone: Hospital Discharge instructions* Instructions* Robert [...] sent through Care Everywhere. * Cervical Pain (Divehi) documented in this [facility] Work Phone: Summary Purpose Family [...] Diagnoses Cervical radiculopathy Robert Roberts MD [address] [place] [address] [address] Hao Balderas [id number] [place] [address] Referral ID Status Reason Start Date Expiration Date V isits Requested Visits Authorized [id number] Open Specialty Services Required 05/17/2021 05/17/2022 1 1 Scheduling Instructions [facility] [place] [address] [place] [id number] Specialty Diagnoses / Procedures [facility] Referred To Contact Family Medicine Diagnoses C[place] [address] [place] [address] [facility] Hao Avalos [address] [address] Referral ID Status Reason Start Date Expiration Date V isits Requested Visits Authorized [id number] Open Specialty Services Required 05/17/2021 05/17/2022 1 1 Scheduling Instructions [facility] [address] [place] [address] Dr Zamora [address] [place] [id number] Description No Information Available Medications Administered Section [...] DATE CREATED AUTHOR AUTHOR'S ORGANIZ ATION 05/19/2021 [facility] DATE CREATED AUTHOR AUTHOR'S ORGANIZ ATION 05/28/2021 [facility] ([place]) DATE CREATED AUTHOR AUTHOR'S ORGANIZ ATION 04/11/2022 [facility] DATE CREATED AUTHOR AUTHOR'S ORGANIZ ATION 05/17/2022 [facility] DATE CREATED AUTHOR AUTHOR'S ORGANIZ ATION 11/06/2022 [facility] DATE CREATED AUTHOR AUTHOR'S ORGANIZ ATION 11/09/2022 Performance Indicator [facility] DATE CREATED AUTHOR AUTHOR'S ORGANIZ ATION 12/31/2022 [facility] DATE CREATED AUTHOR AUTHOR'S ORGANIZ ATION 12/31/2022 [facility] DATE CREATED AUTHOR AUTHOR'S ORGANIZ ATION 01/16/2023 [facility] Reason for Visit (unrecogniz ed section and content) Specialty Diagnoses / Procedures Referred By Alicia taylor Referred To Contact [facility] Diagnoses RIGHT SIDE PAIN AND TESTICULARE PAIN Procedures CARE, TEST , TREAT Self [facility] [address] [place] [place] [address] Referral ID Status Reason Start Date Expiration Date Visits Requested Visits Authorized [id number] Authorized Patient Cleared - Qualified HCAP/501/FA 03/30/2022 [...] or prosecute any alcohol or drug abuse patient.[facility] HospitalIn the event this information is protected by the Federal Confidentiality of Alcohol and Drug Abuse Patient Records regulations: The Federal rules restrict any use of the information to criminally investigate or prosecute any alcohol or drug abuse patient.[facility] HospitalIn the event this information is protected by the Federal Confidentiality of Alcohol and Drug Abuse Patient Records regulations: The Federal rules restrict any use of the information to criminally investigate or prosecute any alcohol or drug abuse patient.[facility] HospitalIn the event this information is protected by the Federal Confidentiality of Alcohol and Drug Abuse Patient Records regulations: The Federal rules restrict any use of the information to criminally investigate or prosecute any alcohol or drug abuse patient.[facility] Care Teams (unrecognized sec tion and content) [...] BE BASED ON THE PRIMARY CLINICAL RECORDS. [facility]. provides no warranty or guarantee of the accuracy or completeness of information in this document.
[2023-09-06 10:08] LABS: Pathologist Review Reviewed
== END 2023-09-04 17:38 | disposition home or self-care (01) ==
PROVIDERS: Emergency Provider Emergency Medicine; Visit Provider Emergency Medicine
DX: M70.31 Other bursitis of elbow, right elbow (principal); X58.XXXA Exposure to other specified factors, initial encounter; F17.210 Nicotine dependence, cigarettes, uncomplicated
CPT/HCPCS: 20605; 20610; 73080; 80048; 85025; 85652; 86140; 87070; 87075; 87205; 89050; 89051; 89060; 96374; 99284

== ENCOUNTER 2023-10-03 07:24 | Day surgery (SDC) | payer MEDICAID, SELFPAY ==
[2023-10-03] VITALS (7 sets, daily range): BP systolic 117–129; BP diastolic 68–81; PULSE 54–82; RESP 12–18; TEMP 36.2–36.4; O2SAT 89–100; BMI 20.7
[2023-10-03] MEDS: Lactated Ringers 1,000 ML 15 ML IV (07:50)
--- NOTE | 2023-10-03 09:35 | BUR_PTH ---
PATIENT: SWETHA CODY Jr. [place] [facility] [place][id number] AGE/SX: 33/M ROOM: RE10/03/[address]: Dr. Lux Kilgore DO : 1990 BED: DIS: 10/03/2023 SPEC #: [id number] RECD: 10/03/23 10:50 STATUS: WIL NAE #: [id number] RICHIE: 10/03/23 09:[address]: Lux Kilgore DEPT: SURGICAL PATHOLOGY RECD BY: Ramona Camilo ENTERED: 10/03/23 12:38 SP TYPE: BURSA OT DR: No Primary Care Phys Tissues: Bursa, NOS Procedures: Surgery Specimen Level III HEADER OPERATION: Irrigation and debridement right elbow bursectomy PRE-OP DIAGNOSIS: Right olecranon bursitis TISSUE SUBMITTED: Right olecranon bursa MICROSCOPIC DIAGNOSIS Right olecranon bursa, excision; Chronic inflammation. Focal fibrinoid degeneration and granulation. AM/mr 10/04/23 MICROSCOPIC DESCRIPTION Slides are reviewed. GROSS DESCRIPTION Received in fixative is one container labeled with the patient's name and designated Right olecranon bursa. The specimen consists of a piece of skelton congested indurated tissue measuring 5.0 x 4.0 x 1.0cm and do not identify any mass lesions. Cardiac Cath Lab Manager sections are submitted in two cassettes. ATIF/ 10/03/2023 TC:3 CPT: 95229
[2023-10-03] MEDS: Cefazolin 2 GM in 0.9% Normal Saline (100mL Bag) 100 ML IV (09:36)
[2023-10-03] MEDS: Oxycodone/Apap 5/325 Tablet PO (11:24)
--- NOTE | 2023-10-03 15:34 | OP.PCM_ITS ---
Report of Operation Date of Procedure: 10/03/23 Description of Surgical Findings:: Preoperative diagnosis: Right septic olecranon bursitis Postoperative diagnosis: Right septic olecranon bursitis Procedure: Right septic olecranon bursectomy with irrigation and debridement Surgeon: Lux Kilgore DO Clarifier: Kimberly Cisneros PA-C Anesthesia: General endotracheal Anesthesiologist: Dr. Goode Complications: None apparent Drains: None Estimated blood loss: 25 cc Urinary output: None IV fluids: Per anesthesia record Specimens: Aerobic and anaerobic cultures of bursal fluid Permanent specimen-right olecranon bursa Surgical implants: None Surgical indications: This is a 33-year-old male seen in the outpatient setting for recurrent right elbow olecranon bursitis. This has been septic in the past with overlying cellulitis. The bursa was aspirated in the emergency department and Cultures were positive for Staphylococcus lugdunensis on 07/29/2023. He was treated with oral antibiotics successfully with improvement of his erythema and swelling. There was persistent bursal fluid noted and concern for repeat septic bursitis developing. We discussed due to the persistent bursitis, olecranon bursectomy and irrigation debridement was indicated. The risks, benefits, alternatives to the procedure reviewed with patient at length. Informed consent was obtained in the office. Risks of the procedure included but were not limited to bleeding, persistent infection, loss of life or limb, persistent swelling, persistent pain, neurovascular injury, DVT or PE, tendon injury, wound complications, stiffness. Description of procedure: Patient was seen in preoperative holding area. He was identified by name, medical record number, date of . The operative extremity was marked with a surgical marker. We confirmed informed consent with the patient and all questions were answered to his satisfaction. Anesthesia consent was also obtained by the anesthesia team prior to procedure. A supraclavicular block was administered by anesthesia prior to the procedure. At time of his procedure, patient was brought to the operative suite and positioned supine on a standard operating table. 2 g Ancef was administered room time. General anesthesia was induced and laryngeal mask airway placed. All bony prominences well-padded. Patient was positioned in lateral decubitus position with the right side up. An axillary roll was placed. Fibular head was free on the down leg. All bony prominences were well-padded in the lateral decubitus position. We positioned the patient in the lateral decubitus position utilizing a beanbag. The operative extremity was brought over a radiolucent post. We then prepped and draped the right upper extremity in normal, sterile orthopedic fashion after spending the bed 90 degrees. We performed a timeout with all parties in attendance in agreement with the side, site, operation to be performed. No concerns were voiced elected proceed with surgery. I planned a curvilinear incision over the olecranon curving slightly radial. I did elect to size approximately two 1 cm maximal diameter around the incision to decrease redundant skin following bursectomy. Skin and subcutaneous tissue was sharply dissected with a 10 blade scalpel. Fluid was encountered after the bursal sac was entered. Fluid was serosanguineous without gross purulence. This was sent for culture. I then elevated the superficial bursal layer from the subcutaneous tissue. Superficial layer of the bursal sac was excised after elevating it from the skin flaps both radially and ulnarly. I carried the bursal excision deeper down to the level of the ulnar periosteum and fascia where it was dissected free from the underlying tissue. Triceps fascia was left intact. Wound was then copiously irrigated normal saline solution. Hemostasis was excellent. I then utilized a 0 Vicryl to reduce space by reapproximating the subcutaneous tissue to both the triceps fascia and the ulnar periosteum with quilting stitches. Dermis was reapproximated with 3-0 Vicryl suture. Skin was finally reapproximated with simple interrupted 3-0 nylon suture. Sterile compression dressing was then applied after the limb was cleansed. A well- padded posterior elbow fiberglass splint was then applied with the wrist free in 90 degrees of elbow flexion. Patient was then repositioned in the supine position. See it was safely extubated in the operative suite and transferred to his gurney and subsequently to PACU in stable condition. Need for skilled assistant gm of content & delivery: Kimberly Cisneros PA-C was critical to the outcome of the case. During the course of the procedure the physician assistant gm of content & delivery played a vital role. Her intimate knowledge of my steps in the procedure aided in safe and expedient completion of the procedure. The PA played a vital role in positioning particularly in obtaining the appropriate positioning. The PA was also vital in the retraction of soft tissues during the exposure and protecting vital structures. She also played a vital role in closure with my direct supervision. Post Operative Plan: Weightbearing: Nonweightbearing operative extremity Antibiotics: Ancef 2 g x 1 dose preoperatively, doxycycline twice daily for 10 days postoperatively DVT Prophylaxis: Early ambulation, aspirin 81 mg twice daily x 2 weeks Orr: None Dressing: Maintain splint until follow-up keep in a clean, dry and intact. X-Rays: None Pain Medication: Oxycodone prescription provided Follow-up: 2 week post-operatively with me in the office for wound check
== END 2023-10-03 11:53 | disposition home or self-care (01) ==
LOC: SDC 07:25 → AC 07:27
PROVIDERS: Referring Provider Student in an Organized Health Care Education/Training Program; Visit Provider Student in an Organized Health Care Education/Training Program
PROC: (CPT 24105; principal; 2023-10-03 09:20)
DX: M70.21 Olecranon bursitis, right elbow (principal); M77.11 Lateral epicondylitis, right elbow; F17.210 Nicotine dependence, cigarettes, uncomplicated
CPT/HCPCS: 23931; 01710; 64415; 87070; 87075; 87205; 88304; J7120; J2405

== ENCOUNTER 2024-02-25 10:53 | Emergency (ER) | payer MEDICAID, SELFPAY ==
[2024-02-25 10:54] VITALS: BP 136/74; PULSE 64; RESP 16; TEMP 36.4; O2SAT 97
--- NOTE | 2024-02-25 11:17 | EX.ED.UPPERE ---
HPI History of Present Illness HPI Narrative: 34-year-old male [id number]. No signet past medical history. I had a near fall when he caught himself on the wall he felt pain in his left shoulder. No prior shoulder surgery other than lymph node resection. Chief Complaint: Upper Extremity Injury Informant: patient Occured/Mechanism Mechanism/Context: Yes injury and Yes blunt trauma Onset/Context/Timing Onset: Today Context: Sudden Onset Timing: Continuous Current Severity: Moderate Maximum Severity: Moderate Associated Symptoms Associated Symptoms: Negative for Parasthesia, Weakness or Loss of Funtion Narrative Narrative: 34-year-old male [id number] injured left shoulder complaining of pain. Occurred around 930 this morning. No prior left shoulder surgery. Prior similar symptoms: No Recent Illness/Hospitalization: No PFSH PFSH Medical History Wears partial dentures Wears dentures Wears glasses Depression Anxiety Alcohol use Marijuana use Migraine headache Syncope Blackout Heartburn Gastric reflux Smoker Chest pain PONV (postoperative nausea and vomiting) Back pain Home Medications ?Medication ?Instructions ?Recorded ?Last Taken ?Type ibuprofen 600 mg tablet 600 mg PO Q6H PRN PRN pain #20 09/04/23 Unknown Rx TABLETS doxycycline hyclate 100 mg tablet 100 mg PO BID 10 days #20 tabs 10/03/23 Unknown Rx oxycodone 5 mg tablet 5 mg PO Q6H PRN pain 7 days #28 10/03/23 Unknown Rx tabs Allergy/AdvReac Type Severity Reaction Status Date / Time adhesive tape Allergy Rash Verified 10/03/23 07:35 sulfamethoxazole (From Allergy Rash Verified 10/03/23 07:35 Bactrim) trimethoprim (From Bactrim) Allergy Rash Verified 10/03/23 07:35 Surgical History History of wisdom tooth extraction Hx of cholecystectomy Hx of lymph node excision Social History Smoking Status: Current every day smoker tobacco type: cigarettes ROS ROS ED ROS Narrative Denies recent illness. Constitutional Constitutional ED: Denies fever(s) Eyes Eyes: Denies blurry vision ENT ENT ED: Denies ear pain Cardiovascular Cardiovascular: Denies chest pain Respiratory/Chest Respiratory/Chest: Denies cough or dyspnea Gastrointestinal Gastrointestinal: Denies abdominal pain Genitourinary Genitourinary ED: Denies dysuria or hematuria Musculoskeletal Musculoskeletal: Denies back pain or myalgias Integumentary Denies abscess or Abrasions Neurologic Neurologic: Denies headache(s) Psychiatric Psychiatric: Denies anxiety or depression Endocrine Endocrinology: Denies cold intolerance Hematologic/Lymphatic Hematologic/Lymphatic: Denies easy bleeding or easy bruising Allergic/Immunologic Allergic/Immunologic ED: Denies mouth swelling or tongue swelling EXAM Physical Exam Narrative Exam Narrative: 34-year-old male vital signs stable afebrile. H EENT exam unremarkable. Neck nontender. Lungs clear. Heart regular rhythm. Rate about 65. Chest wall ribs nontender. Abdomen soft nontender. Right upper both lower extremities nontender. Mild tenderness of the left shoulder and left posterior exterior trapezius. No bony deformity. No obvious dislocation. He has normal flexion extension of the elbow. Nontender to forearm. Normal radial pulse. Wrist and hand are nontender. 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 Normal sensation. He can extend his left arm he will not raise it over his head due to discomfort. Clinically this appears to be a shoulder strain sprain. X-ray will be obtained to rule out fracture or dislocation clinically I do not think is dislocated. Const Vital Signs: 02/25/24 10:54 Temperature 97.6 F L Temperature Source Temporal Pulse Rate 64 Respiratory Rate 16 Blood Pressure 136/74 H Blood Pressure Mean 94 Pulse Ox 97 Oxygen Delivery Method Room Air Positive well nourished and well developed; Negative for obese, cachectic, contractures or unkempt General Appearance ED: well developed and NAD; Negative for unkempt, cachectic, contractures, cyanotic or diaphoretic Nutritional Appearance: Negative for cachectic or obese HEENT Reports moist mucous membranes normocephalic and atraumatic; Negative for trauma or tenderness Eyes PERRL and EOMs intact bilaterally General Eye ED: Negative for other Neck full ROM and supple General: Negative for tenderness Lymph Lymphatic: Negative for other Chest Wall inspection of chest normal and palpation of chest normal Resp normal respiratory effort and clear to auscultation bilaterally Effort and Inspection: Negative for pain with movement Auscultation: Negative for rales, rhonchi or wheezes Cardio regular rate, regular rhythm, S1 normal heart sound, S2 normal heart sound and no murmurs Rate: Negative for bradycardia or tachycardic Rhythm: Negative for abnormal rhythm GI non-tender, non-distended and no masses Inspection: Negative for abdominal distention Auscultation: normoactive bowel sounds Palpation: soft; Negative for tender or guarding Back/Spine no CVA tenderness General Back: Negative for CVA tenderness Cervical Spine: Negative for cervical spine tenderness Thoracic Spine / Upper Back: Negative for thoracic spinal tenderness Lumbar Spine / Lower Back: Negative for lumbar spinal tenderness Extremity normal to inspection and full ROM Extremity Narrative: Except left shoulder. Diffuse tenderness. Primarily soft tissue. No gross bony deformity. Able to extend. Too much pain for the patient and lifted over his head. Left hand is neurovascularly intact. Clinically suspect shoulder strain sprain. General Extremety ED: Negative for edema General Extremity: Negative for edema Neuro oriented x3, CN's II-XII intact bilaterally, moves all extremities, no focal motor deficits and no sensory deficits noted Sensorium / Orientation: alert, oriented to person, oriented to place and oriented to time; Negative for orientation impaired or lethargic Motor Exam: strength 5/5 throughout Psych mental status grossly normal Appearance: Negative for unkempt Attitude: No agitated Mood & Affect: Negative for depressed, anxious or tearful Skin General Skin Exam: Negative for petechiae Lesions: no lesions Rashes: no rashes Trauma: no lacerations or abrasions; Negative for abrasion MDM MDM MDM Narrative Medical decision making narrative: 34-year-old left shoulder injury x-ray being obtained. Sarah Ann for pain. Repeat exam no change. Will be treated as a shoulder strain. Sling. Off to do range of motion. Motrin for pain and Tylenol. Outpatient orthopedic follow-up if not improving. History & Record Review Discussion w/independent historian: Patient Radiography Diagnostic Testing: Left shoulder x-ray 2 views of myself shows no acute abnormality. No fracture or dislocation. Also read by the radiologist and agrees. Discharge Plan Triage Chief Complaint: Upper Extremity Injury ED Provider: Zhou Myrick Dx/Rx/DC Orders Clinical Impression: Left shoulder strain Instructions: ED Shoulder Sprain Prescriptions: No Action ibuprofen 600 mg tablet 600 mg PO Q6H PRN PRN (Reason: pain) Qty: 20 0RF doxycycline hyclate 100 mg tablet 100 mg PO BID 10 Days Qty: 20 0RF oxycodone 5 mg tablet 5 mg PO Q6H PRN (Reason: pain) 7 Days Qty: 28 0RF Primary Care Provider: Care Physician,No Primary Referrals: Care Physician,No Primary [Primary Care Provider] - Activity Restrictions/Additional Instructions: Sling for comfort but taken off to sleep and vape. Do range of motion with your shoulder is much as possible to prevent stiffness. If not improving follow-up with orthopedics Dr. Everett Willis of [facility] for further evaluation. Your x-ray was normal. This to be treated as strained shoulder. Print Language: Montserratian Disposition Disposition: Home, Self Care
[2024-02-25] MEDS: HYDROcodone Bitartrate/Apap 5/325 Tablet PO (11:21)
--- NOTE | 2024-02-25 11:27 | RAD_ITS ---
STUDY: X-RAY - LEFT SHOULDER REASON FOR EXAM: Male, 34 years old. Left shoulder injury due to a fall. TECHNIQUE: 2 view(s) of the shoulder. COMPARISON: None. FINDINGS: Normal glenohumeral articulation. Normal acromioclavicular joint. Normal acromion. Normal humeral head and visualized proximal humerus. Surgical clips are seen in the left axillary region. Normal visualized pulmonary apex. RAD/Shoulder min 2 Views IMPRESSION: Normal x-ray examination of the shoulder. Electronically Signed: Manuel Emery MD at 11:37 EDT ,
[2024-02-25 12:07] VITALS: BP 135/67; PULSE 71; RESP 15; TEMP 36.6; O2SAT 99
== END 2024-02-25 12:08 | disposition home or self-care (01) ==
PROVIDERS: Emergency Provider Emergency Medicine; Visit Provider Emergency Medicine
DX: S46.812A Strain of other muscles, fascia and tendons at shoulder and upper arm level, left arm, initial encounter (principal); W22.09XA Striking against other stationary object, initial encounter; F17.210 Nicotine dependence, cigarettes, uncomplicated
CPT/HCPCS: 73030; 99282

== ENCOUNTER 2024-03-10 13:27 | Emergency (ER) | payer MEDICAID, SELFPAY ==
[2024-03-10 13:28] VITALS: BP 135/88; PULSE 65; RESP 16; TEMP 36.3; O2SAT 100; BMI 20.6
== END 2024-03-10 14:37 | disposition left against medical advice (07) ==
LOC: ED 14:44
DX: Z53.21 Procedure and treatment not carried out due to patient leaving prior to being seen by health care provider (principal)

== ENCOUNTER → 2024-03-10 | Outpatient (CLI) | payer MEDICAID, SELFPAY ==
--- NOTE | 2024-03-10 17:20 | RAD_ITS ---
STUDY: X-RAY - LEFT FOOT CLINICAL: Male, 34 years old. Pain TECHNIQUE: 3 view(s) of the foot. COMPARISON: None. FINDINGS: Normal talus, calcaneus, and tarsal bones. Normal visualized subtalar, talonavicular, calcaneocuboid, tarsal and tarsometatarsal articulations. Normal metatarsi. Normal metatarsophalangeal joint of the great toe. Normal tibial and fibular sesamoid bones. Normal interphalangeal joint of the great toe. Normal phalanges of the great toe. Normal second through fifth metatarsophalangeal joints. Normal interphalangeal joints and phalanges of the lesser toes. The soft tissue structures are unremarkable. There is no demonstrated fracture. RAD/Foot min 3 Views IMPRESSION: Normal x-ray examination of the foot. Electronically Signed: Gato Demarco MD at 18:31 EDT ,
== END | disposition home or self-care (01) ==
LOC: MTRAD 17:18
PROVIDERS: Referring Provider Physician Assistant; Visit Provider Physician Assistant
DX: M79.672 Pain in left foot (principal)
CPT/HCPCS: 73630

== ENCOUNTER 2024-04-07 09:20 | Emergency (ER) | payer MEDICAID, SELFPAY ==
[2024-04-07 09:20] VITALS: BP 132/82; PULSE 59; RESP 14; TEMP 36.3; O2SAT 98; BMI 20.6
--- NOTE | 2024-04-07 09:43 | EDS_ITS ---
HPI History of Present Illness Chief Complaint: Back Detail of Chief Complaint: Bilateral low back pain that started yesterday. Informant: patient and spouse/S.O. Onset/Context/Timing Onset: Yesterday Context: Sudden Onset Chronic pain exacerbated by: Movement Injury: - (Was on trampoline with kids this past weekend. No history of direct trauma) Timing: Continuous Quality: Dull and Aching Location: Lumbar, Buttock and Right Leg Current Severity: Mild Maximum Severity: Severe Worsened by: improves with Movement, Ambulation and Bending Relieved by: Nothing Associated Symptoms Associated Symptoms: Radiation to Right Leg (This states the pain goes to the right greater trochanteric region and anterior lateral right thigh and stops at the knee.) and - (Denies saddle paresthesia or anesthesia.); Negative for Numbness, Tingling, Radiation to Left Leg, Fever, Abdominal Pain, Dysuria, Unable to Ambulate, Unable to Transfer, Urinary Retention, Urinary Incontinence, Constipation or Fecal Incontinence Narrative Narrative: Patient is a 34-year-old male. He was playing with the kids on the trampoline this past weekend. Pain started yesterday. Pain is gotten worse. He is applied heat and lying on the heating pad for some time. He also was in a hot tub. He has not applied ice. He has done nothing else for the pain. He presents today because the pain is worse. He denies bowel bladder dysfunction. He denies any true radicular pain. He denies foot drop. He denies back on his knees going up or down steps. states he walks slowly up and down the steps. Prior similar symptoms: No Recent Illness/Hospitalization: No [facility] Medical History Plantar fasciitis, left Sprain of left foot Wears partial dentures Wears dentures Wears glasses Depression Anxiety Alcohol use Marijuana use Migraine headache Syncope Blackout Heartburn Gastric reflux Smoker Chest pain PONV (postoperative nausea and vomiting) Back pain Home Medications ?Medication ?Instructions ?Recorded ?Last Taken ?Type ibuprofen 600 mg tablet 600 mg PO Q6H PRN PRN pain #20 09/04/23 Unknown Rx TABLETS prednisone 10 mg tablet 10 mg PO DAILY #30 tabs 03/10/24 Unknown Rx naproxen 500 mg tablet 500 mg PO BID #14 tabs 04/07/24 Unknown Rx Allergy/AdvReac Type Severity Reaction Status Date / Time adhesive tape Allergy Rash Verified 04/07/24 09:20 sulfamethoxazole (From Allergy Rash Verified 04/07/24 09:20 Bactrim) trimethoprim (From Bactrim) Allergy Rash Verified 04/07/24 09:20 Surgical History History of wisdom tooth extraction Hx of cholecystectomy Hx of lymph node excision Social History Smoking Status: Current every day smoker tobacco type: cigarettes ROS ROS ED Constitutional Constitutional ED: Denies chills, fever(s), subjective, sweats or weight loss Gastrointestinal Gastrointestinal: Denies abdominal pain, constipation, diarrhea, nausea or vomiting Genitourinary Genitourinary ED: Denies dysuria, hematuria or urinary frequency Musculoskeletal Musculoskeletal: Reports back pain; Denies arthralgias or myalgias Integumentary Denies rash Neurologic Neurologic: Denies paresthesias or weakness Hematologic/Lymphatic Hematologic/Lymphatic: Denies easy bleeding or easy bruising EXAM Physical Exam Const Vital Signs: 04/07/24 09:20 Temperature 97.3 F L Temperature Source Temporal Pulse Rate 59 L Respiratory Rate 14 Blood Pressure 132/82 H Blood Pressure Mean 98 Pulse Ox 98 Oxygen Delivery Method Room Air Positive well nourished and well developed Constitutional Narrative: Patient appears uncomfortable. Patient grimaces with movement. General Appearance ED: well developed; Negative for pallor HEENT Reports moist mucous membranes HEENT Narrative: Atraumatic and normocephalic. Ears normal. Eyes PERRL and EOMs intact bilaterally General Eye ED: Negative for scleral icterus Resp normal respiratory effort and clear to auscultation bilaterally Cardio regular rate, regular rhythm, S1 normal heart sound, S2 normal heart sound and no murmurs GI normal to inspection, nondistended, normoactive bowel sounds, soft to palpation, non-tender, non-distended and no masses Back/Spine normal to inspection Back/Spine Narrative: There is pain no patient right paralumbar region and near the left posterior iliac spine. Bending to right and left causes him discomfort predominately on the right side. Patient is reluctant to flex or extend because of pain. Gait was observed. He has no foot drop. Is able to walk on heels and toes. He is able to perform 1 legged squat right and left side. Patella and ankle reflex are 2+. Patient describes altered sensation multiple dermatomes and not in a radicular pattern. EHLs intact bilaterally. DP pulses 2+ and symmetric. Straight leg test is negative bilaterally. Lumbar Spine / Lower Back: ROM limited and straight leg raise negative bilaterally Extremity normal to inspection and no clubbing, cyanosis or edema Neuro oriented x3 Neuro Narrative: Patient reports also sensation L3, L4, L5 and S1 dermatome on the right. [id number] he states he has no sensation. Based on motor strength and DTRs this does not make sense is not consistent with herniated disc, or any acute neurologic problem with his spine. Deep Tendon Reflexes: Rt Patellar (L4): 2+, Lt Patellar (L4): 2+, Rt Ankle (S1): 2+ and Lt Ankle (S1): 2+ Deep Tendon Reflexes Back: Rt Patellar (L4): 2+, Lt Patellar (L4): 2+, Rt Ankle (S1): 2+ and Lt Ankle (S1): 2+ Plantar Reflex: Downgoing: bilateral (There is no clonus right or left.) Psych Mood & Affect: depressed Skin no rashes or lesions noted and no wounds General Skin Exam: Negative for jaundice or pallor MDM MDM MDM Narrative Medical decision making narrative: Patient's history and physical is consistent with muscular low back pain. Patient was medicated with oral meds in the department and discharged with prescription for NSAIDs. Patient was instructed no heat. He is to apply ice 6- 10 times a day. He was told it may take several days for him to experience significant improvement. Furthermore, in my opinion laboratory testing or advanced imaging is not warranted or indicated at this time. Suspect patient's elevated blood pressure is due to the fact that he is in discomfort. He has been instructed follow-up with his doctor. He stated he did not have a doctor. He was informed that the name of his provider is located on his insurance card issued to him by [employer]. History & Record Review Discussion w/independent historian: Patient and Significant other Additional record(s) reviewed:: Prior outpatient record (Seen March 10, 2024 for plantar fasciitis), Prior ED visit (ED visit February 24 for shoulder strain and August 2023 for olecranon bursitis) and Prior labs Discharge Plan Triage Chief Complaint: Back ED Provider: Wilder Rhodes Dx/Rx/DC Orders Clinical Impression: Acute myofascial strain of lumbar region, Elevated blood-pressure reading without diagnosis of hypertension Instructions: ED Back Sprain/Strain, ED Hypertension, To Be Confirmed Prescriptions: New naproxen 500 mg tablet 500 mg PO BID Qty: 14 0RF No Action prednisone 10 mg tablet 10 mg PO DAILY Qty: 30 0RF Rx Instructions: 4 tablets daily x3 days, then 3 tablets daily x3 days, then 2 tablets daily x3 days, then 1 tablet daily x3 days ibuprofen 600 mg tablet 600 mg PO Q6H PRN PRN (Reason: pain) Qty: 20 0RF Primary Care Provider: Care Physician,No Primary Referrals: Care Physician,No Primary [Primary Care Provider] - Doctor,Your [Non-Staff] - 1-2 Weeks Activity Restrictions/Additional Instructions: 1. Apply ice 6-10 times a day for the next 3 to 5 days 2. Take medication as prescribed 3. Avoid any lifting for the next several days. 4. Return if you are unable to urinate, loss of bowel control or dragging your foot when you walk. Print Language: Zambian Disposition Disposition: Home, Self Care
[2024-04-07] MEDS: HYDROcodone Bitartrate/Apap 5/325 Tablet PO (09:51)
[2024-04-07] MEDS: Naproxen 500 MG Tablet PO (09:51)
[2024-04-07] MEDS: diazePAM 2 MG Tablet PO (09:51)
[2024-04-07 10:11] VITALS: BP 128/74; PULSE 53
== END 2024-04-07 10:13 | disposition home or self-care (01) ==
LOC: ED 10:12
PROVIDERS: Emergency Provider Emergency Medicine; Visit Provider Emergency Medicine
DX: S39.012A Strain of muscle, fascia and tendon of lower back, initial encounter (principal); X58.XXXA Exposure to other specified factors, initial encounter; R03.0 Elevated blood-pressure reading, without diagnosis of hypertension; F17.210 Nicotine dependence, cigarettes, uncomplicated
CPT/HCPCS: 99283

== ENCOUNTER 2024-06-10 21:53 | Emergency (ER) | payer MEDICAID, SELFPAY ==
[2024-06-10 21:54] VITALS: BP 161/87; PULSE 83; RESP 15; TEMP 36.4; O2SAT 99; BMI 20.9
--- NOTE | 2024-06-10 22:06 | EX.ED.UPPERE ---
HPI History of Present Illness HPI Narrative: Patient presents with pain in his left elbow and forearm that has been getting worse over the past 2 weeks. Patient describes it as sharp and stabbing. Patient states it is worse with any lifting with any pressure. Patient states nothing seems to help with it. Patient admits to some tingling down into his fingers. Patient denies any trauma or injury. Patient denies any pain over his upper arm. Chief Complaint: Upper Extremity Injury Informant: patient Onset/Context/Timing Onset: Weeks (2) Context: Gradual Onset Timing: Continuous Quality of Pain: Sharp and Stabbing Location: Left forearm and elbow Worsened by: Lifting, palpation and pressure Relieved by: Nothing Associated Symptoms Associated Symptoms: Positive for Parasthesia; Negative for Weakness or Loss of Funtion PFSH PFS Medical History Plantar fasciitis, left Sprain of left foot Wears partial dentures Wears dentures Wears glasses Depression Anxiety Alcohol use Marijuana use Migraine headache Syncope Blackout Heartburn Gastric reflux Smoker Chest pain PONV (postoperative nausea and vomiting) Back pain Home Medications ?Medication ?Instructions ?Recorded ?Last Taken ?Type naproxen 500 mg tablet 500 mg PO BID PRN #20 tabs 06/10/24 Unknown Rx Allergy/AdvReac Type Severity Reaction Status Date / Time adhesive tape Allergy Rash Verified 06/10/24 21:55 sulfamethoxazole (From Allergy Rash Verified 06/10/24 21:55 Bactrim) trimethoprim (From Bactrim) Allergy Rash Verified 06/10/24 21:55 Surgical History History of wisdom tooth extraction Hx of cholecystectomy Hx of lymph node excision Social History Smoking Status: Current every day smoker tobacco type: cigarettes ROS ROS ED Constitutional Constitutional ED: Denies chills or fever(s) Eyes Eyes: Denies blurry vision or change in vision ENT ENT ED: Denies rhinorrhea or sore throat Cardiovascular Cardiovascular: Denies chest pain or palpitations Respiratory/Chest Respiratory/Chest: Reports cough; Denies dyspnea Gastrointestinal Gastrointestinal: Denies nausea or vomiting Genitourinary Genitourinary ED: Denies dysuria or hematuria Musculoskeletal Musculoskeletal: Denies back pain or neck pain Integumentary Denies abscess or rash Neurologic Neurologic: Reports headache(s); Denies weakness Allergic/Immunologic Allergic/Immunologic ED: Denies mouth swelling or urticaria EXAM Physical Exam Const Vital Signs: 06/10/24 21:54 Temperature 97.5 F L Temperature Source Oral Pulse Rate 83 Respiratory Rate 15 Blood Pressure 161/87 H Blood Pressure Mean 111 Pulse Ox 99 Oxygen Delivery Method Room Air Positive well nourished and well developed General Appearance ED: well developed and NAD HEENT Reports moist mucous membranes Neck full ROM and supple Extremity Extremity Narrative: There is mild tenderness to palpation over the medial and lateral epicondyles of the left elbow. There is no bony crepitance or step-off. There is no deformity noted. Range of motion was slightly limited in all motions of the left elbow secondary to pain. Neuro oriented x3, CN's II-XII intact bilaterally, moves all extremities and no focal motor deficits Neuro Narrative: There is slight decrease sensation to light touch over the median nerve distribution over the left forearm and hand. Sensorium / Orientation: alert Motor Exam: strength 5/5 throughout MDM MDM MDM Narrative Medical decision making narrative: Patient was advised that this is most likely tendinitis or epicondylitis. Patient was also advised that this could be carpal tunnel syndrome. Patient does not need any x-rays at this time. Patient was instructed to ice and elevate the left upper extremity. Patient was given a prescription for Naprosyn. Patient was instructed to follow-up with his primary care physician in 5 to 7 days. Patient understood and was agreeable with the plan. All questions were answered. Discharge Plan Triage Chief Complaint: Upper Extremity Injury ED Provider: Ra Leonard Dx/Rx/DC Orders Clinical Impression: Left elbow tendinitis, Paresthesias in left hand Instructions: ED Tendonitis, ED Paraesthesias Prescriptions: New naproxen 500 mg tablet 500 mg PO BID PRN Qty: 20 0RF Stand Alone Forms: ED Work / School Excuse Primary Care Provider: Care Physician,No Primary Referrals: Shae Renner MD [Med Staff - Employee Development Director] - 5-7 Days Care Physician,No Primary [Primary Care Provider] - Print Language: Setswana Disposition Disposition: Home, Self Care
[2024-06-10] MEDS: Naproxen 500 MG Tablet PO (22:40)
== END 2024-06-10 22:42 | disposition home or self-care (01) ==
LOC: ED 22:30
PROVIDERS: Emergency Provider Emergency Medicine; Visit Provider Emergency Medicine
DX: M67.824 Other specified disorders of tendon, left elbow (principal); R20.2 Paresthesia of skin; F17.210 Nicotine dependence, cigarettes, uncomplicated
CPT/HCPCS: 99282

== ENCOUNTER 2024-10-27 09:56 | Emergency (ER) | payer MEDICAID, SELFPAY ==
[2024-10-27 09:56] VITALS: BP 150/89; PULSE 66; RESP 19; TEMP 36.7; O2SAT 99; BMI 22.0
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
[2024-10-27] MEDS: Ibuprofen 600 MG Tablet PO (10:10)
--- NOTE | 2024-10-27 10:20 | RAD_ITS ---
PROCEDURE: KNEE 4 OR MORE VIEWS 10/27/2024 REASON FOR EXAM: INJURY TECHNIQUE: 4 view(s) of the left knee COMPARISON: None FINDINGS: Bones: No fracture. No suspicious bone lesion. Joints: Normal alignment. Mild degenerative changes. Effusion: No effusion. Soft tissues: Soft tissues are unremarkable. Other: RAD/Knee 4 or More Views IMPRESSION: NO EFFUSION ACUTE FRACTURE OR DISLOCATION. Reading Location: [place] [address]
== END 2024-10-27 10:51 | disposition home or self-care (01) ==
PROVIDERS: Emergency Provider Emergency Medicine; Visit Provider Emergency Medicine
DX: M23.8X2 Other internal derangements of left knee (principal); W50.1XXA Accidental kick by another person, initial encounter; F17.210 Nicotine dependence, cigarettes, uncomplicated
CPT/HCPCS: 73564; 99282